=== PATIENT | male | born 1945 | race Caucasian/White ===

== ENCOUNTER 2021-07-29 07:40 | Outpatient (REF) | payer MEDICARE, SELFPAY ==
[2021-07-29 10:08] LABS: MANUAL DIFF FLAG NO
[2021-07-29 10:12] LABS: Basophils Absolute Auto 0.1 X10*3/uL (0.0-0.2); Basophils Percent Auto 1.1 % (0-2); Eosinophils Absolute Auto 0.4 X10*3/uL (0.0-0.4); Eosinophils Percent Auto 4.2 % (0-4); Hematocrit 44.8 % (42.0-52.0); Hemoglobin 14.7 g/dl (14.0-18.0); Imm Gran Abs Auto 0.03 X10*3/uL (0.00-0.03); Imm Gran Pct Auto 0.3 % (0.0-0.4); Lymphocytes Absolute Auto 2.1 X10*3/uL (1.2-4.9); Lymphocytes Percent Auto 22.1 % (20-40); Mean Corpuscular HGB Conc 32.8 g/dl (31.0-36.0); Mean Corpuscular Hemoglobin 32.2 pg (27.0-33.0); Mean Corpuscular Volume 98.2 fL (80.0-98.0); Mean Platelet Volume 10.3 fL (9.4-12.4); Monocytes Absolute Auto 0.8 X10*3/uL (0.1-1.2); Neutrophils Percent Auto 64.3 % (45-73); Platelet Count 234 X10*3/uL (160-400); Red Blood Count 4.56 X10*6/uL (4.60-5.80); White Blood Count 9.4 X10*3/uL (4.8-10.8)
[2021-07-29 10:49] LABS: Appearance Urine CLEAR; Color Urine YELLOW; Glucose Urine UA NEG (NEG); Leukocyte Esterase Urine NEG (NEG); Nitrite Urine NEG (NEG); Specific Gravity - Urine 1.025 (1.005-1.025); Urine Blood TRACE (NEG); Urine Ketones NEG (NEG); Urine Protein NEG (NEG-TRACE)
[2021-07-29 10:52] LABS: Alanine Aminotransferase 14 U/L (0-40); Albumin Level 3.9 g/dL (3.5-5.0); Alkaline Phosphatase 74 U/L (39-117); Anion Gap 13 (12-20); Aspartate Amino Transferase 22 U/L (5-37); Bilirubin Total 0.5 mg/dL (0.0-1.0); Blood Urea Nitrogen 16 mg/dL (9-16); Carbon Dioxide 27 mmol/L (22-29); Chloride 107 mmol/L (96-108); Cholesterol 164 mg/dL; Estimated Glomerular Filt Rate > 60; Glucose Fasting 87 mg/dL (60-99); HDL Cholesterol 75 mg/dL; LDL Cholesterol Calculated 78 mg/dl; Potassium 4.6 mmol/L (3.3-5.1); Sodium 142 mmol/L (135-145); Total Protein 6.7 g/dL (6.5-8.0); Triglycerides 58 mg/dL
[2021-07-29 11:14] LABS: Prostate Specific Antigen Scr 0.85 ng/mL (<0.05-4.0)
[2021-07-29 11:31] LABS: Squamous Epithelial Cell Urine TRACE /LPF
== END 2021-07-29 07:41 | disposition home or self-care (01) ==
LOC: HO.10HDL 07:40
PROVIDERS: Visit Provider Internal Medicine
DX: E78.00 Pure hypercholesterolemia, unspecified (principal); N40.0 Benign prostatic hyperplasia without lower urinary tract symptoms; J44.9 Chronic obstructive pulmonary disease, unspecified; Z12.5 Encounter for screening for malignant neoplasm of prostate; Z86.79 Personal history of other diseases of the circulatory system
CPT/HCPCS: 36415; 80053; 80061; 81001; 84153; 85025

== ENCOUNTER 2021-08-06 07:33 | Outpatient (REF) | payer MEDICARE, SELFPAY ==
[2021-08-06 10:27] LABS: Urine Cytology See Pathology rpt
[2021-08-06 10:34] LABS: Appearance Urine CLEAR; Color Urine YELLOW; Glucose Urine UA NEG (NEG); Leukocyte Esterase Urine NEG (NEG); Nitrite Urine NEG (NEG); UACC Culture Trigger NO; Urine Blood TRACE (NEG); Urine Ketones NEG (NEG); Urine Protein NEG (NEG-TRACE)
[2021-08-06 10:46] LABS: WBC Urine 0 /HPF (0-4)
[2021-08-06 10:47] LABS: Squamous Epithelial Cell Urine TRACE /LPF
== END 2021-08-06 07:34 | disposition home or self-care (01) ==
LOC: HO.10HDL 07:33
PROVIDERS: Visit Provider Internal Medicine
DX: R31.9 Hematuria, unspecified (principal)
CPT/HCPCS: 81001; 87086; 88112

== ENCOUNTER 2022-04-18 15:27 | Outpatient (REF) | payer MEDICARE, SELFPAY ==
--- NOTE | ~2022-04-18 | CT_ITS ---
EXAMINATION: CT CHEST SCREENING CLINICAL INFORMATION: Current smoker. 60 pack year history. COMPARISON: None. TECHNIQUE: Multidetector volumetric CT imaging of the chest is performed without contrast using low dose technique. Additional 2D coronal and sagittal reformatted images and axial 3D maximum intensity projection (MIP) images are generated on the CT workstation. This CT examination was performed using dose optimization techniques as appropriate, variously including the following: *Automated exposure control *Adjustment of mA and/or kV according to patient size (this includes techniques or standardized protocols for targeted exams where dose is matched to indication/reason for exam; i.e. extremities or head) *Use of iterative reconstruction technique DLP: 54 mGy-cm FINDINGS: LUNGS: There is evidence of paraseptal emphysema. There is a 3 mm calcified right upper lobe nodule axial image 103 series 5. There is a 3 mm noncalcified left upper lobe nodule axial image 107 series 5. There is mild scarring or atelectasis in the apical posterior segment of the left upper lobe near the fissure axial image 123 series 5. There is a 2 mm right upper lobe nodule axial image 168 series 5. There is a 5 mm calcified right upper lobe nodule axial image 173 series 5. There is a 3 mm calcified right lower lobe nodule axial image 379 series 5. There is a 2 mm calcified right lower lobe nodule axial image 283 series 5. There are clustered peribronchial nodules in the lingula and anterior left lower lobe suggestive of airways disease. No endobronchial or endotracheal lesion. MEDIASTINUM: Atherosclerotic disease and coronary artery calcification. The thoracic aorta is upper normal in size. The mediastinum is otherwise normal. PLEURA: There is no pleural effusion. No pleural mass or thickening. AXILLA: No lymphadenopathy. UPPER ABDOMEN: Unremarkable OSSEOUS STRUCTURES: Mild scoliosis and degenerative changes of the spine. CT/CT lung screening IMPRESSION: Emphysema and small calcified and noncalcified pulmonary nodules. Clustered peribronchial nodules in the left lung base suggestive of tree-in-bud appearance or airways disease. Coronary artery calcification and atherosclerotic disease ASSESSMENT: Lung-RADS category 2: Benign RECOMMENDATION: Annual low-dose chest CT follow-up recommended.
== END 2022-04-18 15:28 | disposition home or self-care (01) ==
LOC: HO.CT 15:27
PROVIDERS: PCP Internal Medicine; Visit Provider Physician Assistant Medical
DX: F17.210 Nicotine dependence, cigarettes, uncomplicated (principal)
CPT/HCPCS: 71271; G0296

== ENCOUNTER 2023-01-01 10:14 | Outpatient (REF) | payer MEDICARE, SELFPAY ==
[2023-01-01 11:37] LABS: Appearance Urine Clear; Color Urine Yellow; Glucose Urine UA Negative (Negative); Leukocyte Esterase Urine Negative (Negative); Nitrite Urine Negative (Negative); PH 6.5 (5.0-9.0); Urine Blood Negative (Negative); Urine Ketones Negative (Negative); Urine Protein Negative (Neg-Trace)
[2023-01-01 12:36] LABS: Alanine Aminotransferase 12 U/L (0-40); Albumin Level 3.8 g/dL (3.5-5.0); Alkaline Phosphatase 78 U/L (39-117); Anion Gap 14 (12-20); Aspartate Amino Transferase 23 U/L (5-37); Bilirubin Total 0.6 mg/dL (0.0-1.0); Blood Urea Nitrogen 17 mg/dL (9-16); Carbon Dioxide 25 mmol/L (22-29); Chloride 106 mmol/L (96-108); Estimated Glomerular Filt Rate > 60; Glucose Fasting 83 mg/dL (60-99); Potassium 4.9 mmol/L (3.3-5.1); Prostate Specific Antigen 0.92 ng/mL (<0.05-4.0); Sodium 140 mmol/L (135-145); Total Protein 6.6 g/dL (6.5-8.0)
== END 2023-01-01 10:15 | disposition home or self-care (01) ==
LOC: HO.10HDL 10:14
PROVIDERS: Visit Provider Internal Medicine
DX: Z00.00 Encounter for general adult medical examination without abnormal findings (principal); Z12.5 Encounter for screening for malignant neoplasm of prostate; R82.90 Unspecified abnormal findings in urine
CPT/HCPCS: 36415; 80053; 81003; 84153; 87086

== ENCOUNTER 2023-05-12 09:34 | Outpatient (AMB) | payer MEDICARE, SELFPAY ==
[2023-05-12 09:38] VITALS: BP 120/64; PULSE 101; O2SAT 97; BMI 25.6
--- NOTE | 2023-05-12 09:38 | MHC.PC.OV ---
Vital Signs 05/12/23 09:38 Height 5 ft 11 in Weight 183 lb 4 oz BMI 25.6 BP 120/64 Blood Pressure Location Rt brachial Position Sitting Pulse 101 H Pulse Source Pulse Oximeter Pulse Oximetry (%) 97 Oxygen Delivery Method Room Air Intake Visit Reasons: New Patient-general check up Intake Note: Patient is here as a new patient, would like his ears looked at. Has a history of skin cancer. Allergies No Known Allergies Allergy (Verified 05/12/23 09:45) Tobacco use date assessed: 05/12/23 Fall risk assessment: 1 Fall in past year Last assessed Fall Risk: 05/12/23 Dental Screening Dental Screen Date: 05/12/23 Did you have a dental visit in the last 12 months?: Yes Did you have a dental problem in the last 6 months where you did not have access to dental care?: No Was dental information given to patient?: No HPI New Patient-general check up HPI Details New patient Prior PCP:?Dr. Ryder Last office visit/CPE: 2 mo Acute issue(s): Actinic keratoses b/L ears Needs referral to Cardiology; Hx AFib PMHx: R breast cancer, HLD, Skin cancer, Hx AFib SurgHx: R heel bone spur, Spinal stensosis ,Cardioversion x2, R breast Ca SocHx: Smokes 1ppd x 60 years. EtOH 2 drinks daily. No drugs PFSH Medical History History of cancer of right breast Hyperlipidemia Personal history of nicotine dependence Surgical History History of back surgery History of cardioversion History of right mastectomy History of total right hip arthroplasty Social History Housing: House Patient Tobacco Use Status: Current everyday Tobacco user Cigarette Packs Per Day: 1 Years Smoked: onset 13, 1ppd x 63yrs, 60PYH e-Cigarette/Vaping Use: Never Used service: Yes Current occupational status: retired Cognitive needs: No Hearing needs: No Vision needs: Yes (wears glasses) Questionnaire PHQ-9 Over the last 2 weeks, how often have you been bothered by any of the following problems? 1. Little interest or pleasure in doing things: not at all 2. Feeling down, depressed, or hopeless: not at all 3. Trouble falling or staying asleep, or sleeping too much: not at all 4. Feeling tired or having little energy: not at all 5. Poor appetite or overeating: not at all 6. Feeling bad about yourself - or that you are a failure or have let yourself or your family down: not at all 7. Trouble concentrating on things, such as reading the newspaper or watching television: not at all 8. Moving or speaking so slowly that other people could have noticed. Or the opposite - being so fidgety or restless that you have been moving around a lot more than usual: not at all 9. Thoughts that you would be better off or of hurting yourself in some way: not at all Total score: 0 Source: Developed by Drs. Daniel St, Irasema Rios, Henry Soria and colleagues, with an educational mercedez from [employer]. Thrive Questionnaire I am a: Patient What is your living situation today?: I have a steady place to live Within the past 12 months, did the food you bought not last and you didn't have the money to get more?: Never true Within the past 12 months, did you worry whether your food would run out before you got money to buy more?: Never true Do you have trouble paying for medicines?: No Do you have trouble getting transportation to medical appointments?: No Do you have trouble paying your heating and electricity bill?: No Do you have trouble taking care of your child, family member or friend?: No Do you have trouble with day-to-day activities such as bathing, preparing meals, shopping, managing finances, etc.?: No Are you currently unemployed and looking for a job?: No Are you interested in more education?: No AUDIT C Alcohol Use Questionnaire (AUDIT-C) 1. How often do you have a drink containing alcohol?: 4 or more times a week 2. How many drinks containing alcohol do you have on a typical day when you are drinking?: 1 or 2 3. How often do you have six or more drinks on one occasion?: Never Total Score: 4 NANCY-7 AMB Questionnaire NANCY-7 Feeling nervous, anxious, or on edge: 0 = Not at all Not being able to stop or control worryin = Not at all Worrying too much about different things: 0 = Not at all Trouble relaxin = Not at all Being so restless that it is hard to sit still: 0 = Not at all Becoming easily annoyed or irritable: 0 = Not at all Feeling afraid as if something awful might happen: 0 = Not at all Total NANCY-7 score (0-4 normal; 5-9 mild; 10-14 moderate; 15-21 severe): 0 Source: Developed by Drs. Daniel St, Irasema Rios, Henry Soria and colleagues, with an educational mercedez from [employer]. Review of Systems Const Denies chills, Denies fatigue, Denies fever(s), Denies headache(s) and Denies weakness ENT Denies dizziness and Denies headache(s) Card Denies chest pain, Denies lightheadedness, Denies dyspnea and Denies other (Palpitations) Resp Denies cough, Denies dyspnea, Denies wheezing and Denies other ( shortness of breath) Musc Denies numbness and Denies tingling Neuro Denies dizziness, Denies headache(s), Denies numbness, Denies tingling, Denies paresthesias and Denies weakness Psych Denies anxiety and Denies depression Endo Denies fatigue Aller/Immun Denies wheezing Physical exam (Primary Care) Vital Signs: Last Vital Signs Pulse 101 H 05/12/23 09:38 BP 120/64 05/12/23 09:38 Pulse Ox 97 05/12/23 09:38 Oxygen Delivery Method Room Air 05/12/23 09:38 BMI result Body Mass Index 25.6 Tobacco/Smoking Status: Tobacco use Status Tobacco use date assessed 05/12/23 05/12/23 09:57 Patient Tobacco Use Status Current everyday Tobacco 05/12/23 09:57 e-Cigarette/Vaping Use Never Used 05/12/23 09:57 PHQ-9: PHQ-9 Score PHQ-9: Total score 0 05/12/23 09:59 Const General: no acute distress and well developed Nutritional Appearance: well nourished Orientation/consciousness: patient oriented x3 HENMT Head: Yes normocephalic and Yes atraumatic Eyes General: appearance normal, both eyes and all related structures Pupils: Equal, round and reactive pupils present EOM: EOMs intact bilaterally Resp Other: Slightly distant breath sounds Effort & Inspection: normal respiratory effort Auscultation: clear to auscultation bilaterally Cardio Rate: regular rate Rhythm: regular rhythm Heart sounds: S1 normal heart sound present, S2 normal heart sound present, no gallops, no murmurs and no rubs Neuro General: patient oriented x3 and No gait normal Cranial nerves: Yes Equal, round and reactive pupils present Psych Affect: normal affect Assessment and Plan Assessment & Plan (1) Actinic keratoses: Code(s): L57.0 - Actinic keratosis Plan: Bilateral ears Referred to Dermatology (2) History of cardioversion: Comment: (for Afib ~ 10 years ago - no issues since) Code(s): Z98.890 - Other specified postprocedural states Plan: History of AFib and cardioversion. Now on flecainide He is not anticoagulated but has regular rate and rhythm He does request a referral to a new claims auditor - referral made (3) History of atrial fibrillation: Code(s): Z86.79 - Personal history of other diseases of the circulatory system Plan: As above (4) Smoker: Code(s): F17.200 - Nicotine dependence, unspecified, uncomplicated Plan: Patient smokes 1 pack per day Encouraged cessation but patient is pre contemplative (5) Unsteady gait: Code(s): R26.81 - Unsteadiness on feet Plan: Mildly unsteady gait - he declines referral to physical therapy (6) Laboratory exam ordered as part of routine general medical examination: Code(s): Z00.00 - Encounter for general adult medical examination without abnormal findings Plan: Check labs Orders: Orders Comprehensive [place]. Panel Fast Today Z00.00 - Encounter for general adult medical examination without abnormal findings Lipid Panel Today Z00.00 - Encounter for general adult medical examination without abnormal findings Prostate Specific Antigen Scr Today Z12.5 - Encounter for screening for malignant neoplasm of prostate TSH reflex Free T4 Today Z00.00 - Encounter for general adult medical examination without abnormal findings Microalbumin, Random (w Creat) Today I10 - Essential (primary) hypertension Complete Blood Count Auto Diff Today Z00.00 - Encounter for general adult medical examination without abnormal findings UA and rflx microscopic Today Z00.00 - Encounter for general adult medical examination without abnormal findings Referrals Dermatology Referral L57.0 - Actinic keratosis Cardiology Referral Z86.79 - Personal history of other diseases of the circulatory system Coding Level of Care Code New Pt Level 3 (41787) Diagnoses Actinic keratoses L57.0 History of cardioversion Z98.890 History of atrial fibrillation Z86.79 Smoker F17.200 Unsteady gait R26.81 Laboratory exam ordered as part of routine general medical examination Z00.00
== END 2023-05-12 10:33 | disposition home or self-care (01) ==
PROVIDERS: PCP Family Medicine; Visit Provider Family Medicine
DX: L57.0 Actinic keratosis (principal); Z98.890 Other specified postprocedural states; Z86.79 Personal history of other diseases of the circulatory system; F17.200 Nicotine dependence, unspecified, uncomplicated; R26.81 Unsteadiness on feet; Z00.00 Encounter for general adult medical examination without abnormal findings
CPT/HCPCS: 99203

== ENCOUNTER 2023-05-22 10:52 | Outpatient (REF) | payer MEDICARE, SELFPAY ==
[2023-05-22 15:00] LABS: MANUAL DIFF FLAG NO
[2023-05-22 15:07] LABS: Basophils Absolute Auto 0.1 X10*3/uL (0.0-0.2); Basophils Percent Auto 0.8 % (0-2); Eosinophils Absolute Auto 0.2 X10*3/uL (0.0-0.4); Eosinophils Percent Auto 1.9 % (0-4); Hematocrit 45.9 % (42.0-52.0); Hemoglobin 15.1 g/dl (14.0-18.0); Imm Gran Abs Auto 0.04 X10*3/uL (0.00-0.03); Imm Gran Pct Auto 0.4 % (0.0-0.4); Lymphocytes Absolute Auto 2.1 X10*3/uL (1.2-4.9); Mean Corpuscular HGB Conc 32.9 g/dl (31.0-36.0); Mean Corpuscular Volume 97.2 fL (80.0-98.0); Mean Platelet Volume 10.6 fL (9.4-12.4); Monocytes Absolute Auto 0.8 X10*3/uL (0.1-1.2); Monocytes Percent Auto 7.1 % (2-11); Neutrophils Absolute Auto 7.9 x10*3/uL (2.0-8.3); Neutrophils Percent Auto 70.8 % (45-73); Platelet Count 282 X10*3/uL (160-400); Red Blood Count 4.72 X10*6/uL (4.60-5.80); White Blood Count 11.2 X10*3/uL (4.8-10.8)
[2023-05-22 15:17] LABS: Appearance Urine Clear; Color Urine Yellow; Glucose Urine UA Negative (Negative); Leukocyte Esterase Urine Trace (Negative); Nitrite Urine Negative (Negative); Specific Gravity - Urine 1.015 (1.005-1.025); UMIC TRIGGER UA YES; Urine Blood Negative (Negative); Urine Ketones Negative (Negative); Urine Protein Negative (Neg-Trace)
[2023-05-22 16:02] LABS: Alanine Aminotransferase 12 U/L (0-40); Alkaline Phosphatase 72 U/L (39-117); Anion Gap 12 (12-20); Aspartate Amino Transferase 21 U/L (5-37); Bilirubin Total 0.5 mg/dL (0.0-1.0); Blood Urea Nitrogen 15 mg/dL (9-16); Calcium 9.3 mg/dL (8.4-10.2); Carbon Dioxide 26 mmol/L (22-29); Chloride 104 mmol/L (96-108); Cholesterol 187 mg/dL (<200); Estimated Glomerular Filt Rate > 60; Glucose Fasting 83 mg/dL (60-99); HDL Cholesterol 69 mg/dL (>40); LDL Cholesterol Calculated 108 mg/dL (<100); Potassium 4.7 mmol/L (3.3-5.1); Sodium 137 mmol/L (135-145); TSH reflex Free T4 < 0.01 uIU/mL (0.32-4.0); Total Protein 7.2 g/dL (6.5-8.0); Triglycerides 50 mg/dL (<150)
[2023-05-22 16:10] LABS: Creatinine Urine 81.27 mg/dL; Microalbum/Creatinine Ratio Ur 9.8 ug/mg cr (<30)
[2023-05-22 17:01] LABS: Free T4 (Free Thyroxine) 0.86 ng/dL (0.71-1.85)
[2023-05-22 21:37] LABS: Bacteria Urine None Seen (None Seen); Hyaline Casts Urine 0-2 /LPF (0-2); Squamous Epithelial Cell Urine 0-2 /HPF (0-2); WBC Urine 0-5 /HPF (0-5)
== END 2023-05-22 10:53 | disposition home or self-care (01) ==
LOC: HO.WFDLDS 10:52
PROVIDERS: Visit Provider Family Medicine
DX: Z00.00 Encounter for general adult medical examination without abnormal findings (principal); I10 Essential (primary) hypertension; Z12.5 Encounter for screening for malignant neoplasm of prostate
CPT/HCPCS: 36415; 80053; 80061; 81001; 81003; 82043; 82570; 84153; 84439; 84443; 85025

== ENCOUNTER 2023-05-25 14:09 | Outpatient (AMB) | payer MEDICARE, SELFPAY ==
--- NOTE | 2023-05-25 14:11 | A.OFFPC_ITS ---
Intake Visit Reasons: follow up labs Intake Note: Patient is following up on blood work today. Allergies No Known Allergies Allergy (Verified 05/25/23 14:13) Tobacco use date assessed: 05/25/23 Fall risk assessment: 1 Fall in past year Last assessed Fall Risk: 05/25/23 Dental Screening Dental Screen Date: 05/25/23 Did you have a dental visit in the last 12 months?: Yes Did you have a dental problem in the last 6 months where you did not have access to dental care?: No Was dental information given to patient?: No HPI follow up labs HPI Details 77 y/o male presents to f/u labs via tel emedicine. TSH level suppressed at < 0.01 uIU/mL. PFSH Medical History (Updated 05/25/23 @ 14:18 by Chao Hicks) Hyperlipidemia History of cancer of right breast Personal history of nicotine dependence Surgical History (Updated 05/12/23 @ 10:08 by Chao Hicks) History of right mastectomy History of cardioversion History of total right hip arthroplasty History of back surgery Social History Housing: House Patient Tobacco Use Status: Current everyday Tobacco user Cigarette Packs Per Day: 1 Years Smoked: onset 13, 1ppd x 63yrs, 60PYH Packs Per Year: 0 e-Cigarette/Vaping Use: Never Used service: Yes Current occupational status: retired Cognitive needs: No Hearing needs: No Vision needs: Yes (wears glasses) Review of Systems Const Denies chills, Denies fatigue, Denies fever(s), Denies headache(s) and Denies weakness ENT Denies dizziness and Denies headache(s) Card Denies dyspnea Resp Denies cough, Denies dyspnea, Denies wheezing and Denies other (shortness of breath) Musc Denies numbness and Denies tingling Neuro Denies dizziness, Denies headache(s), Denies numbness, Denies tingling and Denies weakness Psych Denies anxiety and Denies depression Endo Denies fatigue Aller/Immun Denies wheezing Physical exam (Primary Care) Tobacco/Smoking Status: Tobacco use Status Tobacco use date assessed 05/25/23 05/25/23 14:15 Patient Tobacco Use Status Current everyday Tobacco 05/25/23 14:15 e-Cigarette/Vaping Use Never Used 05/25/23 14:15 Telehealth Telehealth Location of provider rendering services: practice address Location of patient: address on file Patient Identification confirmed using: Name, : Yes Telehealth method: voice only Patient verbally consented to treatment: Yes Patient verbally consented to billing insurance company: Yes Patient informed of any privacy concerns related to visit: Yes Minutes spent on Phone/Video with Pt.: 5 Assessment and Plan Assessment & Plan (1) Low TSH level: Code(s): R79.89 - Other specified abnormal findings of blood chemistry Plan: TSH is suppressed. Patient is not taking thyroid hormone Will repeat thyroid hormone levels May need referral To endocrinology Will call patient if repeat testing requires action. Otherwise health care / medical job titles can update patient. He has an appointment in July Orders: Orders Thyroid Stimulating Hormone Today R7. - Other specified abnormal findings of blood chemistry Basic Metabolic Panel Today R7.89 - Other specified abnormal findings of blood chemistry, Z00.00 - Encounter for general adult medical examination without abnormal findings Complete Blood Count Auto Diff Today R7. - Other specified abnormal findings of blood chemistry, Z00.00 - Encounter for general adult medical examination without abnormal findings Triiodothyronine T3 Total Today R7. - Other specified abnormal findings of blood chemistry Free T4 (Free Thyroxine) Today R7. - Other specified abnormal findings of blood chemistry Coding Level of Care Code Tele Est Pt Level 2 (43925) Diagnoses Low TSH level R79.89
== END 2023-05-25 14:30 | disposition home or self-care (01) ==
LOC: HO.HMGFM 14:09
PROVIDERS: PCP Family Medicine; Visit Provider Family Medicine
DX: R79.89 Other specified abnormal findings of blood chemistry (principal)
CPT/HCPCS: 99441

== ENCOUNTER 2023-06-01 10:14 | Outpatient (REF) | payer MEDICARE, SELFPAY ==
[2023-06-01 11:32] LABS: MANUAL DIFF FLAG NO
[2023-06-01 11:39] LABS: Basophils Absolute Auto 0.1 X10*3/uL (0.0-0.2); Basophils Percent Auto 0.7 % (0-2); Eosinophils Absolute Auto 0.2 X10*3/uL (0.0-0.4); Hematocrit 47.5 % (42.0-52.0); Hemoglobin 15.5 g/dl (14.0-18.0); Imm Gran Abs Auto 0.04 X10*3/uL (0.00-0.03); Imm Gran Pct Auto 0.3 % (0.0-0.4); Lymphocytes Absolute Auto 2.6 X10*3/uL (1.2-4.9); Lymphocytes Percent Auto 21.7 % (20-40); Mean Corpuscular HGB Conc 32.6 g/dl (31.0-36.0); Mean Corpuscular Hemoglobin 31.7 pg (27.0-33.0); Mean Corpuscular Volume 97.1 fL (80.0-98.0); Mean Platelet Volume 10.5 fL (9.4-12.4); Monocytes Percent Auto 8.2 % (2-11); Neutrophils Absolute Auto 7.9 x10*3/uL (2.0-8.3); Neutrophils Percent Auto 67.1 % (45-73); Platelet Count 262 X10*3/uL (160-400); Red Blood Count 4.89 X10*6/uL (4.60-5.80); Red Cell Distribution Width 13.9 % (11.0-16.0); White Blood Count 11.8 X10*3/uL (4.8-10.8)
[2023-06-01 13:17] LABS: Anion Gap 16 (12-20); Blood Urea Nitrogen 14 mg/dL (9-16); Carbon Dioxide 25 mmol/L (22-29); Chloride 105 mmol/L (96-108); Estimated Glomerular Filt Rate > 60; Glucose Random 89 mg/dL (60-115); Potassium 4.6 mmol/L (3.3-5.1); Sodium 141 mmol/L (135-145)
[2023-06-01 13:41] LABS: Free T4 (Free Thyroxine) 0.86 ng/dL (0.71-1.85); Thyroid Stimulating Hormone 1.25 uIU/mL (0.32-4.0)
[2023-06-03 02:23] LABS: Triiodothyronine T3 Total 81 ng/dL (76-181)
== END 2023-06-01 10:15 | disposition home or self-care (01) ==
LOC: HO.WFDLDS 10:14
PROVIDERS: Visit Provider Family Medicine
DX: Z00.00 Encounter for general adult medical examination without abnormal findings (principal); R94.6 Abnormal results of thyroid function studies
CPT/HCPCS: 36415; 80048; 84439; 84443; 84480; 85025

== ENCOUNTER 2023-07-27 13:42 | Outpatient (AMB) | payer MEDICARE, SELFPAY ==
--- NOTE | 2023-07-27 13:46 | MHC.PC.OV ---
Vital Signs 07/27/23 13:49 Height 5 ft 11 in Weight 187 lb BMI 26.1 BP 122/68 Blood Pressure Location Lt brachial Position Sitting Pulse 78 Pulse Source Pulse Oximeter Pulse Oximetry (%) 99 Oxygen Delivery Method Room Air Intake Visit Reasons: Extended exam with f/u labs and health maint. Intake Note: Patient is here for extended exam and follow up on labs. Allergies No Known Allergies Allergy (Verified 07/27/23 13:49) Tobacco use date assessed: 05/25/23 Fall risk assessment: 1 Fall in past year Last assessed Fall Risk: 07/27/23 HPI Extended exam with f/u labs and health maint. HPI Details 68 y/o male presents for an extended exam with f/u labs and health maintenance. No recent CPE-labs to review. Hx of AFib. TSH levels within normal range now from some labs drawn 06/01/23. Pt continues to smoke a pack per day. PFSH Medical History Hyperlipidemia History of cancer of right breast Personal history of nicotine dependence Surgical History History of right mastectomy History of cardioversion History of total right hip arthroplasty History of back surgery Social History Housing: House Patient Tobacco Use Status: Current everyday Tobacco user Cigarette Packs Per Day: 1 Years Smoked: onset 13, 1ppd x 63yrs, 60PYH e-Cigarette/Vaping Use: Never Used service: Yes Current occupational status: retired Cognitive needs: No Hearing needs: No Vision needs: Yes (wears glasses) Review of Systems Const Denies chills, Denies fatigue, Denies fever(s), Denies headache(s) and Denies weakness Eyes Denies change in vision ENT Denies dizziness, Denies headache(s), Denies hearing loss, Denies nasal congestion, Denies sinus pain, Denies sinus pressure and Denies sore throat Card Denies chest pain, Denies lightheadedness, Denies dyspnea and Denies other (palpitations) Resp Denies cough, Denies dyspnea and Denies wheezing GI Denies abdominal pain, Denies melena, Denies hematochezia, Denies change in bowel habits, Denies dyspepsia and Denies nausea Denies hematuria and Denies dysuria Musc Denies abnormal gait, Denies myalgias, Denies arthralgias, Denies numbness and Denies tingling Skin/Breast Denies rash, Denies unusual bruising and Denies wounds Neuro Denies abnormal gait, Denies dizziness, Denies headache(s), Denies memory loss, Denies numbness, Denies Sensory deficit (Neuro), Denies tingling and Denies weakness Psych Denies anxiety, Denies depression and Denies memory loss Endo Denies cold intolerance, Denies fatigue, Denies heat intolerance, Denies polydipsia and Denies polyuria Edmundo/Lymph Denies easy bleeding and Denies easy bruising Aller/Immun Denies wheezing Physical exam (Primary Care) Vital Signs: Last Vital Signs Pulse 78 07/27/23 13:49 BP 122/68 07/27/23 13:49 Pulse Ox 99 07/27/23 13:49 Oxygen Delivery Method Room Air 07/27/23 13:49 BMI result Body Mass Index 26.1 Tobacco/Smoking Status: Tobacco use Status Tobacco use date assessed 05/25/23 07/27/23 13:50 Patient Tobacco Use Status Current everyday Tobacco 07/27/23 13:50 e-Cigarette/Vaping Use Never Used 07/27/23 13:50 Const General: no acute distress, well developed, alert and awake Nutritional Appearance: well nourished Orientation/consciousness: patient oriented x3 HENMT Head: Yes normocephalic and Yes atraumatic Ears: hearing grossly normal bilaterally and TM's normal bilaterally General nose exam: Normal external nose present and Normal nares present Mouth: Normal oral and palatal mucosa present and moist mucous membranes Teeth and gingiva: dentition normal Throat: Yes posterior oropharynx normal Eyes General: appearance normal, both eyes and all related structures Pupils: Equal, round and reactive pupils present and Pupil accommodation reflex normal EOM: EOMs intact bilaterally Neck Neck: Yes normal visual inspection, Yes no lymphadenopathy and Yes trachea midline Thyroid: Thyroid normal Carotids: no bruits Lymphatic: no lymphadenopathy noted Chest Chest palpation & inspection: normal inspection of the chest Resp Other: Dry crackles down at the bottom Effort & Inspection: normal respiratory effort Cardio Rate: regular rate Rhythm: regular rhythm Heart sounds: S1 normal heart sound present, S2 normal heart sound present, no gallops, no murmurs and no rubs Bruits: no abdominal aortic bruits and no carotid bruits GI Palpation (GI): No Abdominal aortic bruit present, Soft to palpation, nontender, No hepatosplenomegaly present and No Rebound tenderness present Auscultation: normal bowel sounds General: Yes no CVA tenderness Back/Spine/Pelvis Back: no CVA tenderness Cervical Spine: cervical ROM normal and No Cervical spine tenderness Thoracic/Lumbar Spine: thoraco-lumbar ROM normal, No pain with thoraco-lumbar ROM, No thoracic spinal tenderness and No lumbar spinal tenderness Skin Lesions: no lesions Rashes: no rashes Trauma: no lacerations or abrasions Wounds: no wounds Nails: normal Neuro General: patient oriented x3 Cranial nerves: Yes Equal, round and reactive pupils present Cognition (Neuro): normal cognition Gait exam (Neuro): Normal gait present Motor exam (neuro): 5/5 motor strength present throughout Sensory Exam: No Sensory deficit (Neuro) Deep tendon reflexes (DTR's): Right patellar reflex intensity grade: 2+ and Left patellar reflex intensity grade: 2+ Extrem General: Yes normal to inspection and No edema Psych Appearance: grossly normal Affect: normal affect Attitude: cooperative Thought process: Normal thought process present Assessment and Plan Assessment & Plan (1) History of atrial fibrillation: Code(s): Z86.79 - Personal history of other diseases of the circulatory system Plan: Controlled?on?flecainide Has?appointment?with?cardiology?at?[facility] [place] (2) Low TSH level: Code(s): R79.89 - Other specified abnormal findings of blood chemistry Plan: Resolved (3) Screening for prostate cancer: Code(s): Z12.5 - Encounter for screening for malignant neoplasm of prostate Plan: PSA?was?within?normal?limits (4) Smoker: Code(s): F17.200 - Nicotine dependence, unspecified, uncomplicated Plan: Advised?weaning?and?cessation (5) Screening for colon cancer: Code(s): Z12.11 - Encounter for screening for malignant neoplasm of colon Plan: Patient?says?he?had?a?Cologuard?test?about?3?months?ago?with?his?prior?PCP. This?does?not?seem?to?be?included?in?his?records?that?were?sent?over.??Appears?to?be?to?recent. I?am?requesting?report (6) Adult general medical exam: Code(s): Z00.00 - Encounter for general adult medical examination without abnormal findings Plan: 77-year-old?male?presents?for?an?extended?exam Orders: Orders Comprehensive Organ. Panel Fast 11 Months Z00.00 - Encounter for general adult medical examination without abnormal findings Complete Blood Count Auto Diff 11 Months Z00.00 - Encounter for general adult medical examination without abnormal findings Microalbumin, Random (w Creat) 11 Months I10 - Essential (primary) hypertension Prostate Specific Antigen Scr 11 Months Z12.5 - Encounter for screening for malignant neoplasm of prostate UA and rflx microscopic 11 Months Z00.00 - Encounter for general adult medical examination without abnormal findings TSH reflex Free T4 11 Months Z00.00 - Encounter for general adult medical examination without abnormal findings Lipid Panel 11 Months Z00.00 - Encounter for general adult medical examination without abnormal findings Coding Level of Care Code Est Pt Level 4 (46566) Diagnoses History of atrial fibrillation Z86.79 Low TSH level R79.89 Screening for prostate cancer Z12.5 Smoker F17.200 Screening for colon cancer Z12.11 Adult general medical exam Z00.00
[2023-07-27 13:49] VITALS: BP 122/68; PULSE 78; O2SAT 99; BMI 26.1
== END 2023-07-27 14:29 | disposition home or self-care (01) ==
PROVIDERS: PCP Family Medicine; Visit Provider Family Medicine
DX: Z86.79 Personal history of other diseases of the circulatory system (principal); R79.89 Other specified abnormal findings of blood chemistry; Z12.5 Encounter for screening for malignant neoplasm of prostate; F17.200 Nicotine dependence, unspecified, uncomplicated; Z12.11 Encounter for screening for malignant neoplasm of colon; Z00.00 Encounter for general adult medical examination without abnormal findings
CPT/HCPCS: 99214

== ENCOUNTER 2023-08-19 12:40 | Outpatient (AMB) | payer MEDICARE, SELFPAY ==
[2023-08-19 12:55] VITALS: BP 130/76; PULSE 78; BMI 26.3
--- NOTE | 2023-08-19 12:55 | A.OFFVIS_ITS ---
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 Old records from [facility] reviewed. It seems that he was followed up at [facility] for many years but would like to switch as he has moved to the local area. He has a history of atrial fibrillation and underwent GERRI/cardioversion many years ago. He has been maintained on flecainide only. By patient's own choice, he refused anticoagulation and has been this way for. According to him, he is doing fine. He has not had any atrial fibrillation episodes in a long time. In fact none in the last several years. No other cardiac symptoms. [facility] Medical History (Updated 08/19/23 @ 13:34 by John Velazquez MD) PAF (paroxysmal atrial fibrillation) Hyperlipidemia History of cancer of right breast Personal history of nicotine dependence Surgical History History of right mastectomy History of cardioversion History of total right hip arthroplasty History of back surgery Family History (Updated 08/19/23 @ 12:58 by Magy Del Rosario) Paternal Grandfather Heart attack Social History Housing: House Patient Tobacco Use Status: Current everyday Tobacco user Cigarette Packs Per Day: 1 Years Smoked: onset 13, 1ppd x 63yrs, 60PYH e-Cigarette/Vaping Use: Never Used service: Yes Current occupational status: retired Cognitive needs: No Hearing needs: No Vision needs: Yes (wears glasses) Review of Systems Const All systems reviewed & are unremarkable except as noted in HPI and below Reports as per HPI and Reports no additional complaints Eyes Reports as per HPI and Denies no additional complaints ENT Denies no additional complaints and Reports as per HPI Card Reports as per HPI, Reports no additional complaints, Denies acrocyanosis, Denies chest pain, Denies leg edema, Denies lightheadedness, Denies palpitations and Denies dyspnea Resp Reports as per HPI, Denies no additional complaints and Denies dyspnea GI Reports as per HPI and Denies no additional complaints Reports no additional complaints and Reports as per HPI Musc Reports no additional complaints and Reports as per HPI Skin/Breast Reports system reviewed and no additional complaints, except as documented Neuro Reports no additional complaints and Reports as per HPI Psych Reports no additional complaints and Reports as per HPI Endo Reports no additional complaints, Reports as per HPI and Denies palpitations Edmundo/Lymph Reports no additional complaints and Reports as per HPI Aller/Immun Reports no additional complaints and Reports as per HPI Physical Exam Vital Signs: Last Vital Signs Pulse 78 08/19/23 12:55 BP 130/76 08/19/23 12:55 BMI result Body Mass Index 26.3 Const General: comfortable and no acute distress Orientation/consciousness: patient oriented x3 HEENT Other: Unremarkable Head: Yes normal to inspection Neck Neck: Yes normal visual inspection Chest Chest palpation & inspection: normal inspection of the chest Resp Auscultation: clear to auscultation bilaterally Cardio Palpation: normal PMI Heart sounds: S1 normal heart sound present, S2 normal heart sound present, no gallops, no murmurs and no rubs GI Palpation (GI): Soft to palpation Back/Spine/Pelvis Other: unremarkable Skin General skin exam: no rashes or lesions noted Neuro General: patient oriented x3 Extrem General: Yes normal to inspection Psych Mental Status: mental status grossly normal Office Procedures EKG Details: EKG with sinus rhythm at 78/Min; OR prolongation 210 millisecond; nonspecific interventricular [place]. [place]. [id number]-[id number], Complete Assessment & Plan Assessment & Plan (1) PAF (paroxysmal atrial fibrillation): Code(s): I48.0 - Paroxysmal atrial fibrillation (2) Encounter for monitoring flecainide therapy: Code(s): Z51.81 - Encounter for therapeutic drug level monitoring; Z79.899 - Other terminal worker (current) drug therapy Plan Per [facility] records, cardioversion in 2014 and has been fine since. Maintained on flecainide. As it has been so many years, we can possibly consider stopping the flecainide and just maintain some beta-blockers. Not on anticoagulation by his own choice. However, would like to get some information including cardiac function and coronary disease status. Hence recommend doing an echocardiogram and stress test. Of note, a non gated CT scan from 2021 shows coronary artery calcification. Will follow-up once these are completed. Orders: Orders CA echo transthoracic complete Today I25.10 - Atherosclerotic heart disease of [place] coronary artery without angina pectoris, I48.0 - Paroxysmal atrial fibrillation CA stress test Today I48.0 - Paroxysmal atrial fibrillation, R07.2 - Precordial pain ECG 3 day holter monitor Today I48.0 - Paroxysmal atrial fibrillation, R00.2 - Palpitations NM cardiolite stress test Today I48.0 - Paroxysmal atrial fibrillation, R07.2 - Precordial pain Coding Level of Care Code New Pt Level 4 (81732) Diagnoses PAF (paroxysmal atrial fibrillation) I48.0 Encounter for monitoring flecainide therapy Z51.81; Z79.899 CPT Codes EKG - CPT: 91746-[id number], Complete ([id number])
== END 2023-08-19 13:19 | disposition home or self-care (01) ==
PROVIDERS: PCP Family Medicine; Visit Provider Internal Medicine
DX: I48.0 Paroxysmal atrial fibrillation (principal); Z51.81 Encounter for therapeutic drug level monitoring; Z79.899 Other long term (current) drug therapy
CPT/HCPCS: 93010; 99204

== ENCOUNTER → 2023-08-19 12:40 | Outpatient (BNVA) | payer MEDICARE, SELFPAY | PROVIDERS: PCP Family Medicine; Visit Provider Internal Medicine | DX: I48.0 Paroxysmal atrial fibrillation (principal); Z51.81 Encounter for therapeutic drug level monitoring; Z79.899 Other long term (current) drug therapy | CPT/HCPCS: 93005; 99202 ==

== ENCOUNTER 2023-09-17 10:56 | Outpatient (REF) | payer MEDICARE, SELFPAY ==
--- NOTE | ~2023-09-17 | CT_ITS ---
EXAMINATION: CT CHEST SCREENING CLINICAL INFORMATION: Current smoker. Current smoker, 1 pack per day. 60 pack-year history. COMPARISON: CT lung screening 04/18/2022. TECHNIQUE: Multidetector volumetric CT imaging of the chest is performed without contrast using low-dose technique. Additional 2D coronal and sagittal reformatted images and axial 3D maximum intensity projection (MIP) images are generated on the CT workstation. This CT examination was performed using dose optimization techniques as appropriate, variously including the following: *Automated exposure control *Adjustment of mA and/or kV according to patient size (this includes techniques or standardized protocols for targeted exams where dose is matched to indication/reason for exam; i.e. extremities or head) *Use of iterative reconstruction technique DLP: 102 mGy-cm FINDINGS: LUNGS: Moderate emphysematous changes are again seen. Peribronchial thickening is present. Some scattered calcified pulmonary granulomas are again noted. 3 mm left upper lobe nodule is unchanged (5:74 compare prior 5:106). Unchanged 5 mm opacity in the left upper lobe most likely representing some scarring (5:94 compare prior 5:123). 2 mm right upper lobe nodule, unchanged (5:147 compare prior 5:168). Stable small triangular perifissural lymph node seen right lower lobe adjacent to major fissure (5:196 compare prior 5:217). A 2 mm right middle lobe nodule has increased in size to 5 mm (5:313 compare prior 5:342). MEDIASTINUM: Visualized thyroid appears normal. Calcific atherosclerotic disease and coronary artery calcification. The thoracic aorta is upper normal in size. The mediastinum is otherwise normal. PLEURA: There is no pleural effusion. No pleural mass or thickening. AXILLA: No lymphadenopathy. UPPER ABDOMEN: Unremarkable. OSSEOUS STRUCTURES: Again seen are mild degenerative changes in the spine. CT/CT lung screening IMPRESSION: Moderate emphysema is present with some unchanged micronodules. There is one 2 mm nodule in the right upper lobe that has increased in size to 5 mm. Given this growth, short-term interval follow up recommended. ASSESSMENT: Lung-RADS category 4A: Suspicious. RECOMMENDATION: Short interval 3-month followup low-dose CT chest.
== END 2023-09-17 10:57 | disposition home or self-care (01) ==
LOC: HO.CT 10:56
PROVIDERS: PCP Family Medicine; Visit Provider Physician Assistant Medical
DX: Z12.2 Encounter for screening for malignant neoplasm of respiratory organs (principal); F17.210 Nicotine dependence, cigarettes, uncomplicated
CPT/HCPCS: 71271

== ENCOUNTER → 2023-09-18 08:30 | Outpatient (REF) | payer MEDICARE, SELFPAY ==
--- NOTE | 2023-09-18 08:36 | CA_ITS ---
Transthoracic Echocardiogram Patient (Last, First, Middle): Rambo Franklin A Gender: Male Date of : 1945 Age: 77 Procedure Date: 09/18/2023 Procedure Type: Transthoracic Echocardiogram Location: OP Height: 180.34 cm Weight: 85.28 kg BSA: 2.05 m2 Heart Rate: bpm BP: 132 / 72 mmHg Developmental Behavioral Physician: CHELSY Referring MD: John Velazquez MD Scrubber Operator: Amanuel Abernathy MD Symptoms: I25.10 - Atherosclerotic heart disease of [place] coronary artery without... Study Quality: Adequate ECG Rhythm: Sinus Conclusions: - 1. Mildly reduced LV ejection fraction of 45-50% with underlying regional wall motion abnormality in the RCA territory with impaired relaxation filling pattern 2. Normal cardiac valvular Doppler 3. Mildly dilated ascending aorta at 3.7 cm 4. No gross pericardial effusion Findings Left Ventricle Normal left ventricular cavity size. There is normal left ventricular wall thickness. The left ventricular systolic function is mildly decreased. The visually estimated ejection fraction is between 45-50%. There is evidence of regional wall motion abnormalities. Spectral Doppler is indicative of an impaired relaxation filling pattern. E/E prime ratio is between 8 and 15 consistent with indeterminate filling pressures. Peak GLS is -11.9%, which is severely reduced. Wall Motion Rest Echo Findings The inferoseptal wall, the apical inferior, mid inferior, and apical septum segments are hypokinetic. The basal inferior segment is akinetic. All other scored wall segments showed normal motion. Right Ventricle Normal right ventricular cavity size and systolic function. Atria The left atrium is normal in size. There is lipomatous hypertrophy of the interatrial septum. There is no evidence of interatrial shunt. The right atrium is normal in size. Aortic Valve Normal aortic valve structure and function. There is no aortic valve stenosis. There is no aortic valve regurgitation. Mitral Valve There is mild anterior mitral leaflet thickening. There is mild mitral annular calcification. There is trace mitral valve regurgitation. There is no mitral valve stenosis. Pulmonic Valve The pulmonic valve is likely normal. Tricuspid Valve Normal tricuspid valve structure. Tricuspid regurgitation envelope is inadequate for calculation of right ventricular systolic pressure. Normal right atrial pressure. Great Vessels The pulmonary artery was not well visualized. There is mild dilatation of the ascending aorta measuring 3.70 cm. Venous The inferior vena cava is normal in size and collapses greater than 50% with inspiration. Pericardium/Pleural There is no evidence of pericardial effusion. Prior Study Comparison No prior study available for comparison. Measurements 2D Linear Measurements IVSd: 0.98 0.6-0.9/0.6-1.0 cm LVIDd: 4.62 3.9-5.3/4.2-5.9 cm LVIDd Index: 2.25 2.4-3.2/2.2-3.1 cm/m2 LVIDs: 3.67 2.0-3.6 cm LVPWd: 0.79 0.7-1.1 cm LA Diam: 3.20 2.7-3.8/3.0-4.0 cm LAIDs Index: 1.56 1.5-2.3 cm/m2 LV Mass: 168.67 67-162/88-224 g LV Mass Index: 82.28 43-95/49-115 g/m2 LVOT Diam: 2.20 3.0+(-)1.3 cm 2D Systolic Function EF 4C: 41.40 >55% EF 2C: 49.70 >55% EF BiP: 46.10 >55% Mitral Valve MV Pk E: 0.63 MV PK A: 0.85 MV Decel Time: 221.00 E/A: 0.70 E'Lateral: 5.55 E'Medial: 5.11 E/E' Med: 12.30 E/E' Lat: 11.40 PHT: 65.00 MVA PHT: 3.38 Decel [place]: 2.85 Aortic Valve AoV Pk Braden: 1.15 AoV Pk Grad: 5.00 SUDHA: 2.67 LVOT LVOT Pk Braden: 0.82 LVOT Mn Braden: 0.58 LVOT VTI: 0.16 LVOT Pk Grad: 3.00 LVOT Mn Grad: 1.00 LVOT Diam: 2.20 LVOT Area: 3.80 Diastolic Function MV Pk E: 0.63 MV Pk A: 0.85 E/A: 0.70 E'Medial: 5.11 E/E' Med: 12.30 E' Laterial: 5.55 E/E' Lat: 11.40 Right Ventricle TAPSE (mm): 14.30 TVS' Braden: 9.79 Tricuspid Valve RA Press: 3.00 Great Vessels Aorta Sinus of Valsalva: 3.50 2.0-3.5 cm Ao Asc: 3.70 2.1-3.4 cm Ao Arch: 2.80 Pulmonary Valve PV Pk Braden: 0.68 Peak PV Grad: 2.00 Updated in Other Vendor System with Status of Final Amanuel Abernathy MD electronically signed on 09/19/2023 10:08:17 AM with status of Final
--- NOTE | 2023-09-18 08:36 | HM_ITS ---
Conclusion: 1. Patient was monitored for total period of 2 days and 23 hours 2. Baseline was normal sinus rhythm with average heart of 77 beats per minute 3. No significant pauses noted 4. Frequent PACs noted with total burden of 1.2% with 7 short supraventricular runs, longest lasting 15 beats and the fastest 151 beats per minute 5. No patient reported events MTDD
== END ==
LOC: HO.CARD 08:30
PROVIDERS: PCP Family Medicine; Visit Provider Internal Medicine
DX: R00.2 Palpitations (principal); I25.10 Atherosclerotic heart disease of native coronary artery without angina pectoris; I48.0 Paroxysmal atrial fibrillation
CPT/HCPCS: 93242; 93306; 93356

== ENCOUNTER → 2023-09-18 08:36 | Outpatient (BNV) | payer MEDICARE, SELFPAY | PROVIDERS: PCP Family Medicine; Visit Provider Internal Medicine Cardiovascular Disease | DX: I49.1 Atrial premature depolarization (principal) | CPT/HCPCS: 93244; 93306 ==

== ENCOUNTER 2023-11-09 09:16 | Outpatient (AMB) | payer MEDICARE, SELFPAY ==
--- NOTE | 2023-11-08 18:52 | MHC.OFFVIS ---
Intake Vital Signs 11/09/23 09:21 Height 5 ft 11 in Weight 197 lb 5.019 oz BMI 27.5 BP 122/64 Blood Pressure Location Lt brachial Position Sitting Pulse 62 Pulse Source Pulse Oximeter Pulse Oximetry (%) 98 Oxygen Delivery Method Room Air Intake Visit Reasons: Solitary pulmonary nodule Cinder Block Mason Required: No Stem Cleaning Machine Feeder: Stem Cleaning Machine Feeder offered & declined Accompanied by: Self / Same As Patient Allergies No Known Allergies Allergy (Verified 11/09/23 09:24) Medication List - Last Reconciled 11/09/23 by Lanette Maynard LPN metoprolol tartrate 25 mg PO BID HPI Solitary pulmonary nodule HPI Details Rambo is a pleasant 78-year-old male, current 1 ppd smoker, with 60 pack year history, underlying COPD, atrial fibrillation s/p cardioversion, hypertension and history of breast cancer status post mastectomy on the right. He was referred from the lung cancer screening program for pulmonary evaluation. His most recent chest CT was read as a RADS 4A for an increasing nodule of the RML. Full report below. Overall he reports good control of respiratory symptoms without a respiratory medication regimen. He reports dyspnea with moderate exertion at baseline and denies wheezing, chest tightness or productive cough. Of note, over the last few days he reports productive cough with white to yellow sputum and wheezing. He denies any pertinent family history. 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 [facility] Medical History (Updated 11/08/23 @ 18:57 by Smita Griffiths NP) PAF (paroxysmal atrial fibrillation) Hyperlipidemia History of cancer of right breast Personal history of nicotine dependence Surgical History History of right mastectomy History of cardioversion History of total right hip arthroplasty History of back surgery Family History (Updated 08/19/23 @ 12:58 by Magy Del Rosario) Paternal Grandfather Heart attack Social History (Updated 11/09/23 @ 09:25 by Lanette Maynard LPN) Housing: House Patient Tobacco Use Status: Current everyday Tobacco user Tobacco use type: Cigarette Cigarette Packs Per Day: 1 Years Smoked: onset 13, 1ppd x 63yrs, 60PYH e-Cigarette/Vaping Use: Never Used service: Yes Current occupational status: retired Cognitive needs: No Hearing needs: No Vision needs: Yes (wears glasses) Review of Systems Const Denies chills, Denies excessive sweating, Denies fever(s), Denies headache(s) and Denies night sweats Eyes Denies dry eyes, Denies irritation and Denies itchy eyes ENT Reports Normal hearing present, Denies headache(s), Denies nasal congestion, Denies nasal discharge, Denies post nasal drip and Denies sore throat Card Denies chest pain, Denies chest pain at rest, Denies chest pain with activity, Denies claudication, Denies leg edema, Denies orthopnea and Denies paroxysmal nocturnal dyspnea Resp Denies chest congestion, Denies excessive phlegm production, Denies pain on inspiration, Denies pain with cough and Denies stridor Musc Denies myalgias Neuro Reports Normal hearing present and Denies headache(s) Endo Denies excessive sweating Edmundo/Lymph Denies lymphadenopathy Aller/Immun Denies itchy eyes and Denies seasonal rhinorrhea Physical Exam Vital Signs: Last Vital Signs Pulse 62 11/09/23 09:21 BP 122/64 11/09/23 09:21 Pulse Ox 98 11/09/23 09:21 Oxygen Delivery Method Room Air 11/09/23 09:21 BMI result Body Mass Index 27.5 Const General: cooperative, healthy appearing, comfortable, no acute distress, well developed and alert Orientation/consciousness: patient oriented x3 Limitations: no limitations HEENT Head: Yes normal to inspection, Yes normocephalic and Yes atraumatic Ears: hearing grossly normal bilaterally and external ears normal Eyes General: appearance normal, both eyes and all related structures Eyelids: Yes eyelids normal Sclerae: sclerae normal EOM: EOMs intact bilaterally Neck Neck: Yes normal visual inspection and Yes no lymphadenopathy Lymphatic: no lymphadenopathy noted Chest Chest palpation & inspection: normal inspection of the chest Resp Effort & Inspection: normal respiratory effort, able to speak in complete sentences, no audible wheezes, no cough, no stridor, not tachypneic, no tripod positioning and no use of accessory muscles Auscultation: no crackles, no wheezes and diminished lung sounds Cardio Jugular venous distension: no JVD Rate: regular rate Rhythm: regular rhythm Skin Other: warm, dry General skin exam: no rashes or lesions noted Neuro General: patient oriented x3 Cranial nerves: Yes Normal hearing present Cognition (Neuro): normal cognition Gait exam (Neuro): Normal gait present Extrem General: Yes normal to inspection, Yes capillary refill normal, Yes no clubbing, cyanosis or edema and Yes no pedal edema Psych Appearance: grossly normal and well kempt Speech and movement: Normal speech and movement present and Clear speech present Affect: normal affect Attitude: cooperative Thought process: Normal thought process present Thought content: Normal thought content present Insight: Good insight present (Psych) Judgement: Good judgement present (Psych) Results Reviewed Results Reviewed: [address] [address] [address] Scan Report Signed Patient: Rambo Franklin MR#: [id number] : 1945 Acct:[id number] Age/Sex: 77 / M ADM Date: 09/17/23 Loc: .CT Attending Dr: Avis Francis PA-C Ordering Physician: Avis Francis PA-C Date of Service: 09/17/23 Procedure(s): CT lung screening Accession Number(s): [id number] cc: Wilfred Haile MD; Avis Francis PA-C~ EXAMINATION: CT CHEST SCREENING CLINICAL INFORMATION: Current smoker. Current smoker, 1 pack per day. 60 pack-year history. COMPARISON: CT lung screening 04/18/2022. TECHNIQUE: Multidetector volumetric CT imaging of the chest is performed without contrast using low-dose technique. Additional 2D coronal and sagittal reformatted images and axial 3D maximum intensity projection (MIP) images are generated on the CT workstation. This CT examination was performed using dose optimization techniques as appropriate, variously including the following: *Automated exposure control *Adjustment of mA and/or kV according to patient size (this includes techniques or standardized protocols for targeted exams where dose is matched to indication/reason for exam; i.e. extremities or head) *Use of iterative reconstruction technique DLP: 102 mGy-cm FINDINGS: LUNGS: Moderate emphysematous changes are again seen. Peribronchial thickening is present. Some scattered calcified pulmonary granulomas are again noted. 3 mm left upper lobe nodule is unchanged (5:74 compare prior 5:106). Unchanged 5 mm opacity in the left upper lobe most likely representing some scarring (5:94 compare prior 5:123). 2 mm right upper lobe nodule, unchanged (5:147 compare prior 5:168). Stable small triangular perifissural lymph node seen right lower lobe adjacent to major fissure (5:196 compare prior 5:217). A 2 mm right middle lobe nodule has increased in size to 5 mm (5:313 compare prior 5:342). MEDIASTINUM: Visualized thyroid appears normal. Calcific atherosclerotic disease and coronary artery calcification. The thoracic aorta is upper normal in size. The mediastinum is otherwise normal. PLEURA: There is no pleural effusion. No pleural mass or thickening. AXILLA: No lymphadenopathy. UPPER ABDOMEN: Unremarkable. OSSEOUS STRUCTURES: Again seen are mild degenerative changes in the spine. CT/CT lung screening IMPRESSION: Moderate emphysema is present with some unchanged micronodules. There is one 2 mm nodule in the right upper lobe that has increased in size to 5 mm. Given this growth, short-term interval follow up recommended. ASSESSMENT: Lung-RADS category 4A: Suspicious. RECOMMENDATION: Short interval 3-month followup low-dose CT chest. Dictated By: Taras Bailey MD Signed By: <Electronically signed by Taras Bailey MD in OV> 09/20/23 1606 DD/ 1145 TD/TT: Airport Manager: SS Assessment & Plan Assessment & Plan (1) COPD (chronic obstructive pulmonary disease): Code(s): J44.9 - Chronic obstructive pulmonary disease, unspecified (2) Emphysema of lung: Code(s): J43.9 - Emphysema, unspecified (3) Pulmonary nodule: Code(s): R91.1 - Solitary pulmonary nodule Steffi Ricks presents for follow up on chest CT from the lung cancer screening program. CT revealed moderate emphysema with multiple pulmonary nodules <5 mm that have been stable. However, there was an increase in a RML nodule from 2mm to 5 mm and read as a RADS 4A. A chest CT was already placed through the lung cancer screening program for a 3 month follow up. Will also send for PFT to evaluate severity of COPD. At this time, patient reports mild symptoms of URI and declines any antibiotics. He is aware if symptoms persist or worsen to call office. We also discussed empirically treating with daily inhaler for dyspnea however patient declined at this time. All questions were answered and patient is in agreement of plan will follow-up to review results PFT and chest CT, or sooner if needed. Orders: Orders PFT pulmonary function test Today J44.9 - Chronic obstructive pulmonary disease, unspecified Coding Level of Care Code New Pt Level 4 (97485) Diagnoses COPD (chronic obstructive pulmonary disease) J44.9 Emphysema of lung J43.9 Pulmonary nodule R91.1
[2023-11-09 09:21] VITALS: BP 122/64; PULSE 62; O2SAT 98; BMI 27.5
== END 2023-11-09 09:41 | disposition home or self-care (01) ==
PROVIDERS: PCP Family Medicine; Referring Provider Family Medicine; Visit Provider Nurse Practitioner Family
DX: J44.9 Chronic obstructive pulmonary disease, unspecified (principal); J43.9 Emphysema, unspecified; R91.1 Solitary pulmonary nodule
CPT/HCPCS: 99204

== ENCOUNTER → 2023-11-09 09:16 | Outpatient (BNVA) | payer MEDICARE, SELFPAY | PROVIDERS: PCP Family Medicine; Referring Provider Family Medicine; Visit Provider Nurse Practitioner Family | DX: J44.9 Chronic obstructive pulmonary disease, unspecified (principal); J43.9 Emphysema, unspecified; R91.1 Solitary pulmonary nodule | CPT/HCPCS: 99202 ==

== ENCOUNTER 2023-11-17 10:37 | Outpatient (AMB) | payer MEDICARE, SELFPAY ==
[2023-11-17 10:41] VITALS: BP 163/80; PULSE 51; BMI 27.1
--- NOTE | 2023-11-17 10:41 | A.OFFVIS_ITS ---
Intake Vital Signs 11/17/23 10:41 Height 5 ft 11 in Weight 194 lb 7.163 oz BMI 27.1 BP 163/80 H Blood Pressure Location Rt brachial Position Sitting Pulse 51 Intake Visit Reasons: Other Fecal Abnormalities Intake Note: New patient in office today d/t abnormal cologuard test. CC: Patient states he can't remember when he last had a colonoscopy done. Denies having any GI symptoms today. Corporate Strategy Intern Required: No Accompanied by: Self / Same As Patient Allergies No Known Allergies Allergy (Verified 11/17/23 10:43) HPI Other Fecal Abnormalities HPI Details 78-year-old male here for preprocedural meeting to discuss a screening colonoscopy in the context of having a positive Cologuard test. He is referred by Wilfred Haile of [facility] primary care. PMX COPD Smoker Paroxysmal atrial fibrillation - no more after cardioversion High cholesterol History of breast cancer Unsteady gait History of actinic keratoses History of cardioversion * SURGICAL HISTORY Right mastectomy Cardioversion Right hip replacement Lumbar spinal stenosis surgery * ALLERGIES: NKDA * Omnidrone LABS: Laboratory Tests 05/22/23 05/22/23 06/01/23 10:55 10:55 10:15 WBC 11.8 H Hgb 15.5 Hct 47.5 Plt Count Estimated GFR > 60 Total Bilirubin 0.5 AST 21 ALT 12 Alkaline Phosphata se 72 TSH Free T4 06/01/23 06/01/23 10:15 10:15 WBC Hgb Hct Plt Count 262 Estimated GFR Total Bilirubin AST ALT Alkaline Phosphata se TSH 1.25 Free T4 0.86 TODAY'S VISIT He has had a prior scope many years ago that was negative and well tolerated. He has a complicated schedule and will not be available for the scope until May. No bowel or upper GI problems. There are no prior problems with anesthesia or sedation. His afib has been gone since cardioversion and his COPD is well controlled. No ID problems. No known FHX of crc or polyps. [facility] Medical History (Updated 11/17/23 @ 10:52 by SINGH Roberts) Emphysema of lung Encounter for monitoring flecainide therapy Screening for prostate cancer Screening for colon cancer Adult general medical exam Smoker History of atrial fibrillation Laboratory exam ordered as part of routine general medical examination PAF (paroxysmal atrial fibrillation) Hyperlipidemia History of cancer of right breast Personal history of nicotine dependence Surgical History (Updated 11/17/23 @ 10:52 by SINGH Roberts) History of cardioversion H/O colonoscopy History of right mastectomy History of total right hip arthroplasty History of back surgery Family History Paternal Grandfather Heart attack Social History Housing: House Patient Tobacco Use Status: Current everyday Tobacco user Tobacco use type: Cigarette Cigarette Packs Per Day: 1 Years Smoked: onset 13, 1ppd x 63yrs, 60PYH e-Cigarette/Vaping Use: Never Used service: Yes Current occupational status: retired Cognitive needs: No Hearing needs: No Vision needs: Yes (wears glasses) Review of Systems Const Denies fatigue, Denies fever(s), Denies night sweats, Denies poor appetite and Denies weight loss Eyes Details: glasses Reports requires corrective lenses ENT Reports Normal hearing present, Denies dental pain, Denies dysphagia, Denies hearing loss, Denies mouth pain, Denies odynophagia, Denies throat swelling, Denies tongue swelling and Reports other (Dentition adequate) GI Details: Denies abdominal pain, Denies melena, Denies bloating, Denies hematochezia, Denies constipation, Denies GI cramping, Denies dysphagia, Denies excessive flatus, Denies early satiety, Denies heartburn, Denies diarrhea, Denies nausea, Denies odynophagia, Denies vomiting and Denies hematemesis Skin/Breast Denies pruritus, Denies lesions, Denies rash and Denies jaundice Neuro Reports Normal hearing present and Denies Abnormal speech present Endo Denies fatigue Aller/Immun Denies throat swelling and Denies tongue swelling Physical Exam Vital Signs: Last Vital Signs Pulse 51 11/17/23 10:41 BP 163/80 H 11/17/23 10:41 BMI result Body Mass Index 27.1 Const General: cooperative, no acute distress, well developed and well groomed Nutritional Appearance: average body habitus and well nourished Orientation/consciousness: oriented to person, oriented to place and oriented to time Limitations: No language barrier HEENT Head: Yes normocephalic and Yes atraumatic Eyes General: appearance normal, both eyes and all related structures Pupils: Equal, round and reactive pupils present Neck Neck: Yes normal visual inspection and Yes no lymphadenopathy Thyroid: Thyroid normal Resp Effort & Inspection: normal respiratory effort and able to speak in complete sentences Auscultation: clear to auscultation bilaterally Cardio Rate: regular rate Rhythm: regular rhythm Heart sounds: Normal, physiologic split S2 sound present Peripheral pulses: radial pulses present and posterior tibial pulses present GI Inspection: No distended and No Abdominal panniculus present Palpation (GI): Soft to palpation, nontender, no guarding, not rigid and No hepatosplenomegaly present Percussion: Yes normal to percussion Auscultation: normal bowel sounds Rectal Exam - Male: Yes deferred Skin General skin exam: no rashes or lesions noted, turgor normal, skin not dry, no jaundice, No spider nevi and no striae Rashes: no rashes Nails: normal Neuro General: oriented to person, oriented to place and oriented to time Cranial nerves: Yes Equal, round and reactive pupils present and Yes Normal hearing present Speech: No Abnormal speech present Extrem General: Yes normal to inspection, No clubbing, No cyanosis and No edema Psych Appearance: grossly normal and well kempt Mental Status: mental status grossly normal Speech and movement: Normal speech and movement present Affect: normal affect Attitude: cooperative Thought process: Normal thought process present and not confabulating Thought content: Normal thought content present Insight: Good insight present (Psych) Judgement: Good judgement present (Psych) Assessment & Plan Assessment & Plan (1) Pre-op chest exam: Code(s): Z01.811 - Encounter for preprocedural respiratory examination (2) Positive colorectal cancer screening using Cologuard test: Code(s): R19.5 - Other fecal abnormalities (3) COPD (chronic obstructive pulmonary disease): Code(s): J44.9 - Chronic obstructive pulmonary disease, unspecified (4) PAF (paroxysmal atrial fibrillation): Code(s): I48.0 - Paroxysmal atrial fibrillation (5) Personal history of nicotine dependence: Comment: (current smoker, onset 13, 1ppd x 63yrs, 60PYH) Code(s): Z87.891 - Personal history of nicotine dependence Plan He has had a prior scope many years ago that was negative and well tolerated. He has a complicated schedule and will not be available for the scope until May. No bowel or upper GI problems. There are no prior problems with anesthesia or sedation. His afib has been gone since cardioversion and his COPD is well controlled. No ID problems. No known FHX of crc or polyps. Orders: Orders Colonoscopy - GI Use Only Today Z01.811 - Encounter for preprocedural respiratory examination Medications: New peg 3350-electrolytes 236-22.74-6.74 -5.86 gram (Golytely) until fecal effluent is clear; do not exceed a total volume of 2,000 mL 240 mL PO Q10M 1 day 4,000 mL 0RF Z12.11 - Encounter for screening for malignant neoplasm of colon bisacodyl (Dulcolax (bisacodyl)) 10 mg (2 x 5 mg) PO BEDTIME 2 days 4 tabs 0RF Coding Level of Care Code New Pt Level 3 (14103) Diagnoses Pre-op chest exam Z01.811 Positive colorectal cancer screening using Cologuard test R19.5 COPD (chronic obstructive pulmonary disease) J44.9 PAF (paroxysmal atrial fibrillation) I48.0 Personal history of nicotine dependence Z87.891
== END 2023-11-17 11:05 | disposition home or self-care (01) ==
PROVIDERS: PCP Family Medicine; Visit Provider Nurse Practitioner
DX: Z01.811 Encounter for preprocedural respiratory examination (principal); R19.5 Other fecal abnormalities; J44.9 Chronic obstructive pulmonary disease, unspecified; I48.0 Paroxysmal atrial fibrillation; Z87.891 Personal history of nicotine dependence
CPT/HCPCS: 99203

== ENCOUNTER → 2023-11-17 10:37 | Outpatient (BNVA) | payer MEDICARE, SELFPAY | PROVIDERS: PCP Family Medicine; Visit Provider Nurse Practitioner | DX: Z01.811 Encounter for preprocedural respiratory examination (principal); R19.5 Other fecal abnormalities; J44.9 Chronic obstructive pulmonary disease, unspecified; I48.0 Paroxysmal atrial fibrillation; Z87.891 Personal history of nicotine dependence | CPT/HCPCS: 99202 ==

== ENCOUNTER → 2023-11-23 09:57 | Outpatient (REF) | payer MEDICARE, SELFPAY ==
--- NOTE | 2023-11-23 09:59 | CA_ITS ---
Acquisition Time: 2023-11-23 09:59:20 Total Exercise Time: 00:02:33 Test Indications: AFIB Medications: SEE H Protocol: WENDY Max HR: 176 BPM 125% of Pred: 140 BPM Max BP: 168/080 mmHG Max Work Load: 4.6 METS Exercuse stress test exercise 2 min 33 sec of Wendy protocol , went into atrial firbillation and could not tolerate treadmill. Max rate 130 bpm in atrial fibrillation - asymptomic Referred By: John Velazquez Overread By: Diana Ramon
== END ==
LOC: HO.CARD 09:57
PROVIDERS: PCP Family Medicine; Visit Provider Internal Medicine
DX: R07.2 Precordial pain (principal); I48.0 Paroxysmal atrial fibrillation
CPT/HCPCS: 93017; J0280; J2785

== ENCOUNTER → 2023-11-23 09:59 | Outpatient (BNV) | payer MEDICARE, SELFPAY | PROVIDERS: PCP Family Medicine; Visit Provider Nurse Practitioner | DX: I48.91 Unspecified atrial fibrillation (principal) | CPT/HCPCS: 93010; 93016; 93018 ==

== ENCOUNTER 2023-11-23 11:49 | Emergency (ER) | payer MEDICARE, SELFPAY ==
--- NOTE | ~2023-11-23 | XR_ITS ---
EXAMINATION: XR CHEST CLINICAL INFORMATION: Atrial fibrillation COMPARISON: None available. TECHNIQUE: Frontal view of the chest was obtained. FINDINGS: Aside from mild peribronchial thickening, no other significant abnormality is noted involving the heart, lungs, mediastinum, bony thorax or soft tissues. XR/XR chest 1V IMPRESSION: Mild peribronchial thickening. No acute intrathoracic disease.
[2023-11-23 11:55] VITALS: BP 134/82; PULSE 119; RESP 18; TEMP 37.1; O2SAT 99; BMI 25.8
--- NOTE | 2023-11-23 12:02 | ED.GENADULT ---
HPI - General Adult General Chief complaint: Arrhythmia/Palpitations Stated complaint: high heart rate Time Seen by Provider: 11/23/23 11:59 History of Present Illness HPI narrative: 78 y/o M patient; PMH atrial fibrillation not on anti-coagulation (hx GERRI/cardioversion 2014, on Flecainide until approx 1 month ago), HLD, active nicotine use, active alcohol uce, COPD; presents from stress lab with report of sudden onset rapid atrial fibrillation while on stress treadmill. The patient received Metoprolol 5mg IV x2 in the stress lab without improvement in HRs. Patient states he has not had any palpitations recently, the increase in his HR occurred while on the treadmill. He denies any associated symptoms: diaphoresis, nausea/vomiting, abdominal pain, diarrhea, SOB. Dust Sampler: Dr. Velazquez Related Data Previous Rx's Medication Instructions Recorded metoprolol tartrate 25 mg tablet 25 mg PO BID #60 tabs 09/21/23 bisacodyl 5 mg tablet,delayed 10 mg (2 x 5 mg) PO BEDTIME 2 days 11/17/23 release (Dulcolax (bisacodyl)) #4 tabs peg 3350-electrolytes 236 240 ml PO Q10M 1 day #4,000 mL 11/17/23 gram-22.74 gram-6.74 gram-5.86 gram solution (Golytely) Allergies Allergy/AdvReac Type Severity Reaction Status Date / Time No Known Allergies Allergy Verified 11/17/23 10:43 Review of Systems Review of Systems: Yes all other systems are reviewed and are negative PMFSH Past Medical History Attestation statement: The following information was validated with the patient. Source: old records reviewed Medical History Emphysema of lung Encounter for monitoring flecainide therapy Screening for prostate cancer Screening for colon cancer Adult general medical exam Smoker History of atrial fibrillation Laboratory exam ordered as part of routine general medical examination PAF (paroxysmal atrial fibrillation) Hyperlipidemia History of cancer of right breast Personal history of nicotine dependence Surgical History History of cardioversion H/O colonoscopy History of right mastectomy History of total right hip arthroplasty History of back surgery Family History Family History Paternal Grandfather Heart attack Social History Social History Housing: House Patient Tobacco Use Status: Current everyday Tobacco user Tobacco use type: Cigarette Cigarette Packs Per Day: 1 Years Smoked: onset 13, 1ppd x 63yrs, 60PYH Smoked in Last 30 Days: Yes e-Cigarette/Vaping Use: Never Used Use of substances other than those prescribed or required for medical reasons: No Advance Directives: No service: Yes Current occupational status: retired Cognitive needs: No Hearing needs: No Vision needs: Yes (wears glasses) Physical Exam ED Vital Signs: Vital Signs - 24 hr 11/23/23 11:55 11/23/23 13:37 Temperature 98.7 F Pulse Rate 119 H 124 H Respiratory Rate 18 Blood Pressure 134/82 Pulse Oximetry 99 Oxygen Delivery Method Room Air BMI result Body Mass Index 25.8 Patient has irregularly irregular tachycardia, normotensive, afebrile. Const General: cooperative and no acute distress Orientation/consciousness: patient oriented x3 HENMT Head: Yes atraumatic Eyes General: appearance normal, both eyes and all related structures Neck Neck: Yes normal visual inspection, Yes full ROM, Yes supple and No tender Chest Chest palpation & inspection: normal inspection of the chest and normal palpation of entire chest wall Resp Effort & Inspection: normal respiratory effort, able to speak in complete sentences, no cough and no respiratory distress Auscultation: clear to auscultation bilaterally Cardio Rate: tachycardic Rhythm: abnormal rhythm Peripheral pulses: Peripheral pulses 2+ throughout GI Inspection: Yes normal to inspection, No Abdominal wall edema and No distended Palpation (GI): Soft to palpation, not firm, nontender, no guarding and not rigid Auscultation: normal bowel sounds Neuro General: patient oriented x3 Course Course Course Narrative: Patient is afebrile, normotensive, in an irregularly irregular tachycardia HR. EKG reviewed and consistent with atrial fibrillation with RVR - suspect 2/2 to recent increased exercise. Has received Metoprolol 5mg IV x2, will provide additional dose of Metoprolol 5mg IV x1. Will discuss with patient's automotive sales manager. Ordered basic labs including electrolytes. Reevaluation(s) Reevaluation #1: Discussed with patient's automotive sales manager - agrees with plan for one time dose of Flecainide 300mg IV and then continuing home dose. Labs with appropriate levels of magnesium and potassium. Patient converted to NSR. Plan: Discharge to home with PCP and Cardiology follow up Return precautions given Medications Administered Discontinued Medications Generic Name Dose Route Start Last Admin Trade Name Freq PRN Reason Stop Dose Admin Flecainide Acetate 300 mg 11/23/23 12:37 11/23/23 13:36 Flecainide Acetate 50 Mg Tablet PO 11/23/23 12:38 300 mg ONCE ONE Administration Metoprolol Tartrate 5 mg 11/23/23 12:22 11/23/23 13:01 Metoprolol Tartrate 5 Mg/5 Ml Vial IVPUSH 11/23/23 12:23 5 mg ONCE ONE Administration Medical Decision Making Lab Data 11/23/23 13:00 11/23/23 13:00 Labs: Lab Results 11/23/23 Range/Units 13:00 WBC 14.0 H (4.8-10.8) X10*3/uL RBC 4.80 (4.60-5.80) X10*6/uL Hgb 15.2 (14.0-18.0) g/dl Hct 46.5 (42.0-52.0) % MCV 96.9 (80.0-98.0) fL MCH 31.7 (27.0-33.0) pg MCHC 32.7 (31.0-36.0) g/dl RDW 13.7 (11.0-16.0) % Plt Count 281 (160-400) X10*3/uL MPV 9.7 (9.4-12.4) fL Immature Gran % (Auto) 0.4 (0.0-0.4) % Neut % (Auto) 74.0 H (45-73) % Lymph % (Auto) 17.3 L (20-40) % Crawford % (Auto) 7.0 (2-11) % Eos % (Auto) 0.9 (0-4) % Baso % (Auto) 0.4 (0-2) % Lymph # (Auto) 2.4 (1.2-4.9) X10*3/uL Crawford # (Auto) 1.0 (0.1-1.2) X10*3/uL Eos # (Auto) 0.1 (0.0-0.4) X10*3/uL Baso # (Auto) 0.1 (0.0-0.2) X10*3/uL Abs Immat Gran (auto) 0.05 H (0.00-0.03) X10*3/uL Absolute Neuts (auto) 10.3 H (2.0-8.3) x10*3/uL Absolute Nucleated RBC 0.000 (0.0-0.012) X10*3/uL Nucleated RBC % (auto) 0.0 (0.0-0.2) /100WBC Sodium 142 (135-145) mmol/L Potassium 4.5 (3.3-5.1) mmol/L Chloride 109 H (96-108) mmol/L Carbon Dioxide 27 (22-29) mmol/L Anion Gap 11 L (12-20) BUN 17 H (9-16) mg/dL Creatinine 1.04 (0.5-1.4) mg/dL Estim Creat Clear Calc 60.3 Estimated GFR > 60 Random Glucose 94 (60-115) mg/dL Calcium 9.3 (8.4-10.2) mg/dL Phosphorus 2.3 L (2.7-4.5) mg/dL Magnesium 1.9 (1.6-2.6) mg/dL Total Bilirubin 0.5 (0.0-1.0) mg/dL Direct Bilirubin 0.2 (0.0-0.5) mg/dL AST 17 (5-37) U/L ALT 12 (0-40) U/L Alkaline Phosphatase 92 (39-117) U/L Total Protein 7.4 (6.5-8.0) g/dL Albumin 3.6 (3.5-5.0) g/dL Lipase 25 (8-78) U/L Independent Interpretation I performed an independent interpretation of an: EKG Interpretation: Atrial fibrillation 128BPM with QTc 481. Discharge Plan Discharge Clinical Impression: PAF (paroxysmal atrial fibrillation) Patient Disposition: Home, Self-Care Instructions: A-fib (Atrial Fibrillation) (DC) Additional Instructions: As we discussed, you were seen today for a fast heart rhythm called atrial fibrillation. You were treated with flecainide and a betablocker - your heart rate returned to a normal rhythm. Recommend you continue to take your home betablocker and re-start the flecainide at your home dose. Please call to follow up with your Dust Sampler within the next 2 days. Return to the ED for palpitations, chest pain, or difficulty breathing. Prescriptions: No Action metoprolol tartrate 25 mg tablet 25 mg PO BID Qty: 60 5RF peg 3350-electrolytes [Golytely] 236-22.74-6.74 -5.86 gram recon soln 240 ml PO Q10M 1 Days Qty: 4000 0RF Rx Instructions: until fecal effluent is clear; do not exceed a total volume of 2,000 mL bisacodyl [Dulcolax (bisacodyl)] 5 mg tablet,delayed release (DR/EC) 10 mg PO BEDTIME 2 Days Qty: 4 0RF Referrals: John Velazquez MD [Physician] - 2 days
--- NOTE | 2023-11-23 12:06 | ECG_ITS ---
Test Reason : AFIB Blood Pressure : / mmHG Vent. Rate : 128 BPM Atrial Rate : 000 BPM P-R Int : 000 ms QRS Dur : 086 ms QT Int : 330 ms P-R-T Axes : 000 -62 003 degrees QTc Int : 481 ms Atrial fibrillation with rapid ventricular response Left axis deviation Nonspecific ST abnormality Abnormal ECG No previous ECGs available Referred By: Zayda Galeana Electronically Signed By:MARTÍNEZ MORALES
[2023-11-23] MEDS: Metoprolol Tartrate 5 MG/5 ML VIAL IVPUSH (13:01)
[2023-11-23 13:05] LABS: MANUAL DIFF FLAG NO
[2023-11-23 13:06] LABS: Basophils Absolute Auto 0.1 X10*3/uL (0.0-0.2); Basophils Percent Auto 0.4 % (0-2); Eosinophils Absolute Auto 0.1 X10*3/uL (0.0-0.4); Eosinophils Percent Auto 0.9 % (0-4); Hematocrit 46.5 % (42.0-52.0); Hemoglobin 15.2 g/dl (14.0-18.0); Imm Gran Abs Auto 0.05 X10*3/uL (0.00-0.03); Imm Gran Pct Auto 0.4 % (0.0-0.4); Lymphocytes Absolute Auto 2.4 X10*3/uL (1.2-4.9); Lymphocytes Percent Auto 17.3 % (20-40); Mean Corpuscular HGB Conc 32.7 g/dl (31.0-36.0); Mean Corpuscular Hemoglobin 31.7 pg (27.0-33.0); Mean Corpuscular Volume 96.9 fL (80.0-98.0); Mean Platelet Volume 9.7 fL (9.4-12.4); Neutrophils Absolute Auto 10.3 x10*3/uL (2.0-8.3); Platelet Count 281 X10*3/uL (160-400); Red Cell Distribution Width 13.7 % (11.0-16.0)
[2023-11-23 13:25] LABS: Alanine Aminotransferase 12 U/L (0-40); Albumin Level 3.6 g/dL (3.5-5.0); Alkaline Phosphatase 92 U/L (39-117); Anion Gap 11 (12-20); Aspartate Amino Transferase 17 U/L (5-37); Bilirubin Direct 0.2 mg/dL (0.0-0.5); Bilirubin Total 0.5 mg/dL (0.0-1.0); Blood Urea Nitrogen 17 mg/dL (9-16); Calcium 9.3 mg/dL (8.4-10.2); Carbon Dioxide 27 mmol/L (22-29); Chloride 109 mmol/L (96-108); Creatinine Clr Calc Pharmacy 60.3; Estimated Glomerular Filt Rate > 60; Glucose Random 94 mg/dL (60-115); Lipase 25 U/L (8-78); Magnesium 1.9 mg/dL (1.6-2.6); Phosphorus 2.3 mg/dL (2.7-4.5); Potassium 4.5 mmol/L (3.3-5.1); Sodium 142 mmol/L (135-145); Total Protein 7.4 g/dL (6.5-8.0)
[2023-11-23] MEDS: Flecainide Acetate 50 MG TABLET 300 MG PO (13:36)
[2023-11-23 13:37] VITALS: PULSE 124
--- NOTE | 2023-11-23 14:39 | ECG_ITS ---
Test Reason : AFIB Blood Pressure : / mmHG Vent. Rate : 068 BPM Atrial Rate : 068 BPM P-R Int : 176 ms QRS Dur : 100 ms QT Int : 400 ms P-R-T Axes : 000 -70 050 degrees QTc Int : 425 ms Artifact in tracing Sinus rhythm with Premature atrial complexes with Aberrant conduction Borderline ECG When compared with ECG of 23-NOV-2023 12:02, Sinus rhythm has replaced Atrial fibrillation Vent. rate has decreased BY 60 BPM Referred By: Zayda Galeana Electronically Signed By:MARTÍNEZ MORALES
[2023-11-23 14:58] VITALS: BP 121/78; PULSE 92; RESP 14; TEMP 36.6; O2SAT 98
[2023-11-23 15:00] VITALS: BP 121/78; PULSE 92; RESP 14; TEMP 36.6; O2SAT 98
== END 2023-11-23 15:06 | disposition home or self-care (01) ==
PROVIDERS: Emergency Provider Emergency Medicine; PCP Family Medicine
DX: I48.0 Paroxysmal atrial fibrillation (principal); J43.9 Emphysema, unspecified
CPT/HCPCS: 36415; 71045; 80048; 80076; 83690; 83735; 84100; 85025; 93005; 96374; 99284; 99285

== ENCOUNTER 2023-11-25 09:45 | Outpatient (REF) | payer MEDICARE, SELFPAY ==
[2023-11-25 11:14] VITALS: PULSE 61; RESP 14; O2SAT 98
--- NOTE | 2023-11-25 13:24 | PFT_ITS ---
Flows: FEV1: 94 % of predicted at 2.79 L FVC: 116 % of predicted at 4.67 L FEV1/FVC: 60 % Bronchodilator response: Absent Volumes: Total lung capacity: 111 % of predicted at 8.07 L Residual volume: 132 % of predicted at 3.82 L Slow vital capacity: 103 % of predicted at 4.25 L Expiratory reserve volume: 85 % of predicted at 1.10 L Diffusion capacity: Normal Impression: Mild obstructive ventilatory defect with no bronchodilator response. Increased residual volume suggests air trapping. MTDD
== END 2023-11-25 09:46 | disposition home or self-care (01) ==
LOC: HO.RESP 09:45
PROVIDERS: PCP Family Medicine; Visit Provider Nurse Practitioner Family
DX: J44.9 Chronic obstructive pulmonary disease, unspecified (principal)
CPT/HCPCS: 94010; 94640; 94727; 94729

== ENCOUNTER → 2023-11-25 13:24 | Outpatient (BNV) | payer MEDICARE, SELFPAY | PROVIDERS: PCP Family Medicine; Visit Provider Internal Medicine Pulmonary Disease | DX: J44.9 Chronic obstructive pulmonary disease, unspecified (principal) | CPT/HCPCS: 94060; 94727; 94729 ==

== ENCOUNTER 2023-12-02 08:41 | Outpatient (AMB) | payer MEDICARE, SELFPAY ==
[2023-12-02 08:51] VITALS: BP 110/60; PULSE 82; BMI 26.1
--- NOTE | 2023-12-02 08:51 | MHC.OFFVIS ---
Intake Vital Signs 12/02/23 08:51 Height 5 ft 11 in Weight 187 lb 6.287 oz BMI 26.1 BP 110/60 Blood Pressure Location Lt brachial Position Sitting Pulse 82 Pulse Source Pulse Oximeter Intake Visit Reasons: ED follow up Casting Molder Required: No Accompanied by: Self / Same As Patient Allergies No Known Allergies Allergy (Verified 11/17/23 10:43) Medication List - Last Reconciled 12/02/23 by John Velazquez MD flecainide 100 mg PO BID metoprolol tartrate 25 mg PO BID HPI HPI Comments History of Present Illness Details Rambo returns for follow-up. Recently seen in consultation regarding atrial fibrillation. He was previously followed at [facility]. Has a history of atrial fibrillation underwent GERRI/cardioversion many years ago. He has been only on flecainide. Also was not on anticoagulation by his own choice. He recently underwent echocardiogram and that showed inferior wall motion abnormality and we stopped the flecainide and switch him to beta-blockers. Then he came for a stress test and at that time he went into atrial fibrillation during the ETT. Then we sent him to ER and he received flecainide and converted to sinus rhythm. He is back on flecainide. We discussed the echocardiographic findings that there is wall motion abnormality and he could have underlying coronary disease. Discussed the fact that flecainide is probably not the best choice but he absolutely wants to stay on it for now while we pursue further testing. Otherwise, he does not have any angina or in fact any cardiac symptoms at all. [facility], [facility] Medical History Emphysema of lung Encounter for monitoring flecainide therapy Screening for prostate cancer Screening for colon cancer Adult general medical exam Smoker History of atrial fibrillation Laboratory exam ordered as part of routine general medical examination PAF (paroxysmal atrial fibrillation) Hyperlipidemia History of cancer of right breast Personal history of nicotine dependence Surgical History History of cardioversion H/O colonoscopy History of right mastectomy History of total right hip arthroplasty History of back surgery Family History Paternal Grandfather Heart attack Social History Housing: House Patient Tobacco Use Status: Current everyday Tobacco user Tobacco use type: Cigarette Cigarette Packs Per Day: 1 Years Smoked: onset 13, 1ppd x 63yrs, 60PYH e-Cigarette/Vaping Use: Never Used service: Yes Current occupational status: retired Cognitive needs: No Hearing needs: No Vision needs: Yes (wears glasses) Review of Systems Const All systems reviewed & are unremarkable except as noted in HPI and below Reports as per HPI and Reports no additional complaints Eyes Reports as per HPI and Denies no additional complaints ENT Denies no additional complaints and Reports as per HPI Card Reports as per HPI, Reports no additional complaints, Denies acrocyanosis, Denies chest pain, Denies leg edema, Denies lightheadedness, Denies palpitations and Denies dyspnea Resp Reports as per HPI, Denies no additional complaints and Denies dyspnea GI Reports as per HPI and Denies no additional complaints Reports no additional complaints and Reports as per HPI Musc Reports no additional complaints and Reports as per HPI Skin/Breast Reports system reviewed and no additional complaints, except as documented Neuro Reports no additional complaints and Reports as per HPI Psych Reports no additional complaints and Reports as per HPI Endo Reports no additional complaints, Reports as per HPI and Denies palpitations Edmundo/Lymph Reports no additional complaints and Reports as per HPI Aller/Immun Reports no additional complaints and Reports as per HPI Physical Exam Vital Signs: Last Vital Signs Pulse 82 12/02/23 08:51 BP 110/60 12/02/23 08:51 BMI result Body Mass Index 26.1 Const General: comfortable and no acute distress Orientation/consciousness: patient oriented x3 HEENT Other: Unremarkable Head: Yes normal to inspection Neck Neck: Yes normal visual inspection Chest Chest palpation & inspection: normal inspection of the chest Resp Auscultation: clear to auscultation bilaterally Cardio Palpation: normal PMI Heart sounds: S1 normal heart sound present, S2 normal heart sound present, no gallops, no murmurs and no rubs GI Palpation (GI): Soft to palpation Back/Spine/Pelvis Other: unremarkable Skin General skin exam: no rashes or lesions noted Neuro General: patient oriented x3 Extrem General: Yes normal to inspection Psych Mental Status: mental status grossly normal Assessment & Plan Assessment & Plan (1) PAF (paroxysmal atrial fibrillation): Code(s): I48.0 - Paroxysmal atrial fibrillation (2) Encounter for monitoring flecainide therapy: Code(s): Z51.81 - Encounter for therapeutic drug level monitoring; Z79.899 - Other terminal manager (current) drug therapy Plan Per [facility] records, cardioversion in 2015 and has been fine since. Maintained on flecainide. Echocardiogram with LVEF of 45-50% and RCA territory wall motion abnormality. During the ETT portion, he went into atrial fibrillation off flecainide. Now he is back on the flecainide. We discussed about using flecainide in suspected coronary disease and proarrhythmic effects extra.. At this time, he strongly feels he would like to just stay on it till we get further testing. He states he has been on it for so many years and never had issues and hence he does not want to change it. Beyond that, other options are probably sotalol or Multaq. We will do a stress test with Lexiscan perfusion imaging study. Follow-up after the above. With regard to anticoagulation, he has been refusing all along. Again discussed and now he states he is willing to try. Start Eliquis. Medications: New apixaban (Eliquis) 5 mg PO BID 90 days 180 tabs 3RF Coding Level of Care Code Est Pt Level 4 (67341) Diagnoses PAF (paroxysmal atrial fibrillation) I48.0 Encounter for monitoring flecainide therapy Z51.81; Z79.899
== END 2023-12-02 09:26 | disposition home or self-care (01) ==
PROVIDERS: PCP Family Medicine; Visit Provider Internal Medicine
DX: I48.0 Paroxysmal atrial fibrillation (principal); Z51.81 Encounter for therapeutic drug level monitoring; Z79.899 Other long term (current) drug therapy
CPT/HCPCS: 99214

== ENCOUNTER → 2023-12-02 08:41 | Outpatient (BNVA) | payer MEDICARE, SELFPAY | PROVIDERS: PCP Family Medicine; Visit Provider Internal Medicine | DX: Z51.81 Encounter for therapeutic drug level monitoring (principal); I48.0 Paroxysmal atrial fibrillation; Z79.899 Other long term (current) drug therapy | CPT/HCPCS: 99212 ==

== ENCOUNTER 2023-12-07 10:36 | Outpatient (AMB) | payer MEDICARE, SELFPAY ==
--- NOTE | 2023-12-07 10:39 | MHC.OFFVIS ---
Intake Vital Signs 12/07/23 10:40 Height 5 ft 11 in Weight 176 lb 5.917 oz BMI 24.6 BP 134/62 Blood Pressure Location Lt brachial Position Sitting Pulse 57 Pulse Source Pulse Oximeter Pulse Oximetry (%) 98 Oxygen Delivery Method Room Air Intake Visit Reasons: Solitary pulmonary nodule Employee Relations Assistant Required: No Manager Multicultural: Manager Multicultural offered & declined Accompanied by: Self / Same As Patient Allergies No Known Allergies Allergy (Verified 12/07/23 10:45) Medication List - Last Reconciled 12/07/23 by Lanette Maynard LPN apixaban (Eliquis) 5 mg PO BID 90 days flecainide 100 mg PO BID metoprolol tartrate 25 mg PO BID HPI Solitary pulmonary nodule HPI Details Rambo is a pleasant 78-year-old male, current 1 ppd smoker, with 60 pack year history, underlying COPD, atrial fibrillation s/p cardioversion, hypertension and history of breast cancer status post mastectomy on the right. His chest CT from September was read as a RADS 4A for an increasing nodule of the RML and he has a CT scheduled at the end of December for close follow up. Since the last visit, he reports respiratory symptoms are controlled without need for medication. He was sent for PFT and presents today to review results. He denies any exacerbations or hospitalizations related to COPD since the last visit. Of note, he is supposed to be maintained on eliquis for afib however it is not financially feasible. His prescribing provider is aware. [facility] Medical History Emphysema of lung Encounter for monitoring flecainide therapy Screening for prostate cancer Screening for colon cancer Adult general medical exam Smoker History of atrial fibrillation Laboratory exam ordered as part of routine general medical examination PAF (paroxysmal atrial fibrillation) Hyperlipidemia History of cancer of right breast Personal history of nicotine dependence Surgical History History of cardioversion H/O colonoscopy History of right mastectomy History of total right hip arthroplasty History of back surgery Family History Paternal Grandfather Heart attack Social History (Updated 12/07/23 @ 10:47 by Lanette Maynard LPN) Housing: House Patient Tobacco Use Status: Current everyday Tobacco user Tobacco use type: Cigarette Cigarette Packs Per Day: 1 Years Smoked: onset 13, 1ppd x 63yrs, 60PYH Smoked in Last 30 Days: Yes e-Cigarette/Vaping Use: Never Used service: Yes Current occupational status: retired Cognitive needs: No Hearing needs: No Vision needs: Yes (wears glasses) Review of Systems Const Denies chills, Denies excessive sweating, Denies fever(s), Denies headache(s) and Denies night sweats Eyes Denies dry eyes, Denies irritation and Denies itchy eyes ENT Reports Normal hearing present, Denies headache(s), Denies nasal congestion, Denies nasal discharge, Denies post nasal drip and Denies sore throat Card Denies chest pain, Denies chest pain at rest, Denies chest pain with activity, Denies claudication, Denies leg edema, Denies orthopnea and Denies paroxysmal nocturnal dyspnea Resp Denies chest congestion, Denies excessive phlegm production, Denies pain on inspiration, Denies pain with cough and Denies stridor Musc Denies myalgias Neuro Reports Normal hearing present and Denies headache(s) Endo Denies excessive sweating Edmundo/Lymph Denies lymphadenopathy Aller/Immun Denies itchy eyes and Denies seasonal rhinorrhea Physical Exam Vital Signs: Last Vital Signs Pulse 57 12/07/23 10:40 BP 134/62 12/07/23 10:40 Pulse Ox 98 12/07/23 10:40 Oxygen Delivery Method Room Air 12/07/23 10:40 BMI result Body Mass Index 24.6 Const General: cooperative, healthy appearing, comfortable, no acute distress, well developed and alert Orientation/consciousness: patient oriented x3 Limitations: no limitations HEENT Head: Yes normal to inspection, Yes normocephalic and Yes atraumatic Ears: hearing grossly normal bilaterally and external ears normal Eyes General: appearance normal, both eyes and all related structures Eyelids: Yes eyelids normal Sclerae: sclerae normal EOM: EOMs intact bilaterally Neck Neck: Yes normal visual inspection and Yes no lymphadenopathy Lymphatic: no lymphadenopathy noted Chest Chest palpation & inspection: normal inspection of the chest Resp Effort & Inspection: normal respiratory effort, able to speak in complete sentences, no audible wheezes, no cough, no stridor, not tachypneic, no tripod positioning and no use of accessory muscles Auscultation: no crackles, no wheezes and diminished lung sounds Cardio Jugular venous distension: no JVD Rate: regular rate Rhythm: regular rhythm Skin Other: warm, dry General skin exam: no rashes or lesions noted Neuro General: patient oriented x3 Cranial nerves: Yes Normal hearing present Cognition (Neuro): normal cognition Gait exam (Neuro): Normal gait present Extrem General: Yes normal to inspection, Yes capillary refill normal, Yes no clubbing, cyanosis or edema and Yes no pedal edema Psych Appearance: grossly normal and well kempt Speech and movement: Normal speech and movement present and Clear speech present Affect: normal affect Attitude: cooperative Thought process: Normal thought process present Thought content: Normal thought content present Insight: Good insight present (Psych) Judgement: Good judgement present (Psych) Assessment & Plan Assessment & Plan (1) COPD (chronic obstructive pulmonary disease): Code(s): J44.9 - Chronic obstructive pulmonary disease, unspecified (2) Emphysema of lung: Code(s): J43.9 - Emphysema, unspecified (3) Pulmonary nodule: Code(s): R91.1 - Solitary pulmonary nodule Plan Reviewed PFT which revealed mild obstructive defect with no response to bronchodilators. Increased TLC, RV suggestive of air trapping. DLCO normal. We discussed trialing a daily inhaler however patient feels his symptoms are well controlled at this time. He is aware to contact the office if respiratory symptoms worsen. He has a follow up [address] scheduled at the end of the month to evaluate an increasing RML nodule from 2 mm to 5 mm which was read as a RADS 4A 09/2023. All questions were answered and patient is in agreement of plan. Will notify patient of chest CT results when complete and follow up PRN. Coding Level of Care Code Est Pt Level 3 (63587) Diagnoses COPD (chronic obstructive pulmonary disease) J44.9 Emphysema of lung J43.9 Pulmonary nodule R91.1
[2023-12-07 10:40] VITALS: BP 134/62; PULSE 57; O2SAT 98; BMI 24.6
== END 2023-12-07 13:08 | disposition home or self-care (01) ==
PROVIDERS: PCP Family Medicine; Visit Provider Nurse Practitioner Family
DX: J44.9 Chronic obstructive pulmonary disease, unspecified (principal); J43.9 Emphysema, unspecified; R91.1 Solitary pulmonary nodule
CPT/HCPCS: 99213

== ENCOUNTER → 2023-12-07 10:36 | Outpatient (BNVA) | payer MEDICARE, SELFPAY | PROVIDERS: PCP Family Medicine; Visit Provider Nurse Practitioner Family | DX: R91.1 Solitary pulmonary nodule (principal); J43.9 Emphysema, unspecified; J44.9 Chronic obstructive pulmonary disease, unspecified; F17.210 Nicotine dependence, cigarettes, uncomplicated; Z85.3 Personal history of malignant neoplasm of breast; Z90.11 Acquired absence of right breast and nipple | CPT/HCPCS: 99212 ==

== ENCOUNTER 2023-12-10 13:12 | Outpatient (AMB) | payer MEDICARE, SELFPAY ==
[2023-12-10 13:16] VITALS: BP 122/64; PULSE 57; O2SAT 100; BMI 26.5
--- NOTE | 2023-12-10 13:16 | MHC.PC.OV ---
Vital Signs 12/10/23 13:16 Height 5 ft 11 in Weight 190 lb BMI 26.5 BP 122/64 Blood Pressure Location Lt brachial Position Sitting Pulse 57 Pulse Source Pulse Oximeter Pulse Oximetry (%) 100 Oxygen Delivery Method Room Air Intake Visit Reasons: Discuss electric shipyard operator Referral Intake Note: Patient is here to discuss referral for ophthamologist. Allergies No Known Allergies Allergy (Verified 12/10/23 13:17) Medication List - Last Reconciled 12/10/23 by Wilfred Haile MD apixaban (Eliquis) 5 mg PO BID 90 days flecainide 100 mg PO BID metoprolol tartrate 25 mg PO BID Tobacco use date assessed: 12/10/23 Fall risk assessment: No Falls in past year Last assessed Fall Risk: 12/10/23 Dental Screening Dental Screen Date: 12/10/23 Did you have a dental visit in the last 12 months?: No Did you have a dental problem in the last 6 months where you did not have access to dental care?: No Was dental information given to patient?: Patient declined HPI Discuss electric shipyard operator Referral HPI Details 78 y/o male presents today to f/u chronic conditions. He is requesting referral to an electric shipyard operator. Pt notes would like a referral for cataracts. He f/u with Cardiology for PAF and flecainide therapy. Ordered a stress test with Lexiscan perfusion imaging study. Currently on flecainide 100mg b.i.d. [facility] Medical History Emphysema of lung Encounter for monitoring flecainide therapy Screening for prostate cancer Screening for colon cancer Adult general medical exam Smoker History of atrial fibrillation Laboratory exam ordered as part of routine general medical examination PAF (paroxysmal atrial fibrillation) Hyperlipidemia History of cancer of right breast Personal history of nicotine dependence Surgical History History of cardioversion H/O colonoscopy History of right mastectomy History of total right hip arthroplasty History of back surgery Family History Paternal Grandfather Heart attack Social History Housing: House Patient Tobacco Use Status: Current everyday Tobacco user Tobacco use type: Cigarette Cigarette Packs Per Day: 1 Years Smoked: onset 13, 1ppd x 63yrs, 60PYH e-Cigarette/Vaping Use: Never Used service: Yes Current occupational status: retired Cognitive needs: No Hearing needs: No Vision needs: Yes (wears glasses) Questionnaire PHQ-9 Over the last 2 weeks, how often have you been bothered by any of the following problems? 1. Little interest or pleasure in doing things: not at all 2. Feeling down, depressed, or hopeless: not at all 3. Trouble falling or staying asleep, or sleeping too much: not at all 4. Feeling tired or having little energy: not at all 5. Poor appetite or overeating: not at all 6. Feeling bad about yourself - or that you are a failure or have let yourself or your family down: not at all 7. Trouble concentrating on things, such as reading the newspaper or watching television: not at all 8. Moving or speaking so slowly that other people could have noticed. Or the opposite - being so fidgety or restless that you have been moving around a lot more than usual: not at all 9. Thoughts that you would be better off or of hurting yourself in some way: not at all Total score: 0 Depression Screening Interpretation: Negative Depression Screening Done: Yes Source: Developed by Drs. Daniel St, Irasema Rios, Henry Soria and colleagues, with an educational mercedez from Figure 1. Thrive Questionnaire Date Thrive assessed: 12/10/23 I am a: Patient What is your living situation today?: I have a steady place to live Within the past 12 months, did the food you bought not last and you didn't have the money to get more?: Never true Within the past 12 months, did you worry whether your food would run out before you got money to buy more?: Never true Do you have trouble paying for medicines?: Yes (eliquis) Do you have trouble getting transportation to medical appointments?: No Do you have trouble paying your heating and electricity bill?: No Do you have trouble taking care of your child, family member or friend?: No Do you have trouble with day-to-day activities such as bathing, preparing meals, shopping, managing finances, etc.?: No Are you currently unemployed and looking for a job?: No Are you interested in more education?: No THRIVE Score: 0 AUDIT C Alcohol Use Questionnaire (AUDIT-C) 1. How often do you have a drink containing alcohol?: 4 or more times a week 2. How many drinks containing alcohol do you have on a typical day when you are drinking?: 1 or 2 3. How often do you have six or more drinks on one occasion?: Never Total Score: 4 NANCY-7 AMB Questionnaire NANCY-7 Date NANCY - 7 assessed: 12/10/23 Feeling nervous, anxious, or on edge: 0 = Not at all Not being able to stop or control worryin = Not at all Worrying too much about different things: 0 = Not at all Trouble relaxin = Not at all Being so restless that it is hard to sit still: 0 = Not at all Becoming easily annoyed or irritable: 0 = Not at all Feeling afraid as if something awful might happen: 0 = Not at all Total NANCY-7 score (0-4 normal; 5-9 mild; 10-14 moderate; 15-21 severe): 0 Source: Developed by Drs. Daniel St, Irasema Rios, Henry Soria and colleagues, with an educational mercedez from Figure 1. Physical exam (Primary Care) Vital Signs: Last Vital Signs Pulse 57 12/10/23 13:16 BP 122/64 12/10/23 13:16 Pulse Ox 100 12/10/23 13:16 Oxygen Delivery Method Room Air 12/10/23 13:16 BMI result Body Mass Index 26.5 Tobacco/Smoking Status: Tobacco use Status Tobacco use date assessed 12/10/23 12/10/23 13:23 Patient Tobacco Use Status Current everyday Tobacco 12/10/23 13:23 Tobacco use type Cigarette 12/10/23 13:23 e-Cigarette/Vaping Use Never Used 12/10/23 13:23 PHQ-9: PHQ-9 Score PHQ-9: Total score 0 12/10/23 13:23 Depression Screening Interpretation: Negative Thrive Assessment: Date of Thrive Assessment Date Thrive assessed 12/10/23 12/10/23 13:23 Assessment and Plan Assessment & Plan (1) PAF (paroxysmal atrial fibrillation): Code(s): I48.0 - Paroxysmal atrial fibrillation Plan: Patient?is?on?flecainide?and?followed?by?cardiology Regular?rate?and?rhythm?today?by?auscultation He?has?an?upcoming?Lexiscan?myocardial?perfusion?imaging?study?and?will?follow-up?with?Cardiology He?is?not?anticoagulated.??Could?not?afford?Eliquis.??Will?try?Xarelto?while?awaiting?discussion?with?Cardiology If?he?has?no?other?choice?we?can?discuss?warfarin?or?aspirin (2) Cataract: Code(s): H26.9 - Unspecified cataract Plan: Referred?to?Ophthalmology?at?patient?request Orders: Referrals Ophthalmology Referral H26.9 - Unspecified cataract Medications: New rivaroxaban (Xarelto) for 35 days 10 mg PO DAILY 90 days 90 tabs 2RF Coding Level of Care Code Est Pt Level 3 (75888) Diagnoses PAF (paroxysmal atrial fibrillation) I48.0 Cataract H26.9
== END 2023-12-10 14:24 | disposition home or self-care (01) ==
PROVIDERS: PCP Family Medicine; Visit Provider Family Medicine
DX: I48.0 Paroxysmal atrial fibrillation (principal); H26.9 Unspecified cataract
CPT/HCPCS: 99213

== ENCOUNTER → 2023-12-29 07:41 | Outpatient (REF) | payer MEDICARE, SELFPAY ==
--- NOTE | ~2023-12-29 | NM_ITS ---
Lexiscan Myocardial perfusion study Indication: Atrial fibrillation, assess for coronary disease and ischemia Technique: The patient was brought in for a Lexiscan perfusion study on 12/29/2023 and was injected 0.4 mg of Lexiscan intravenously. Within a minute of this injection 30 mCi of sestamibi was given intravenously. Images were obtained using the SPECT gamma camera interlaced with the gating device. Images were obtained in supine position. Resting perfusion study was performed on 12/30/2023. Patient was administered 30 mCi of sestamibi intravenously at rest. Images were then obtained in supine position. Images were processed with the software and compared side to side in short axis, horizontal long axis and vertical long axis views. Total DLP 79mGy-cm. Findings: Raw acquisition reviewed. There is dense subdiaphragmatic tracer uptake. The stress perfusion study showed diminished tracer uptake along the inferior wall. With CT attenuation correction, there is globally reduced tracer uptake which is most likely related to the subdiaphragmatic uptake. The gated study shows low normal LV systolic function with calculated LVEF of 54%. LV cavity is normal in size. The gated study shows normal wall thickening and contraction of segments. Resting study shows diminished tracer uptake along the inferior wall. There is improvement with CT attenuation correction suggestive of diaphragmatic attenuation artifact. Gating at rest reveals normal wall motion with ejection fraction at 47%. The findings are consistent with fixed inferior perfusion defect. Could be related to diaphragmatic attenuation artifact. No clear reversible defects.. NM/NM cardiolite stress test Impression: 1. Myocardial perfusion imaging study shows fixed inferior perfusion defect, probably from diaphragmatic attenuation artifact. 2. Gated LVEF is 54% during stress and 47% during rest. Correlate with echocardiogram. 3. Transient ischemic dilatation not present. EKG component of the test reported separately.
--- NOTE | 2023-12-29 07:44 | CA_ITS ---
Acquisition Time: 2023-12-29 08:02:03 Total Exercise Time: 00:02:00 Test Indications: AFIB Medications: SEE H Protocol: LEXISCAN Max HR: 074 BPM 52% of Pred: 140 BPM Max BP: 132/074 mmHG Max Work Load: 1.6 METS Pharmacological stress test with Lexiscan injection while walking slowly on treadmill, without anginal symptoms, without arrhythmias, with normotensive response to injection, with nondiagnostic EKGs. Nuclear images pending. Test reviewed with Dr. Abernathy Referred By: Diana Ramon Overread By: Diana Ramon
== END ==
LOC: HO.CARD 07:41
PROVIDERS: PCP Family Medicine; Visit Provider Internal Medicine
DX: R07.2 Precordial pain (principal); I48.0 Paroxysmal atrial fibrillation
CPT/HCPCS: 78452; 93017; A9500; J0280; J2785

== ENCOUNTER → 2023-12-29 07:44 | Outpatient (BNV) | payer MEDICARE, SELFPAY | PROVIDERS: PCP Family Medicine; Visit Provider Nurse Practitioner | DX: I48.91 Unspecified atrial fibrillation (principal) | CPT/HCPCS: 78452; 93016; 93018 ==

== ENCOUNTER 2023-12-30 08:24 | Outpatient (REF) | payer MEDICARE, SELFPAY ==
--- NOTE | ~2023-12-30 | CT_ITS ---
EXAMINATION: CT CHEST SCREENING CLINICAL INFORMATION: Nicotine dependence, unspecified, uncomplicated. The patient is a current smoker with a 60 pack-year history of smoking. COMPARISON: X-ray chest 11/23/2023. CT chest 09/17/2023: There is one 2 mm nodule in the right upper lobe that has increased in size to 5 mm. Given this growth, short-term interval follow up recommended. TECHNIQUE: Multidetector volumetric CT imaging of the chest is performed on a Siemens SOMATOM Definition scanner without contrast using low dose technique. Additional 2D coronal and sagittal reformatted images and axial 3D maximum intensity projection (MIP) images are generated on the CT workstation. This CT examination was performed using dose optimization techniques as appropriate, variously including the following: *Automated exposure control *Adjustment of mA and/or kV according to patient size (this includes techniques or standardized protocols for targeted exams where dose is matched to indication/reason for exam; i.e. extremities or head) *Use of iterative reconstruction technique DLP: 56 mGy-cm FINDINGS: LUNGS: Emphysematous changes are again seen along with bronchial thickening. PULMONARY NODULES: Scattered pulmonary nodules and calcified granulomas are again seen. Ortega images of all have been saved. Previously seen 2 mm nodule in the left upper lobe abutting the fissure which had increased in size to 5 mm at the time of the prior study is completely unchanged (5:313 compare prior 5:313). Previously seen 3 mm left upper lobe nodule now measures 2 mm (5:84 compare prior 5:74). Perifissural right upper lobe lymph node appears smaller and less dense when compared to the prior study (5:104 compare prior 5:94). There is no new, increasing sized or concerning pulmonary nodule seen. MEDIASTINUM: The mediastinum is normal. CORONARY ARTERY CALCIFICATION: Marked. PLEURA: There is no pleural effusion. No pleural mass or thickening. AXILLA: No lymphadenopathy. UPPER ABDOMEN: Unremarkable OSSEOUS STRUCTURES: Unremarkable. CT/CT lung screen follow up IMPRESSION: No evidence of malignancy. The previously seen micronodule which had increased from 2 to 5 mm is stable. ASSESSMENT: Lung-RADS category 2: Benign RECOMMENDATION: Routine annual low-dose CT screening in 12 months.
== END 2023-12-30 08:25 | disposition home or self-care (01) ==
LOC: HO.CT 08:24
PROVIDERS: PCP Family Medicine; Visit Provider Nurse Practitioner Family
DX: R91.1 Solitary pulmonary nodule (principal); F17.200 Nicotine dependence, unspecified, uncomplicated
CPT/HCPCS: 71250

== ENCOUNTER 2024-01-20 09:39 | Outpatient (AMB) | payer MEDICARE, SELFPAY ==
[2024-01-20 09:42] VITALS: BP 118/60; PULSE 54; O2SAT 96; BMI 26.1
--- NOTE | 2024-01-20 09:42 | MHC.OFFVIS ---
Vital Signs 01/20/24 09:42 Height 5 ft 11 in Weight 187 lb 6.287 oz BMI 26.1 BP 118/60 Blood Pressure Location Lt brachial Position Sitting Pulse 54 Pulse Source Pulse Oximeter Pulse Oximetry (%) 96 Oxygen Delivery Method Room Air Intake Visit Reasons: 4 mth fu sp testing Allergies No Known Allergies Allergy (Verified 12/10/23 13:17) Medication List - Last Reconciled 01/20/24 by John Velazquez MD flecainide 100 mg PO BID metoprolol tartrate 25 mg PO BID rivaroxaban 20 mg PO DAILY 90 days HPI Comments Details: Rambo returns for follow-up. To recall, he was previously followed at [facility]. Has a history of atrial fibrillation underwent GERRI/cardioversion many years ago. He has been on flecainide. Also was not on anticoagulation by his own choice. He recently underwent echocardiogram and that showed inferior wall motion abnormality and we stopped the Flecainide and switched him to beta-blockers. Then he came for a stress test and at that time he went into atrial fibrillation during the ETT. Then we sent him to ER and he received flecainide and converted to sinus rhythm. He is back on flecainide. Following this, he underwent a Lexiscan MIBI that also shows inferior findings. Clinically, he states he feels fine. No angina or in fact any cardiac symptoms at all. Feeling good. [facility] Medical History Emphysema of lung Encounter for monitoring flecainide therapy Screening for prostate cancer Screening for colon cancer Adult general medical exam Smoker History of atrial fibrillation Laboratory exam ordered as part of routine general medical examination PAF (paroxysmal atrial fibrillation) Hyperlipidemia History of cancer of right breast Personal history of nicotine dependence Surgical History History of cardioversion H/O colonoscopy History of right mastectomy History of total right hip arthroplasty History of back surgery Family History Paternal Grandfather Heart attack Social History Housing: House Patient Tobacco Use Status: Current everyday Tobacco user Tobacco use type: Cigarette Cigarette Packs Per Day: 1 Years Smoked: onset 13, 1ppd x 63yrs, 60PYH e-Cigarette/Vaping Use: Never Used service: Yes Current occupational status: retired Cognitive needs: No Hearing needs: No Vision needs: Yes (wears glasses) Review of Systems Const Denies weakness ENT Denies dizziness Card Denies chest pain, Denies chest pain with activity, Denies syncope, Denies rapid heart rate, Denies pedal edema, Denies edema, Denies leg edema, Denies lightheadedness, Denies palpitations, Denies dyspnea, Denies dyspnea on exertion and Denies orthopnea Resp Denies cough, Denies dyspnea and Denies dyspnea on exertion GI Denies hematochezia and Denies change in stool character Musc Denies abnormal gait, Denies muscle cramps, Denies muscle weakness, Denies numbness, Denies radiating pain into limb and Denies tingling Neuro Denies abnormal gait, Denies dizziness, Denies syncope, Denies numbness, Denies tingling and Denies weakness Endo Denies palpitations Physical Exam Vital Signs: Last Vital Signs Pulse 54 01/20/24 09:42 BP 118/60 01/20/24 09:42 Pulse Ox 96 01/20/24 09:42 Oxygen Delivery Method Room Air 01/20/24 09:42 BMI result Body Mass Index 26.1 Const General: comfortable and no acute distress Orientation/consciousness: patient oriented x3 HEENT Other: Unremarkable Head: Yes normal to inspection Neck Neck: Yes normal visual inspection Chest Chest palpation & inspection: normal inspection of the chest Resp Auscultation: clear to auscultation bilaterally Cardio Palpation: normal PMI Heart sounds: S1 normal heart sound present, S2 normal heart sound present, no gallops, no murmurs and no rubs GI Palpation (GI): Soft to palpation Back/Spine/Pelvis Other: unremarkable Skin General skin exam: no rashes or lesions noted Neuro General: patient oriented x3 Extrem General: Yes normal to inspection Psych Mental Status: mental status grossly normal Office Procedures EKG Details: EKG with sinus bradycardia, 54/Min; MA prolongation to 210 milliseconds; rightward axis; no ischemic changes. [id number], Complete Assessment & Plan Assessment & Plan (1) PAF (paroxysmal atrial fibrillation): Code(s): I48.0 - Paroxysmal atrial fibrillation Category: Medical (2) Encounter for monitoring flecainide therapy: Code(s): Z51.81 - Encounter for therapeutic drug level monitoring; Z79.899 - Other buttermaker helper (current) drug therapy Category: Medical (3) Atherosclerotic cardiovascular disease: Code(s): I25.10 - Atherosclerotic heart disease of [place] coronary artery without angina pectoris Category: Medical Plan Cardiac data reviewed. Per [facility] records, cardioversion in 2015. Has been on flecainide since then. Echocardiogram with LVEF of 45-50% and RCA territory wall motion abnormality. Myocardial perfusion imaging study shows fixed inferior defect that could be from a prior infarct. Findings discussed with patient. Advised that with evidence of prior CAD/infarct flecainide should not be used and hence we can stop it. He can give a few days off and then start Multaq instead. To come for an EKG after that. Continue with anticoagulation. With regard to coronary disease findings, recommended diagnostic catheterization but he states he would like to hold off for the time being. He would like to visit that during the next appointment. He is already on some beta-blockers and we can add statins. Medications: New dronedarone (Multaq) must administer with a meal/food 400 mg PO BID 90 tabs 3RF I48.0 - Paroxysmal atrial fibrillation atorvastatin 40 mg PO QPM 90 tabs 3RF I48.0 - Paroxysmal atrial fibrillation Coding Level of Care Code Est Pt Level 4 (38153) Diagnoses PAF (paroxysmal atrial fibrillation) I48.0 Encounter for monitoring flecainide therapy Z51.81; Z79.899 Atherosclerotic cardiovascular disease I25.10 CPT Codes EKG - CPT: 40476-[id number], Complete ([id number])
== END 2024-01-20 10:08 | disposition home or self-care (01) ==
PROVIDERS: PCP Family Medicine; Visit Provider Internal Medicine
DX: I48.0 Paroxysmal atrial fibrillation (principal); Z51.81 Encounter for therapeutic drug level monitoring; Z79.899 Other long term (current) drug therapy; I25.10 Atherosclerotic heart disease of native coronary artery without angina pectoris
CPT/HCPCS: 93010; 99214

== ENCOUNTER → 2024-01-20 09:39 | Outpatient (BNVA) | payer MEDICARE, SELFPAY | PROVIDERS: PCP Family Medicine; Visit Provider Internal Medicine | DX: I48.0 Paroxysmal atrial fibrillation (principal); I25.10 Atherosclerotic heart disease of native coronary artery without angina pectoris; R00.1 Bradycardia, unspecified; R94.31 Abnormal electrocardiogram [ECG] [EKG]; I44.0 Atrioventricular block, first degree; Z51.81 Encounter for therapeutic drug level monitoring; Z79.899 Other long term (current) drug therapy | CPT/HCPCS: 93005; 99212 ==

== ENCOUNTER → 2024-02-08 09:43 | Outpatient (BNVA) | payer MEDICARE, SELFPAY | PROVIDERS: PCP Family Medicine; Visit Provider Internal Medicine ==

== ENCOUNTER 2024-02-26 08:45 | Outpatient (AMB) | payer MEDICARE, SELFPAY ==
--- NOTE | 2024-02-26 09:02 | AM.OFFVISNUR ---
Intake Intake Visit Reasons: EKG AMIODARONE Allergies No Known Allergies Allergy (Verified 12/10/23 13:17) Nursing Note PT IS ON AMIODARONE 400 MG NO CHEST PAIN EKG WAS PERFORMED AND LEFT ON PROVIDERS DESK FOR REVIEWING Office Procedures EKG [id number], Complete Coding CPT Codes EKG - CPT: 90859-[id number], Complete ([id number])
== END 2024-02-26 09:05 | disposition home or self-care (01) ==
PROVIDERS: PCP Family Medicine; Visit Provider Nurse Practitioner
DX: R94.31 Abnormal electrocardiogram [ECG] [EKG] (principal)
CPT/HCPCS: 93010

== ENCOUNTER → 2024-02-26 08:45 | Outpatient (BNVA) | payer MEDICARE, SELFPAY | PROVIDERS: PCP Family Medicine; Visit Provider Nurse Practitioner | DX: R94.31 Abnormal electrocardiogram [ECG] [EKG] (principal); R00.1 Bradycardia, unspecified | CPT/HCPCS: 93005 ==

== ENCOUNTER 2024-05-16 08:18 | Day surgery (SDC) | payer MEDICARE, SELFPAY ==
--- NOTE | 2024-05-13 11:56 | P.CONAN_ITS ---
Documented by User: Maryann Campuzano NP 05/13/24 12:00 HPI - Anesthesia Eval Consult details Narrative: 78yo M for Colonoscopy Xarelto for afib [place] [facility] [place] [facility] Active Problems Active Problems: All Active Problems Atherosclerotic cardiovascular disease (Acute) Cataract (Acute) Pre-op chest exam (Acute) COPD (chronic obstructive pulmonary disease) (Acute) Pulmonary nodule (Acute) Positive colorectal cancer screening using Cologuard test (Acute) PAF (paroxysmal atrial fibrillation) (Acute) Low TSH level (Acute) Unsteady gait (Acute) Actinic keratoses (Acute) Personal history of nicotine dependence (Acute) Past Medical History Medical History Emphysema of lung Encounter for monitoring flecainide therapy Screening for prostate cancer Screening for colon cancer Adult general medical exam Smoker History of atrial fibrillation Laboratory exam ordered as part of routine general medical examination PAF (paroxysmal atrial fibrillation) Hyperlipidemia History of cancer of right breast Personal history of nicotine dependence Family History Family History Paternal Grandfather Heart attack Surgical History Surgical History History of cardioversion H/O colonoscopy History of right mastectomy History of total right hip arthroplasty History of back surgery Social History Social History Housing: House Are you a primary customer care representative to a significant other at home: No Do you presently have visiting nurse or other home services: No Patient Tobacco Use Status: Current everyday Tobacco user Tobacco use type: Cigarette Cigarette Packs Per Day: 1 Cigarettes Per Day: 20.0 Years Smoked: onset 13, 1ppd x 63yrs, 60PYH e-Cigarette/Vaping Use: Never Used Use of substances other than those prescribed or required for medical reasons: No Have you been hit, kicked, punched, or otherwise hurt by someone within the past year? If so, by whom?: No Are you DNR?: No Advance Directives: No Advance Directives Information Provided: Yes Recently lost weight without trying: No service: Yes Current occupational status: retired Cognitive needs: No Hearing needs: No Vision needs: Yes (wears glasses) Meds Allergies Allergy/AdvReac Type Severity Reaction Status Date / Time No Known Allergies Allergy Verified 12/10/23 13:17 Exam Pertinent Lab Results Pertinent Lab Results: Laboratory Tests 11/23/23 13:00 WBC 14.0 H Hgb 15.2 Hct 46.5 Plt Count 281 Sodium 142 Potassium 4.5 Chloride 109 H Carbon Dioxide 27 BUN 17 H Creatinine 1.04 Narrative Narrative: EKG 01/2024 sinus bradycardia, 54/Min; IA prolongation to 210 milliseconds; rightward axis; no ischemic changes. ECHO 09/2023 Conclusions: - 1. Mildly reduced LV ejection fraction of 45-50% with underlying regional wall motion abnormality in the RCA territory with impaired relaxation filling pattern 2. Normal cardiac valvular Doppler 3. Mildly dilated ascending aorta at 3.7 cm 4. No gross pericardial effusion NM cardiolite stress test 2023 Impression: 1. Myocardial perfusion imaging study shows fixed inferior perfusion defect, probably from diaphragmatic attenuation artifact. 2. Gated LVEF is 54% during stress and 47% during rest. Correlate with echocardiogram. 3. Transient ischemic dilatation not present. EKG component of the test reported separately. Assessment and Plan Assessment Anesthesia Assessment: Chart Reviewed Documented by User: Kathi Blanc MD 05/16/24 09:44 PMFSH Past Medical History Medical History Emphysema of lung Encounter for monitoring flecainide therapy Screening for prostate cancer Screening for colon cancer Adult general medical exam Smoker History of atrial fibrillation Laboratory exam ordered as part of routine general medical examination PAF (paroxysmal atrial fibrillation) Hyperlipidemia History of cancer of right breast Personal history of nicotine dependence Family History Family History Paternal Grandfather Heart attack Family history of problems with anesthesia: No Surgical History Surgical History History of cardioversion H/O colonoscopy History of right mastectomy History of total right hip arthroplasty History of back surgery History of Problems with Anesthesia: No Social History Social History Housing: House Are you a primary customer care representative to a significant other at home: No Do you presently have visiting nurse or other home services: No Patient Tobacco Use Status: Current everyday Tobacco user Tobacco use type: Cigarette Cigarette Packs Per Day: 1 Cigarettes Per Day: 20.0 Years Smoked: onset 13, 1ppd x 63yrs, 60PYH e-Cigarette/Vaping Use: Never Used Use of substances other than those prescribed or required for medical reasons: No Have you been hit, kicked, punched, or otherwise hurt by someone within the past year? If so, by whom?: No Are you DNR?: No Advance Directives: No Advance Directives Information Provided: Yes Recently lost weight without trying: No service: Yes Current occupational status: retired Cognitive needs: No Hearing needs: No Vision needs: Yes (wears glasses) Meds Allergies Allergy/AdvReac Type Severity Reaction Status Date / Time No Known Allergies Allergy Verified 12/10/23 13:17 Exam Airway Mallampati Class: II TM Dist: >3cm Neck ROM: Full Heart: rrr Lungs: cta Assessment and Plan Assessment Anesthesia Assessment: Anesthesia Plan Discussed Final Anesthetic Review Family History of Problems with Anesthesia: No History of Problems with Anesthesia: No NPO: Yes ASA Class: III Final Preanesthetic Review: No Changes in Pt Med Stat, Meds/Allgs Chart Reviewed and Consent Obtained/Reviewed Patient Risk: Intermediate Procedure Risk: Low Anesthetic Plan Anesthetic Plan: MAC: Disposition: Standard PACU
[2024-05-16 08:55] VITALS: BP 147/78; PULSE 77; RESP 16; TEMP 36.7; O2SAT 98; BMI 25.2
[2024-05-16] MEDS: Lactated Ringers 1,000 ML 100 ML IVCONT (09:09)
--- NOTE | 2024-05-16 09:58 | MHC.SHP ---
Pre-Procedural Eval Section A - 24 Hr Update-Section A only Date of Service: 05/16/24 The patient is an INPATIENT: No The patient has been examined within 24 hours of the surgical procedure. The History & Physical has been completed within 30 days and I have reviewed it.: No Section B - Complete if H&P > 30 days Chief Complaint: Positive Cologuard test Relevant Family History (Specify if Yes): No Relevant Social History: Tobacco Use Present Medications: see Short Stay Collaborative assessment Medical History: Significant History (Emphysema of lung Encounter for monitoring flecainide therapy Screening for prostate cancer Screening for colon cancer Adult general medical exam Smoker History of atrial fibrillation Laboratory exam ordered as part of routine general medical examination PAF (paroxysmal atrial fibrillation) Hyperlip) History of Previous Operations: Relevant previous surgery/procedure and date(s) (History of cardioversion H/O colonoscopy History of right mastectomy History of total right hip arthroplasty History of back surgery) Allergies: Allergies Allergy/AdvReac Type Severity Reaction Status Date / Time No Known Allergies Allergy Verified 12/10/23 13:17 Review of Systems Sugical H&P ROS: Negative: Constitution, Cardiovascular, Respiratory and Gastrointestinal Exam Surgical H&P Exam: Normal: Heart, Normal: Lungs, Normal: Extremities and Normal: Abdomen Plan Diagnosis/Plan: Unchanged I have reviewed the history and physical and performed a pertinent physical examination on my patient. No changes have occurred unless specified. Time Spent With Patient Time: Total time managing care of this patient today ____ minutes.
[2024-05-16 11:33] VITALS: BP 117/59; PULSE 52; RESP 16; TEMP 36.2; O2SAT 98
--- NOTE | 2024-05-16 11:34 | HO.OPN-COLON ---
Colonoscopy Operative Note Operative Note Date of Service: 05/16/24 Narrative: COLONOSCOPY TILL CECUM WITH SNARE POLYPECTOMY AND SUBMUCOSAL INJECTION Pre-op diagnosis: Colon cancer screening, positive Cologuard test. Post-op diagnosis:? Multiple colon polyps, Diverticulosis, hemorrhoids Endoscopist:? Ganesh Allred MD Anesthesia:?MAC Consent: Indications for the procedure and potential complications of bleeding, perforation, reaction to medications and missed diagnosis were discussed with the patient and informed consent was obtained. Instrument: Olympus CF H 190 L variable stiffness adult colonoscope Monitoring: Vital signs and clinical assessment, intermittent blood pressure monitoring, continuous EKG monitoring, Pulse oximetry and Carbon Dioxide monitoring were done throughout the procedure. Please see anesthesia flowsheet. Colon withdrawl time was 33 minutes. Procedure: The patient was placed in the left lateral decubitis position and pre-procedure medications were administered. After a digital rectal examination of the ano-rectum, the video colonoscope was inserted into the rectum and advanced through the colon to the cecum. The colonoscope was slowly withdrawn in a retrograde panoramic fashion and the colon mucosa was carefully examined including a retroflexed view of the rectum. Findings and interventions are described below. Procedure Difficulty: without difficulty Findings: Terminal Ileum: Not evaluated Cecum: A 12-15 mm flat polyp - raised with 5 cc of Ele[place] and removed with a hot snare Ascending Colon: A 10-12 mm sessile polyp in the distal AC - removed with a hot snare Transverse Colon: Three 8 to 10 mm sessile polyps - removed with a cold snare. A 10-12 mm sessile polyp on a fold and unable to snare depite multiple attempts. Polyp was ablated with a hot biopsy forcep Descending Colon: Moderate diverticulosis Sigmoid Colon: Four 10-15 mm sessile polyps - removed with a hot snare. Severe diverticulosis Rectum: Two 10-12 mm sessile polyps - removed with a hot snare Ano-rectum: Moderate internal hemorrhoids Colon preparation: , Good after copious irrigation. [place] Bowel Preparation Scale Right colon; 2 Transverse colon: 2 Left colon; 2 (0 = Unprepared colon segment with mucosa not seen due to solid stool that cannot be cleared. 1 = Portion of mucosa of the colon segment seen, but other areas of the colon segment not well seen due to staining, residual stool and/or opaque liquid. 2 = Minor amount of residual staining, small fragments of stool and/or opaque liquid, but mucosa of colon segment seen well. 3 = Entire mucosa of colon segment seen well with no residual staining, small fragments of stool or opaque liquid) Impression and Post Procedure Diagnosis: Colonoscopy Findings: Twelve polyps were removed Moderate diverticulosis seen in the left colon Moderate hemorrhoids on retroflexed exam. Plan: Pt has a FU appointment on 05/31/24 with Tatyana De Dios NP Repeat Colonoscopy in 1-2 years if polyps are adenomatous and 10 year if polyps are hyperplastic. Above findings were reviewed with the patient and relevant handouts were given and the discharge area. BIOPSIES SHOWED: A. Colon, cecum, polypectomy: Inflammatory polyp. B. Colon, ascending, polypectomy: Tubular adenoma; negative for high-grade dysplasia. C. Colon, transverse, polypectomy x3: Tubular adenoma (2); negative for high-grade dysplasia. D. Colon, sigmoid, polypectomy x4: Tubular adenoma (1); hyperplastic polyp (3); negative for high-grade dysplasia. E. Rectum, polypectomy x2: Tubular adenoma (1); hyperplastic polyp (1); negative for high-grade dysplasia Letter sent to the patient advising repeat colon in 1 year and patient was placed on the colonoscopy recall list.
[2024-05-16 11:48] VITALS: BP 122/62; PULSE 56; RESP 16; O2SAT 98
[2024-05-16 12:03] VITALS: BP 145/53; PULSE 56; RESP 16; TEMP 36.7; O2SAT 100
== END 2024-05-16 12:30 | disposition home or self-care (01) ==
PROVIDERS: PCP Family Medicine; Visit Provider Internal Medicine Gastroenterology
PROC: 0DJD8ZZ Inspection of Lower Intestinal Tract, Via Natural or Artificial Opening Endoscopic (ICD-10-PCS; CPT 45378; principal; 2024-05-16 10:10)
DX: R19.5 Other fecal abnormalities (principal); D12.2 Benign neoplasm of ascending colon; D12.3 Benign neoplasm of transverse colon; D12.5 Benign neoplasm of sigmoid colon; D12.8 Benign neoplasm of rectum; K51.40 Inflammatory polyps of colon without complications; K57.30 Diverticulosis of large intestine without perforation or abscess without bleeding; K64.8 Other hemorrhoids; J44.9 Chronic obstructive pulmonary disease, unspecified; J43.9 Emphysema, unspecified; E78.00 Pure hypercholesterolemia, unspecified; Z85.3 Personal history of malignant neoplasm of breast; Z79.899 Other long term (current) drug therapy; Z98.890 Other specified postprocedural states; Z87.891 Personal history of nicotine dependence
CPT/HCPCS: 45388; 45385; 45381; 88305; J2704

== ENCOUNTER → 2024-05-16 08:18 | Outpatient (BNV) | payer MEDICARE, SELFPAY | PROVIDERS: PCP Family Medicine; Visit Provider Internal Medicine Gastroenterology | DX: Z12.11 Encounter for screening for malignant neoplasm of colon (principal); R19.5 Other fecal abnormalities; K63.5 Polyp of colon; D12.3 Benign neoplasm of transverse colon; D12.2 Benign neoplasm of ascending colon; D12.5 Benign neoplasm of sigmoid colon; D12.8 Benign neoplasm of rectum | CPT/HCPCS: 45381; 45385 ==

== ENCOUNTER 2024-05-18 13:39 | Outpatient (AMB) | payer MEDICARE, SELFPAY ==
--- NOTE | 2024-05-18 13:41 | A.OFFVIS_ITS ---
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 To recall, he was previously followed at [facility]. Has a history of atrial fibrillation and underwent EGRRI/cardioversion many years ago. He was maintained on flecainide. Also was not on anticoagulation by his own choice. He recently underwent echocardiogram and that showed inferior wall motion abnormality and we stopped the Flecainide and switched him to beta-blockers. Then he came for a stress test and at that time he went into atrial fibrillation during the ETT. Then we sent him to ER and he received flecainide and converted to sinus rhythm. After that, with the system to Multaq but he still had atrial fibrillation and hence he is on amiodarone. He also underwent perfusion imaging showing inferior findings. Overall, he states he feels fine. No cardiac symptoms. [facility] Medical History Emphysema of lung Encounter for monitoring flecainide therapy Screening for prostate cancer Screening for colon cancer Adult general medical exam Smoker History of atrial fibrillation Laboratory exam ordered as part of routine general medical examination PAF (paroxysmal atrial fibrillation) Hyperlipidemia History of cancer of right breast Personal history of nicotine dependence Surgical History History of cardioversion H/O colonoscopy History of right mastectomy History of total right hip arthroplasty History of back surgery Family History (Updated 05/18/24 @ 13:46 by Liset Ocampo CMA) Paternal Grandfather Heart attack Mother Alzheimer disease Father Cancer Social History (Updated 05/18/24 @ 13:46 by Liset Ocampo CMA) Housing: House Are you a primary post acute care nurse practitioner to a significant other at home: No Do you presently have visiting nurse or other home services: No Alcohol intake: current Alcohol intake frequency: 0-2 drinks per day Comment: social Patient Tobacco Use Status: Current everyday Tobacco user Tobacco use type: Cigarette Cigarette Packs Per Day: 1 Cigarettes Per Day: 20.0 Years Smoked: onset 13, 1ppd x 63yrs, 60PYH e-Cigarette/Vaping Use: Never Used service: Yes Current occupational status: retired Cognitive needs: No Hearing needs: No Vision needs: Yes (wears glasses) Review of Systems Const Denies chills, Denies fatigue, Denies fever(s), Denies weight gain and Denies we ight loss ENT Denies dizziness Card Denies chest pain, Denies leg edema, Denies lightheadedness, Denies palpitations, Denies dyspnea on exertion, Denies orthopnea and Denies other Resp Denies cough and Denies dyspnea on exertion GI Denies hematochezia and Denies change in stool character Musc Denies abnormal gait, Denies muscle weakness, Denies numbness, Denies radiating pain into limb and Denies tingling Neuro Denies abnormal gait, Denies dizziness, Denies numbness and Denies tingling Endo Denies fatigue and Denies palpitations Physical Exam Vital Signs: Last Vital Signs Pulse 59 05/18/24 13:42 BP 110/70 05/18/24 13:42 BMI result Body Mass Index 25.5 Const General: comfortable and no acute distress Orientation/consciousness: patient oriented x3 HEENT Other: Unremarkable Head: Yes normal to inspection Neck Neck: Yes normal visual inspection Chest Chest palpation & inspection: normal inspection of the chest Resp Auscultation: clear to auscultation bilaterally Cardio Palpation: normal PMI Heart sounds: S1 normal heart sound present, S2 normal heart sound present, no gallops, no murmurs and no rubs GI Palpation (GI): Soft to palpation Back/Spine/Pelvis Other: unremarkable Skin General skin exam: no rashes or lesions noted Neuro General: patient oriented x3 Extrem General: Yes normal to inspection Psych Mental Status: mental status grossly normal Office Procedures EKG Details: EKG with underlying sinus bradycardia 59/Min; nonspecific ST-T changes; [place]. [id number], Complete Assessment & Plan Assessment & Plan (1) PAF (paroxysmal atrial fibrillation): Code(s): I48.0 - Paroxysmal atrial fibrillation Category: Medical (2) Atherosclerotic cardiovascular disease: Code(s): I25.10 - Atherosclerotic heart disease of [place] coronary artery without angina pectoris Category: Medical Plan Cardiac data reviewed. Per [facility] records, cardioversion in 2014. Has been on Flecainide since then. Echocardiogram with LVEF of 45-50% and RCA territory wall motion abnormality. Myocardial perfusion imaging study shows fixed inferior defect that could be from a prior infarct. Due to suspected coronary disease and unknown anatomy, he is off the flecainide. Currently on amiodarone. We can continue that. Check thyroid function. Again discussed about diagnostic catheterization, but patient would rather like to avoid it and be on conservative medical regimen only. He remains on statins. He will be getting labs before he sees the PCP and we can make adjustments after that. Orders: Orders TSH reflex Free T4 11 Months Z00.00 - Encounter for general adult medical examination without abnormal findings Coding Level of Care Code Est Pt Level 4 (91258) Diagnoses PAF (paroxysmal atrial fibrillation) I48.0 Atherosclerotic cardiovascular disease I25.10 CPT Codes EKG - CPT: 28292-[id number], Complete ([id number])
[2024-05-18 13:42] VITALS: BP 110/70; PULSE 59; BMI 25.5
== END 2024-05-18 14:04 | disposition home or self-care (01) ==
PROVIDERS: PCP Family Medicine; Visit Provider Internal Medicine
DX: I48.0 Paroxysmal atrial fibrillation (principal); I25.10 Atherosclerotic heart disease of native coronary artery without angina pectoris
CPT/HCPCS: 93010; 99214

== ENCOUNTER → 2024-05-18 13:39 | Outpatient (BNVA) | payer MEDICARE, SELFPAY | PROVIDERS: PCP Family Medicine; Visit Provider Internal Medicine | DX: I48.0 Paroxysmal atrial fibrillation (principal); I25.10 Atherosclerotic heart disease of native coronary artery without angina pectoris | CPT/HCPCS: 93005; 99212 ==

== ENCOUNTER 2024-05-31 09:43 | Outpatient (AMB) | payer MEDICARE, SELFPAY ==
--- NOTE | 2024-05-31 09:46 | MHC.OFFVIS ---
Vital Signs 05/31/24 10:02 Height 5 ft 11 in Weight 178 lb 9.191 oz BMI 24.9 BP 128/63 Blood Pressure Location Lt brachial Position Sitting Pulse 47 L Intake Visit Reasons: s/p colon Intake Note: Patient presents to in office follow up s/p colonoscopy. CC: Patient reports doing well and denies having any GI concerns or symptoms today. [employer] Required: No Allergies No Known Allergies Allergy (Verified 05/31/24 10:09) HPI HPI s/p colon: Details: Assessment & Plan (1) Pre-op chest exam: Code(s): Z01.811 - Encounter for preprocedural respiratory examination (2) Positive colorectal cancer screening using Cologuard test: Code(s): R19.5 - Other fecal abnormalities (3) COPD (chronic obstructive pulmonary disease): Code(s): J44.9 - Chronic obstructive pulmonary disease, unspecified (4) PAF (paroxysmal atrial fibrillation): Code(s): I48.0 - Paroxysmal atrial fibrillation (5) Personal history of nicotine dependence: Comment: (current smoker, onset 13, 1ppd x 63yrs, 60PYH) Code(s): Z87.891 - Personal history of nicotine dependence Plan He has had a prior scope many years ago that was negative and well tolerated. He has a complicated schedule and will not be available for the scope until May. No bowel or upper GI problems. There are no prior problems with anesthesia or sedation. His afib has been gone since cardioversion and his COPD is well controlled. No ID problems. No known FHX of crc or polyps. Orders: Orders Colonoscopy - GI Use Only Today Z01.811 - Encounter for preprocedural respiratory examination Medications: New peg 3350-electrolytes 236-22.74-6.74 -5.86 gram (Golytely) until fecal effluent is clear; do not exceed a total volume of 2,000 mL 240 mL PO Q10M 1 day 4,000 mL 0RF Z12.11 - Encounter for screening for malignant neoplasm of colon bisacodyl (Dulcolax (bisacodyl)) 10 mg (2 x 5 mg) PO BEDTIME 2 days 4 tabs 0RF COLONOSCOPY 05/16/24 Findings: Terminal Ileum: Not evaluated Cecum: A 12-15 mm flat polyp - raised with 5 cc of [place] and removed with a hot snare Ascending Colon: A 10-12 mm sessile polyp in the distal AC - removed with a hot snare Transverse Colon: Three 8 to 10 mm sessile polyps - removed with a cold snare. A 10-12 mm sessile polyp on a fold and unable to snare depite multiple attempts. Polyp was ablated with a hot biopsy forcep Descending Colon: Moderate diverticulosis Sigmoid Colon: Four 10-15 mm sessile polyps - removed with a hot snare. Severe diverticulosis Rectum: Two 10-12 mm sessile polyps - removed with a hot snare Ano-rectum: Moderate internal hemorrhoids Impression and Post Procedure Diagnosis: Colonoscopy Findings: Twelve polyps were removed Moderate diverticulosis seen in the left colon Moderate hemorrhoids on retroflexed exam. Plan: Pt has a FU appointment on 05/31/24 with Tatyana De Dios NP Repeat Colonoscopy in 1-2 years if polyps are adenomatous and 10 year if polyps are hyperplastic. Above findings were reviewed with the patient and relevant handouts were given and the discharge area. BIOPSIES SHOWED: A. Colon, cecum, polypectomy: Inflammatory polyp. B. Colon, ascending, polypectomy: Tubular adenoma; negative for high-grade dysplasia. C. Colon, transverse, polypectomy x3: Tubular adenoma (2); negative for high-grade dysplasia. D. Colon, sigmoid, polypectomy x4: Tubular adenoma (1); hyperplastic polyp (3); negative for high-grade dysplasia. E. Rectum, polypectomy x2: Tubular adenoma (1); hyperplastic polyp (1); negative for high-grade dysplasia TODAYS VISIT He says I want a 2 year recall, and even then I'll be 81 and I'll probably say No and take my chances. The procedure was well tolerated. The results were explained and the patient is agreeable to the follow-up interval as stated. The bowel pattern has returned to normal. Education was provided to tell any 1st degree relatives about their findings to be sure that they are screened by age 45. Educated that they will be put on a recall list when it is time for their repeat scope but should they move out of state or away from the hospital they will need to remember along with their primary to repeat the procedure in a timely fashion to avoid any adverse complications. [facility] Medical History Emphysema of lung Encounter for monitoring flecainide therapy Screening for prostate cancer Screening for colon cancer Adult general medical exam Smoker History of atrial fibrillation Laboratory exam ordered as part of routine general medical examination PAF (paroxysmal atrial fibrillation) Hyperlipidemia History of cancer of right breast Personal history of nicotine dependence Surgical History History of cardioversion H/O colonoscopy History of right mastectomy History of total right hip arthroplasty History of back surgery Family History Paternal Grandfather Heart attack Mother Alzheimer disease Father Cancer Social History Housing: House Are you a primary respiratory care specialist to a significant other at home: No Do you presently have visiting nurse or other home services: No Alcohol intake: current Alcohol intake frequency: 0-2 drinks per day Comment: social Patient Tobacco Use Status: Current everyday Tobacco user Tobacco use type: Cigarette Cigarette Packs Per Day: 1 Cigarettes Per Day: 20.0 Years Smoked: onset 13, 1ppd x 63yrs, 60PYH e-Cigarette/Vaping Use: Never Used service: Yes Current occupational status: retired Cognitive needs: No Hearing needs: No Vision needs: Yes (wears glasses) Review of Systems Const Denies fatigue, Denies fever(s), Denies night sweats, Denies poor appetite and Denies weight loss Eyes Details: glasses Reports requires corrective lenses ENT Reports Normal hearing present, Denies dental pain, Denies dysphagia, Denies hearing loss, Denies mouth pain, Denies odynophagia, Denies throat swelling, Denies tongue swelling and Reports other (Dentition adequate) Card Reports no additional complaints Resp Reports no additional complaints GI Details: Denies abdominal pain, Denies melena, Denies bloating, Denies hematochezia, Denies constipation, Denies GI cramping, Denies dysphagia, Denies excessive flatus, Denies early satiety, Denies heartburn, Denies diarrhea, Denies nausea, Denies odynophagia, Denies vomiting and Denies hematemesis Skin/Breast Denies pruritus, Denies lesions, Denies rash and Denies jaundice Neuro Reports Normal hearing present and Denies Abnormal speech present Endo Denies fatigue Aller/Immun Denies throat swelling and Denies tongue swelling Physical Exam Vital Signs: Last Vital Signs Pulse 47 L 05/31/24 10:02 BP 128/63 05/31/24 10:02 BMI result Body Mass Index 24.9 Const General: cooperative, no acute distress, well developed and well groomed Nutritional Appearance: average body habitus and well nourished Orientation/consciousness: oriented to person, oriented to place and oriented to time Limitations: No language barrier HEENT Head: Yes normocephalic and Yes atraumatic Eyes General: appearance normal, both eyes and all related structures Pupils: Equal, round and reactive pupils present Neck Neck: Yes normal visual inspection and Yes no lymphadenopathy Thyroid: Thyroid normal Resp Effort & Inspection: normal respiratory effort and able to speak in complete sentences Auscultation: clear to auscultation bilaterally Cardio Rate: regular rate Rhythm: regular rhythm Heart sounds: Normal, physiologic split S2 sound present Peripheral pulses: radial pulses present and posterior tibial pulses present GI Inspection: No distended and No Abdominal panniculus present Palpation (GI): Soft to palpation, nontender, no guarding, not rigid and No hepatosplenomegaly present Percussion: Yes normal to percussion Auscultation: normal bowel sounds Rectal Exam - Male: Yes deferred Skin General skin exam: no rashes or lesions noted, turgor normal, skin not dry, no jaundice, No spider nevi and no striae Rashes: no rashes Nails: normal Neuro General: oriented to person, oriented to place and oriented to time Cranial nerves: Yes Equal, round and reactive pupils present and Yes Normal hearing present Speech: No Abnormal speech present Extrem General: Yes normal to inspection, No clubbing, No cyanosis and No edema Psych Appearance: grossly normal and well kempt Mental Status: mental status grossly normal Speech and movement: Normal speech and movement present Affect: normal affect Attitude: cooperative Thought process: Normal thought process present and not confabulating Thought content: Normal thought content present Insight: Good insight present (Psych) Judgement: Good judgement present (Psych) Assessment & Plan Assessment & Plan (1) Tubular adenoma of colon: Comment: 04/2024 scope =multiple TA is repeat in 1 year - He says I want a 2 year recall, and even then I'll be 81 and I'll probably say No and take my chances. Code(s): D12.6 - Benign neoplasm of colon, unspecified Category: Medical Plan He says I want a 2 year recall, and even then I'll be 81 and I'll probably say No and take my chances. The procedure was well tolerated. The results were explained and the patient is agreeable to the follow-up interval as stated. The bowel pattern has returned to normal. Education was provided to tell any 1st degree relatives about their findings to be sure that they are screened by age 45. Educated that they will be put on a recall list when it is time for their repeat scope but should they move out of state or away from the hospital they will need to remember along with their primary to repeat the procedure in a timely fashion to avoid any adverse complications. Coding Level of Care Code Est Pt Level 3 (71253) Diagnoses Tubular adenoma of colon D12.6
[2024-05-31 10:02] VITALS: BP 128/63; PULSE 47; BMI 24.9
== END 2024-05-31 10:38 | disposition home or self-care (01) ==
PROVIDERS: PCP Family Medicine; Visit Provider Nurse Practitioner
DX: D12.6 Benign neoplasm of colon, unspecified (principal)
CPT/HCPCS: 99213

== ENCOUNTER → 2024-05-31 09:43 | Outpatient (BNVA) | payer MEDICARE, SELFPAY | PROVIDERS: PCP Family Medicine; Visit Provider Nurse Practitioner | DX: D12.6 Benign neoplasm of colon, unspecified (principal) | CPT/HCPCS: 99212 ==

== ENCOUNTER 2024-07-26 08:56 | Outpatient (REF) | payer MEDICARE, SELFPAY ==
[2024-07-26 11:09] LABS: MANUAL DIFF FLAG NO
[2024-07-26 11:17] LABS: Basophils Absolute Auto 0.1 X10*3/uL (0.0-0.2); Basophils Percent Auto 0.8 % (0-2); Eosinophils Absolute Auto 0.2 X10*3/uL (0.0-0.4); Eosinophils Percent Auto 1.6 % (0-4); Hematocrit 41.9 % (42.0-52.0); Hemoglobin 13.5 g/dl (14.0-18.0); Imm Gran Abs Auto 0.04 X10*3/uL (0.00-0.03); Imm Gran Pct Auto 0.3 % (0.0-0.4); Lymphocytes Absolute Auto 1.8 X10*3/uL (1.2-4.9); Lymphocytes Percent Auto 14.8 % (20-40); Mean Corpuscular HGB Conc 32.2 g/dl (31.0-36.0); Mean Corpuscular Hemoglobin 31.6 pg (27.0-33.0); Mean Corpuscular Volume 98.1 fL (80.0-98.0); Mean Platelet Volume 10.9 fL (9.4-12.4); Monocytes Absolute Auto 0.9 X10*3/uL (0.1-1.2); Monocytes Percent Auto 7.6 % (2-11); Neutrophils Percent Auto 74.9 % (45-73); Platelet Count 235 X10*3/uL (160-400); Red Blood Count 4.27 X10*6/uL (4.60-5.80); Red Cell Distribution Width 14.9 % (11.0-16.0)
[2024-07-26 11:47] LABS: Alanine Aminotransferase 19 U/L (0-40); Albumin Level 3.7 g/dL (3.5-5.0); Alkaline Phosphatase 89 U/L (39-117); Anion Gap 7 (12-20); Aspartate Amino Transferase 32 U/L (5-37); Bilirubin Total 0.6 mg/dL (0.0-1.0); Blood Urea Nitrogen 14 mg/dL (9-16); Calcium 8.8 mg/dL (8.4-10.2); Carbon Dioxide 31 mmol/L (22-29); Chloride 110 mmol/L (96-108); Cholesterol 150 mg/dL (<200); Estimated Glomerular Filt Rate > 60; Glucose Fasting 93 mg/dL (60-99); HDL Cholesterol 68 mg/dL (>40); LDL Cholesterol Calculated 74 mg/dL (<100); Potassium 4.7 mmol/L (3.3-5.1); Sodium 143 mmol/L (135-145); Total Protein 6.8 g/dL (6.5-8.0); Triglycerides 44 mg/dL (<150)
[2024-07-26 11:52] LABS: Prostate Specific Antigen Scr 0.74 ng/mL (<0.05-4.0)
[2024-07-26 14:27] LABS: Appearance Urine Clear; Color Urine Dark Yellow; Glucose Urine UA Negative (Negative); Leukocyte Esterase Urine Trace (Negative); Nitrite Urine Negative (Negative); PH 7.5 (5.0-9.0); UMIC TRIGGER UA YES; Urine Blood Negative (Negative); Urine Ketones Trace mg/dL (Negative); Urine Protein 30 (1+) mg/dL (Neg-Trace)
[2024-07-26 14:44] LABS: Bacteria Urine None Seen (None Seen); Hyaline Casts Urine 0-2 /LPF (0-2); RBC Urine 0-2 /HPF (0-2); Squamous Epithelial Cell Urine 0-2 /HPF (0-2); WBC Urine 0-5 /HPF (0-5)
[2024-07-26 15:13] LABS: Creatinine Urine 151.36 mg/dL; Microalbum/Creatinine Ratio Ur 35.6 ug/mg cr (<30)
== END 2024-07-26 08:57 | disposition home or self-care (01) ==
LOC: HO.WFDLDS 08:56
PROVIDERS: Visit Provider Family Medicine
DX: Z00.00 Encounter for general adult medical examination without abnormal findings (principal); I10 Essential (primary) hypertension; Z12.5 Encounter for screening for malignant neoplasm of prostate
CPT/HCPCS: 36415; 80053; 80061; 81001; 82043; 82570; 84153; 85025

== ENCOUNTER 2024-07-28 08:45 | Outpatient (AMB) | payer MEDICARE, SELFPAY ==
--- NOTE | 2024-07-28 09:19 | MHC.PC.OV ---
Vital Signs 07/28/24 09:20 Height 5 ft 11 in Weight 190 lb BMI 26.5 BP 145/65 H Blood Pressure Location Lt brachial Position Sitting Respiration 16 Pulse 48 L Pulse Source Pulse Oximeter Temp 97.3 F Temp Source Temporal Artery Scan Pulse Oximetry (%) 98 Oxygen Delivery Method Room Air Intake Visit Reasons: extended exam Intake Note: extended exam Allergies No Known Allergies Allergy (Verified 07/28/24 09:19) Tobacco use date assessed: 12/10/23 Dental Screening Dental Screen Date: 12/10/23 HPI extended exam HPI Details 78 y/o male presents for an extended exam with f/u labs and health maintenance. Labs drawn 07/26/24. Reviewed labs with pt. Mild anemia. Triglycerides 44. TC 150. LDL 74. HDL 68. He is on artovastatin 40mg. Blood pressure today 145/65, 48p. He is on metoprolol 25mg b.i.d. REPLACED BY [facility] Medical History (Updated 07/28/24 @ 09:33 by Chao Hicks) Screening for prostate cancer Screening for colon cancer Adult general medical exam Emphysema of lung Encounter for monitoring flecainide therapy Smoker History of atrial fibrillation Laboratory exam ordered as part of routine general medical examination PAF (paroxysmal atrial fibrillation) Hyperlipidemia History of cancer of right breast Personal history of nicotine dependence Surgical History History of cardioversion H/O colonoscopy History of right mastectomy History of total right hip arthroplasty History of back surgery Family History Paternal Grandfather Heart attack Mother Alzheimer disease Father Cancer Social History Housing: House Are you a primary resident caregiver to a significant other at home: No Do you presently have visiting nurse or other home services: No Alcohol intake: current Alcohol intake frequency: 0-2 drinks per day Comment: social Patient Tobacco Use Status: Current everyday Tobacco user Tobacco use type: Cigarette Cigarette Packs Per Day: 1 Cigarettes Per Day: 20.0 Years Smoked: onset 13, 1ppd x 63yrs, 60PYH e-Cigarette/Vaping Use: Never Used service: Yes Current occupational status: retired Cognitive needs: No Hearing needs: No Vision needs: Yes (wears glasses) Questionnaire PHQ-9 Over the last 2 weeks, how often have you been bothered by any of the following problems? 1. Little interest or pleasure in doing things: not at all 2. Feeling down, depressed, or hopeless: not at all 3. Trouble falling or staying asleep, or sleeping too much: not at all 4. Feeling tired or having little energy: not at all 5. Poor appetite or overeating: not at all 6. Feeling bad about yourself - or that you are a failure or have let yourself or your family down: not at all 7. Trouble concentrating on things, such as reading the newspaper or watching television: not at all 8. Moving or speaking so slowly that other people could have noticed. Or the opposite - being so fidgety or restless that you have been moving around a lot more than usual: not at all 9. Thoughts that you would be better off or of hurting yourself in some way: not at all Total score: 0 Source: Developed by Drs. Daniel St, Irasema Rios, Henry Soria and colleagues, with an educational mercedez from [employer]. Thrive Questionnaire Date Thrive assessed: 07/28/24 I am a: Patient What is your living situation today?: I have a steady place to live Within the past 12 months, did the food you bought not last and you didn't have the money to get more?: Never true Within the past 12 months, did you worry whether your food would run out before you got money to buy more?: Never true Do you have trouble paying for medicines?: Yes Do you have trouble getting transportation to medical appointments?: No Do you have trouble paying your heating and electricity bill?: No Do you have trouble taking care of your child, family member or friend?: No Do you have trouble with day-to-day activities such as bathing, preparing meals, shopping, managing finances, etc.?: No Are you currently unemployed and looking for a job?: No Are you interested in more education?: No Please select the resources that you would like help with: Paying for medicine Currently or been in a relationship where the following occur: No concerns reported THRIVE Score: 0 AUDIT C Alcohol Use Questionnaire (AUDIT-C) 1. How often do you have a drink containing alcohol?: 4 or more times a week 2. How many drinks containing alcohol do you have on a typical day when you are drinking?: 1 or 2 3. How often do you have six or more drinks on one occasion?: Never Total Score: 4 NANCY-7 AMB Questionnaire NANCY-7 Date NANCY - 7 assessed: 07/28/24 Feeling nervous, anxious, or on edge: 0 = Not at all Not being able to stop or control worryin = Not at all Worrying too much about different things: 0 = Not at all Trouble relaxin = Not at all Being so restless that it is hard to sit still: 0 = Not at all Becoming easily annoyed or irritable: 0 = Not at all Feeling afraid as if something awful might happen: 0 = Not at all Total NANCY-7 score (0-4 normal; 5-9 mild; 10-14 moderate; 15-21 severe): 0 Source: Developed by Drs. Daniel St, Irasema Rios, Henry Soria and colleagues, with an educational mercedez from [employer]. NANCY-7 Assessment Billing NANCY-7 Assessment Tool: NANCY-7 Assessment 64470 Review of Systems Const Denies chills, Denies fatigue, Denies fever(s), Denies headache(s) and Denies weakness Eyes Denies change in vision ENT Denies dizziness, Denies headache(s), Denies hearing loss, Denies nasal congestion, Denies sinus pain, Denies sinus pressure and Denies sore throat Card Denies chest pain, Denies lightheadedness, Denies dyspnea and Denies other (palpitations) Resp Denies cough, Denies dyspnea and Denies wheezing GI Denies abdominal pain, Denies melena, Denies hematochezia, Denies change in bowel habits, Denies dyspepsia and Denies nausea Denies hematuria and Denies dysuria Musc Denies abnormal gait, Denies myalgias, Denies arthralgias, Denies numbness and Denies tingling Skin/Breast Denies rash, Denies unusual bruising and Denies wounds Neuro Denies abnormal gait, Denies dizziness, Denies headache(s), Denies memory loss, Denies numbness, Denies Sensory deficit (Neuro), Denies tingling and Denies weakness Psych Denies anxiety, Denies depression and Denies memory loss Endo Denies cold intolerance, Denies fatigue, Denies heat intolerance, Denies polydipsia and Denies polyuria Edmundo/Lymph Denies easy bleeding and Denies easy bruising Aller/Immun Denies wheezing Physical exam (Primary Care) Vital Signs: Last Vital Signs Temp 97.3 F 07/28/24 09:20 Pulse 48 L 07/28/24 09:20 Resp 16 07/28/24 09:20 BP 145/65 H 07/28/24 09:20 Pulse Ox 98 07/28/24 09:20 Oxygen Delivery Method Room Air 07/28/24 09:20 BMI result Body Mass Index 26.5 Tobacco/Smoking Status: Tobacco use Status Tobacco use date assessed 12/10/23 07/28/24 09:24 Patient Tobacco Use Status Current everyday Tobacco 07/28/24 09:24 Tobacco use type Cigarette 07/28/24 09:24 e-Cigarette/Vaping Use Never Used 07/28/24 09:24 PHQ-9: PHQ-9 Score PHQ-9: Total score 0 07/28/24 09:33 Thrive Assessment: Date of Thrive Assessment Date Thrive assessed 07/28/24 07/28/24 09:24 Currently or been in a relationship where the following occur: No concerns reported Const General: no acute distress, well developed, alert and awake Nutritional Appearance: well nourished Orientation/consciousness: patient oriented x3 HENMT Head: Yes normocephalic and Yes atraumatic Ears: hearing grossly normal bilaterally and TM's normal bilaterally General nose exam: Normal external nose present and Normal nares present Mouth: Normal oral and palatal mucosa present and moist mucous membranes Teeth and gingiva: dentition normal Throat: Yes posterior oropharynx normal Eyes General: appearance normal, both eyes and all related structures Pupils: Equal, round and reactive pupils present and Pupil accommodation reflex normal EOM: EOMs intact bilaterally Neck Neck: Yes normal visual inspection, Yes no lymphadenopathy and Yes trachea midline Thyroid: Thyroid normal Carotids: no bruits Lymphatic: no lymphadenopathy noted Chest Chest palpation & inspection: normal inspection of the chest Resp Effort & Inspection: normal respiratory effort Auscultation: clear to auscultation bilaterally Cardio Rate: regular rate Rhythm: regular rhythm Heart sounds: S1 normal heart sound present, S2 normal heart sound present, no gallops, no murmurs and no rubs Bruits: no abdominal aortic bruits and no carotid bruits GI Palpation (GI): No Abdominal aortic bruit present, Soft to palpation, nontender, No hepatosplenomegaly present and No Rebound tenderness present Auscultation: normal bowel sounds General: Yes no CVA tenderness Back/Spine/Pelvis Back: no CVA tenderness Cervical Spine: cervical ROM normal and No Cervical spine tenderness Thoracic/Lumbar Spine: thoraco-lumbar ROM normal, No pain with thoraco-lumbar ROM, No thoracic spinal tenderness and No lumbar spinal tenderness Skin Lesions: no lesions Rashes: no rashes Trauma: no lacerations or abrasions Wounds: no wounds Nails: normal Neuro General: patient oriented x3 Cranial nerves: Yes Equal, round and reactive pupils present Cognition (Neuro): normal cognition Gait exam (Neuro): Normal gait present Motor exam (neuro): 5/5 motor strength present throughout Sensory Exam: No Sensory deficit (Neuro) Deep tendon reflexes (DTR's): Right patellar reflex intensity grade: 2+ and Left patellar reflex intensity grade: 2+ Extrem General: Yes normal to inspection and No edema Psych Appearance: grossly normal Affect: normal affect Attitude: cooperative Thought process: Normal thought process present Coding Level of Care Code Est Pt Level 4 (10526) Diagnoses Hypertension I10 Atherosclerotic cardiovascular disease I25.10 PAF (paroxysmal atrial fibrillation) I48.0 Hyperlipidemia E78.5 Screening for prostate cancer Z12.5 Tubular adenoma of colon D12.6 Screening for colon cancer Z12.11 Adult general medical exam Z00.00 Additional Codes NANCY-7 Assessment Billing - NANCY-7 Assessment Tool: NANCY-7 Assessment 35519 ([id number]) Assessment & Plan Assessment & Plan (1) Hypertension: Code(s): I10 - Essential (primary) hypertension Category: Medical Plan: Blood?pressure?is?elevated?today?for?patient?with?coronary?artery?disease Typically?well-controlled Continue?current?medication?regimen.??No?med?changes?today He?will?return?in?3?months?for?follow-up He?has?follow-up?with?Cardiology in?November (2) Atherosclerotic cardiovascular disease: Code(s): I25.10 - Atherosclerotic heart disease of [place] coronary artery without angina pectoris Category: Medical Plan: Currently?on?atorvastatin?40?mg?daily LDL?cholesterol?only?slightly?above?goal?at?74 Encouraged?diet?lower?in?saturated?fats?and?cholesterol Continue?atorvastatin?as?prescribed Follow-up?with?Cardiology (3) PAF (paroxysmal atrial fibrillation): Code(s): I48.0 - Paroxysmal atrial fibrillation Category: Medical Plan: Currently?on?amiodarone?as?well?as?metoprolol?and?rivaroxaban Stable. 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?as?gets?bruising?on?his?arms We?discussed?its?importance?and?patient?understands Continue?her?regimen Follow-up?with?Cardiology?as?recommended (4) Hyperlipidemia: Code(s): E78.5 - Hyperlipidemia, unspecified Category: Medical Plan: As?above,?continue?atorvastatin?40?mg?daily?and?we?are?going?to?diet?lower?in?saturated?fats?cholesterol (5) Screening for prostate cancer: Code(s): Z12.5 - Encounter for screening for malignant neoplasm of prostate Category: Medical Plan: PSA?is?within normal?limits Continue?screening?annually (6) Tubular adenoma of colon: Comment: 04/2024 scope =multiple TA is repeat in 1 year - He says I want a 2 year recall, and even then I'll be 81 and I'll probably say No and take my chances. Code(s): D12.6 - Benign neoplasm of colon, unspecified Category: Medical Plan: Gastroenterology?is?recommending?a?1-2?year?follow-up Patient?did?not?want?to?have?further?follow-up?as?he?did?think?polyps?could?be?harmful We?discussed?polyps?can?become?more?dysplastic?in?eventually?become?colon?cancers.??Says?may?reconsider Follow-up?to?discuss?with?Gastroenterology?as?recommended (7) Screening for colon cancer: Code(s): Z12.11 - Encounter for screening for malignant neoplasm of colon Category: Medical Plan: As?above (8) Adult general medical exam: Code(s): Z00.00 - Encounter for general adult medical examination without abnormal findings Category: Medical Plan: 78-year-old?male?presents?for?an?extended?exam Encouraged?healthy?diet?with?active?lifestyle?and?plenty?of?exercise
[2024-07-28 09:20] VITALS: BP 145/65; PULSE 48; RESP 16; TEMP 36.3; O2SAT 98; BMI 26.5
== END 2024-07-28 10:02 | disposition home or self-care (01) ==
PROVIDERS: PCP Family Medicine; Visit Provider Family Medicine
DX: I10 Essential (primary) hypertension (principal); I25.10 Atherosclerotic heart disease of native coronary artery without angina pectoris; I48.0 Paroxysmal atrial fibrillation; E78.5 Hyperlipidemia, unspecified; Z12.5 Encounter for screening for malignant neoplasm of prostate; D12.6 Benign neoplasm of colon, unspecified; Z12.11 Encounter for screening for malignant neoplasm of colon; Z00.00 Encounter for general adult medical examination without abnormal findings

== ENCOUNTER → 2024-07-28 08:45 | Outpatient (BNVA) | payer MEDICARE, SELFPAY | PROVIDERS: PCP Family Medicine; Visit Provider Family Medicine | DX: I10 Essential (primary) hypertension (principal); I25.10 Atherosclerotic heart disease of native coronary artery without angina pectoris; I48.0 Paroxysmal atrial fibrillation; E78.5 Hyperlipidemia, unspecified; D12.6 Benign neoplasm of colon, unspecified | CPT/HCPCS: 96127; 99212 ==

== ENCOUNTER 2024-09-02 12:51 | Outpatient (AMB) | payer MEDICARE, SELFPAY ==
--- NOTE | 2024-09-02 13:05 | A.OFFPC_ITS ---
Vital Signs 09/02/24 13:07 Height 5 ft 11 in Weight 194 lb 4 oz BMI 27.1 BP 130/70 Blood Pressure Location Rt brachial Position Sitting Respiration 16 Pulse 76 Pulse Source Palpation Temp 98.6 F Temp Source Oral Intake Visit Reasons: left eye cataracts surgery in Sep. Intake Note: pre-op for cataracts surgery Allergies No Known Allergies Allergy (Verified 09/02/24 13:05) Medication List - Last Reconciled 09/02/24 by Wilfred Haile MD amiodarone 200 mg PO DAILY atorvastatin 40 mg PO QPM metoprolol tartrate 25 mg PO BID rivaroxaban 20 mg PO DAILY 90 days Tobacco use date assessed: 12/10/23 Dental Screening Dental Screen Date: 12/10/23 HPI left eye cataracts surgery in Sep. HPI Details Patient presents for preoperative clearance prior to Cataract Surgery Procedure: L Cataract surgery Date:? September 17, 2024 Surgeon: Dr Jeremiah Marx Anesthesia: Local & Sedation Cardiac Hx: ?Coronary?artery?disease?and?paroxysmal?atrial?fibrillation. Pulmonary Hx: COPD Prior Surgical Complications:none Prior Anesthesia Complications: none Coag issues: On rivaroxaban Functional [place]: Patient?is?able?to?walk 1/4 to 1/2 mi?without?stopping. HPI Comments History of Present Illness Details Documentation assistance for Wilfred Haile MD, was provided by Chao Hicks,? Director Of Housing And [employer] Services on 09/02/2024 at 1:34 PM EST. I, Dr. Haile, have read, observed, and verified documentation. ?? PFS Medical History (Updated 09/02/24 @ 13:34 by Chao Hicks) Screening for prostate cancer Screening for colon cancer Adult general medical exam Emphysema of lung Encounter for monitoring flecainide therapy Smoker History of atrial fibrillation Laboratory exam ordered as part of routine general medical examination PAF (paroxysmal atrial fibrillation) Hyperlipidemia History of cancer of right breast Personal history of nicotine dependence Surgical History History of cardioversion H/O colonoscopy History of right mastectomy History of total right hip arthroplasty History of back surgery Family History Paternal Grandfather Heart attack Mother Alzheimer disease Father Cancer Social History Housing: House Are you a primary childcare center director to a significant other at home: No Do you presently have visiting nurse or other home services: No Alcohol intake: current Alcohol intake frequency: 0-2 drinks per day Comment: social Patient Tobacco Use Status: Current everyday Tobacco user Tobacco use type: Cigarette Cigarette Packs Per Day: 1 Cigarettes Per Day: 20.0 Years Smoked: onset 13, 1ppd x 63yrs, 60PYH e-Cigarette/Vaping Use: Never Used service: Yes Current occupational status: retired Cognitive needs: No Hearing needs: No Vision needs: Yes (wears glasses) Questionnaire Thrive Questionnaire Date Thrive assessed: 07/28/24 I am a: Patient What is your living situation today?: I have a steady place to live Within the past 12 months, did the food you bought not last and you didn't have the money to get more?: Never true Within the past 12 months, did you worry whether your food would run out before you got money to buy more?: Never true Do you have trouble paying for medicines?: Yes Do you have trouble getting transportation to medical appointments?: No Do you have trouble paying your heating and electricity bill?: No Do you have trouble taking care of your child, family member or friend?: No Do you have trouble with day-to-day activities such as bathing, preparing meals, shopping, managing finances, etc.?: No Are you currently unemployed and looking for a job?: No Are you interested in more education?: No Please select the resources that you would like help with: Paying for medicine Currently or been in a relationship where the following occur: No concerns reported THRIVE Score: 0 NANCY-7 AMB Questionnaire NANCY-7 Date NANCY - 7 assessed: 07/28/24 Source: Developed by Drs. Daniel St, Irasema Rios, Henry Soria and colleagues, with an educational mercedez from [employer]. Review of Systems Const Denies chills, Denies fatigue, Denies fever(s), Denies headache(s) and Denies weakness ENT Denies dizziness and Denies headache(s) Card Denies chest pain, Denies lightheadedness, Denies dyspnea and Denies other (Palpitations) Resp Denies cough, Denies dyspnea, Denies wheezing and Denies other ( shortness of breath) Musc Denies numbness and Denies tingling Neuro Denies dizziness, Denies headache(s), Denies numbness, Denies tingling, Denies paresthesias and Denies weakness Psych Denies anxiety and Denies depression Endo Denies fatigue Aller/Immun Denies wheezing Physical exam (Primary Care) Vital Signs: Last Vital Signs Temp 98.6 F 09/02/24 13:07 Pulse 76 09/02/24 13:07 Resp 16 09/02/24 13:07 BP 130/70 09/02/24 13:07 BMI result Body Mass Index 27.1 Tobacco/Smoking Status: Tobacco use Status Tobacco use date assessed 12/10/23 09/02/24 13:14 Patient Tobacco Use Status Current everyday Tobacco 09/02/24 13:14 Tobacco use type Cigarette 09/02/24 13:14 e-Cigarette/Vaping Use Never Used 09/02/24 13:14 Thrive Assessment: Date of Thrive Assessment Date Thrive assessed 07/28/24 09/02/24 13:14 Currently or been in a relationship where the following occur: No concerns r eported Const General: no acute distress and well developed Nutritional Appearance: well nourished Orientation/consciousness: patient oriented x3 [facility] Head: Yes normocephalic and Yes atraumatic Eyes General: appearance normal, both eyes and all related structures Pupils: Equal, round and reactive pupils present EOM: EOMs intact bilaterally Resp Effort & Inspection: normal respiratory effort Auscultation: clear to auscultation bilaterally Cardio Rate: bradycardic Rhythm: regular rhythm Heart sounds: S1 normal heart sound present, S2 normal heart sound present, no gallops, no murmurs and no rubs Neuro General: patient oriented x3 and gait normal Cranial nerves: Yes Equal, round and reactive pupils present Psych Affect: normal affect Coding Level of Care Code Est Pt Level 3 (30817) Diagnoses Pre-operative clearance Z01.818 Assessment & Plan Assessment & Plan (1) Pre-operative clearance: Code(s): Z01.818 - Encounter for other preprocedural examination Category: Medical Plan: He?presents?for?preoperative?clearance?prior?to?left?eye?cataract?surgery History?of?coronary?artery?disease?and?paroxysmal?atrial?fibrillation.??He?is?on ?amiodarone?and?metoprolol?for?rhythm?and?rate?control. He?is?on?atorvastatin?for?CAD. Also?taking?rivaroxaban?for?paroxysmal?atrial?fibrillation. Cardiac?exam?today?reveals?regular?rhythm?and?mildly?bradycardic?rate. EKG?shows?sinus?bradycardia,?46?b eats?per?minute,?left?axis?deviation,?no?hypertrophy,?nonspecific?T- wave?changes. No?significant?changes?from?prior?EKGs. Patient?has?mild?COPD?and?is?a?current?smoker.??Does?not?require?medications. No?prior?complications?with?surgeries?or?anesthesia. No?clotting?disorders?or?bleeding?disorders?but?patient?is?on?rivaroxaban Functional?reserve: ?Good/fair Intermediate?risk?patient?for?low?risk?procedure?and?patient?is?optimized. ?no?contraindications?to?proceeding?with?proposed?procedure
[2024-09-02 13:07] VITALS: BP 130/70; PULSE 76; RESP 16; TEMP 37; BMI 27.1
== END 2024-09-02 13:47 | disposition home or self-care (01) ==
PROVIDERS: PCP Family Medicine; Visit Provider Family Medicine
DX: Z01.818 Encounter for other preprocedural examination (principal)

== ENCOUNTER → 2024-09-02 12:51 | Outpatient (BNVA) | payer MEDICARE, SELFPAY | PROVIDERS: PCP Family Medicine; Visit Provider Family Medicine | DX: Z01.818 Encounter for other preprocedural examination (principal); H26.9 Unspecified cataract; I10 Essential (primary) hypertension; E78.5 Hyperlipidemia, unspecified | CPT/HCPCS: 99212 ==

== ENCOUNTER 2024-11-02 10:11 | Outpatient (REF) | payer MEDICARE, SELFPAY ==
--- OUTSIDE RECORDS SUMMARY | 2024-11-02 12:21 | XMS_ITS | Referral Summary ---
Author Organization [facility] Address [address] [place] [address] Care Team Providers Care Wholesale And Retail Merchant Name Role Phone Wilfred Haile MD Primary Care Provider Allergies No known active allergies Medications simvastatin (ZOCOR) 20 mg tabletIndications:H yperlipidemia, unspecified hyperlipidemia type TAKE 1 TABLET BY MOUTH EVERYDAY AT BEDTIME 90 tablet 3 0 Active flecainide (TAMBOCOR) 100 mg tablet Take 1 tablet (100 mg total) by mouth 2 times a day. 180 tablet 3 3 Active Active Problems Problem Noted Date Diagnosed Date Prostate nodule 07/01/2018 Overview (12/31/2020): 06/2018. SUNITHA: Left lower pole fullness and possible nodularity. + PSA: 1.1. ++ 12/2020. SUNITHA: Declined. Screening for prostate cancer 06/24/2018 Colon cancer screening 06/25/2017 Overview (12/31/2020): 04/2007. Colon: Normal. ++ F/U Colon 2017: ++ 12/2020. Colon: Declined. Routine medical exam 06/25/2017 Pulmonary nodules 06/14/2015 Overview (12/31/2020): 07/29/2015. + CT Chest: + 2 mm Nodules x 3. NO Additional concerns. ++ F/U CT Chest needed in 1 Year. Because of the cough the patient will stop the lisinopril and switch to losartan 100 mgs po qhs. That may help the cough. Has to stop the tobacco abuse. ++ 09/2016. + CT Chest: Pulmonary nodules measuring up to 2 mm are unchanged since 07/26/2015, and for which no further followup is required per Fleischner society recommendations . DONE. ++ 12/2020. Lung Cancer screening: Declined. Decreased libido 07/21/2014 Overview (05/01/2020): 08/2014. Testosterone level 700+. Likely related to depression, Breast CA 05/15/2014 Overview (07/05/2020): ++ 04/2014. RIGHT. Infiltrative Ductal Carcinoma. All oncologic care done at [facility]. Dr. Peters. ++ 06/2020. [facility]. Tamoxifen Completed. Mammograms have not been shown to improve detection and are purely up to the patient if desired(Patient declined). No Oncologic F/U Planned as patient considered cured. Hypertension 03/23/2013 Overview (06/25/2017): Well Controlled. Spinal stenosis 07/09/2011 Overview (05/26/2017): 07/2011. Patient has nagging paresthesias of the Bilateral feet. MRI: SEVERE spinal stenosis at several levels. As examination is normal and there is no weakness- WILL NOT PURSUE SURGICAL CONSULT. If sx increase or weakness occurs will need neurosurgery. ++ 02/2013. MRI with foraminal issues at L2-3 and SEVERE Stenosis at L4-5. ++ 04/2013. [facility]. Spinal Stenosis. Excellent Result. ++ 03/2014. Excellent Result. ++ 06/2016. Still Doing Well. Peripheral neuropathy 05/08/2011 Overview (06/24/2018): Related to Severe Spinal Stenosis / B12 Deficiency. Arteriosclerotic cardiovascular disease (ASCVD) 12/06/2010 Overview (05/26/2017): 11/2010. CAD noted by [facility] EST(fixed defect inferiorly). ECHO implies inferior hypokinesis also. NO Sx. Cardiomyopathy 08/05/2010 Overview (07/04/2019): 07/2010. EF: 30-35%. Diffuse dysfunction. All thought to be related to rapid afib. Cardioversion 07/26/2010. ++ 09/2010. [facility] study: EF 59% with IMI noted. ++ 10/2010. EF 50-55%. LVH 12 mm. ++ 12/2014. ECHO([facility]): EF 55%. Excellent. Osteoarthritis of hip 06/11/2010 Overview (07/04/2019): 2009. The right hip is the worst and most clinically troublesome. The left is also moderately arthritic but scant clinical Sx. ++ 09/2018. Endstage OA RIGHT. THR Needed. Dr. Zamarripa requested. +01/2019. Dr. Cal Barnes. [facility]. RIGHT THR. Vitamin B12 deficiency 06/11/2010 Overview (12/31/2020): 06/2010. B12 214. Follow periodically. B12 100 ug 2 daily. ++ 12/2014. B12: 273. ++ 06/2017. B12: 198. Will need IM Injections. Chart review. Only received 2 injections. +06/2018. B12: 165. ++ 12/2018. B12: 251 on B12 1000 ugms IM monthly. Make sure the patient is compliant. +06/2019. B12: 227. REVIEW IM DOSING. +12/2020. B12: 372. Hyperlipidemia 06/11/2010 Overview (05/01/2020): 2008. LDL 170. Rx diet. ++ 05/2010. LDL to 121 with diet alone. No statins begun. ++ 03/2013. LDL 164. Likely will need statin. ++ 09/2013. Zocor 20 mgs qhs begun. Atrial fibrillation 06/11/2010 Overview (05/01/2020): ++ 05/2010. Routine OV. Afib noted. . Dx: CHF. BNP elevated. ++ 07/2010. Dr. Beck: Cardioversion. ECHO: EF 20-30% ?? Rate related. ++ 09/2010. [facility]: EF 59%. PAF persists. Ischemia inferiorly. ECHO: Inferior hypokinesis. Likely old RCA lesion. ++ 12/2014. PAF. EPS Attending at the [facility]. Dr. Guzmán. Cardioversion. NSR. Assessment & Plan (03/18/2022 2:24 PM EDT): Continue with his flecainide. I will see him back in 12 months sooner if needed. Assessment & Plan (01/31/2020 9:52 AM EDT): Continue with his flecainide. I will see him back in 12 months sooner if needed. Assessment & Plan (01/20/2019 9:57 AM EDT): Continue with his flecainide. I will see him back in 12 months sooner if needed. Assessment & Plan (08/04/2017 9:26 AM EST): Continue with his flecainide. I will see him back in 6 months sooner if needed. Resolved Problems Problem Noted Date Diagnosed Date Resolved Date Sciatica 12/24/2016 05/01/2020 Overview (05/26/2017): 12/2016. RIGHT. Exam: Normal. Chronic renal failure 06/22/20162016 Overview (06/25/2017): 06/22/2016. + Creatinine 1.19(Baseline 1.0). + U/A: Normal. On F/U in 6 months tell patient he will need a basic profile to address slightly increased creatinine value. ++ 12/2016. Creatinine 1.12. ++ 06/2017. Creatinine 1.05. Baseline. DONE. Shingles 12/26/2014 06/25/2017 Immunizations Immunization Administration Dates Next Due Influenza, Injectable, Quadr ivalent, Contains Preservative 06/25/2017(Deferred: Patient Refused) Social History Tobacco Use Types Packs/Day Years Used Date Smoking Tobacco: Every Day Cigarettes Smokeless Tobacco: Former Comments::PER . ++ 4. CURRENT 1 PPD SMOKER. Sex and Gender Information Value Date Recorded Sex Assigned at Not on file Legal Sex Male 2:29 AM EDT Gender Identity Not on file Sexual Orientation Not on file Last Filed Vital Signs Vital Sign Reading Time Taken Comments Blood Pressure 128/80 03/18/2022 1:48 PM EDT Pulse 76 03/18/2022 1:48 PM EDT Temperature 36.7 ??C (98.1 ??F) 12/31/2020 1:03 PM ED T Respiratory Rate 20 03/18/2022 1:48 PM EDT Oxygen Saturation 99% 03/18/2022 1:48 PM EDT Inhaled Oxygen Concentration - - Weight 81.9 kg (180 lb 9.6 oz) 03/18/2022 1:48 P M EDT Height 177.8 cm (5' 10 ) 03/18/2022 1:48 PM EDT Body Mass Index 25.91 03/18/2022 1:48 PM EDT Plan of Treatment Not on file Procedures * Due to [place] InVisM law, this organization might not be sharing negative HIV tests. Procedure Name Priority Date/Time Associated Diagnosis Comments BASIC METABOLIC PANEL Routine 12/31/2020 1:[address] CHEST WO CONTRAST Routine 09/26/2016 11:29 AM EST from Last 3 Months or Most Recently Relevant to Health Maintenance Results * Due to [place] InVisM law, this organization might not be sharing negative HIV tests. * Basic Metabolic Panel (12/31/2020 1:30 PM EDT) Glucose 81 65 - 139 mg/dL 12/31/2020 10:10 PM EDT [employer] Comment: ? Non-fasting reference interval BUN 15 7 - 25 mg/dL 12/31/2020 10:10 PM EDT [employer] Creatinine 1.12 0.70 - 1.18 mg/dL 12/31/2020 10:10 PM EDT [employer] Comment: For patients >49 years of age, the reference limit for Creatinine is approximately 13% higher for people identified as -[place]. eGFR Non- 63 > OR = 60 mL/min/1 .73m2 12/31/2020 10:10 PM EDT [employer] eGFR 73 > OR = 60 mL/min/1 .73m2 12/31/2020 10:10 PM EDT [facility] [facility] Bun/Creatinine Ratio NOT APPLICABLE 6 - (calc) 12/31/2020 10:10 PM EDT [facility] [facility] Sodium 137 135 - 146 mmol/L 12/31/2020 10:10 PM EDT [facility] [facility] Potassium 4.0 3.5 - 5.3 mmol/L 12/31/2020 10:10 PM EDT [facility] [facility] Chloride 102 98 - 110 mmol/L 12/31/2020 10:10 PM EDT [facility] [facility] Carbon Dioxide 27 20 - 32 mmol/L 12/31/2020 10:10 PM EDT [facility] Calcium 9.2 8.6 - 10.3 mg/dL 12/31/2020 10:10 PM EDT [facility] [facility] Blood Structure of peripheral vein / Unknown 12/31/2020 1:30 PM EDT 12/31/2020 9:09 PM EDT Narrative [facility] - 12/31/2020 11:11 PM EDT FASTING:NO us Ranjit Lainez MD LAB BLOOD ORDERABLES Fin al Result [facility] [address] [facility] [address], [place] [address], [employer] [facility] [address] [place] [address] * CT Chest WO Contrast (09/26/2016 11:29 AM EST) Anatomical Region Laterality Modality Body Computed Tomogra phy 09/26/2016 11:2 0 AM EST Impressions 09/29/2016 1:12 PM EST Pulmonary nodules measuring up to 2 mm are unchanged since 07/26/2015, and for which no further followup is required per Fleischner society recommendations. Under the Fleischner Society 2005 recommendations; a nodule size of 4 mm or less in a low risk patient (no smoking history and normal immune system) no followup is needed. In a high risk patient (smoking history or other risk factor for lung cancer) a 12 month followup is recommended. Then, if there is no change in the nodule(s), no further follow up is required. ATTESTATION: I have personally reviewed the films and agree with the resident's interpretation. WSN: [id number] Narrative 09/29/2016 1:12 PM EST EXAMINATION: Chest CT without contrast, low dose technique. CLINICAL INDICATION: Followup 2 mm nodule seen on chest CT of 08/05/2015. TECHNIQUE: ??CT chest without contrast - low dose protocol. ??Helical CT was performed of the chest (lung apices to bases) without intravenous contrast. Multiplanar and MIP reconstructions were generated. COMPARISON: CT chest 07/26/2015. FINDINGS: Lungs: Mild biapical emphysema. There are bilateral calcified granulomas. Noncalcified pulmonary nodules are identified on series 4 listed below. Right upper lobe: 2 mm image 74. Left upper lobe: 2 mm image 53. Left lower lobe: 2 mm image 162 These are all unchanged since 07/26/2015. Airway: The proximal airways are patent. Pleura: No pleural effusion, thickening or pneumothorax. Thoracic aorta and great vessels: ??The thoracic aorta is normal in caliber with mild atherosclerotic calcifications. Pulmonary arteries: Unremarkable. Heart and pericardium: The heart is normal in size without pericardial effusion. There are mild coronary artery calcifications. Lymph nodes: No enlarged thoracic lymph nodes. Lower neck/mediastinum: Unremarkable. Thoracic spine and chest wall: The thoracic vertebrae are normally aligned with normal vertebral body heights. There are no focal osseous lesions. ??There are mild degenerative changes with anterior osteophytes. Visualized upper abdomen: Unremarkable. Procedure Note Stewart Beth - 05/06/2017 EXAMINATION: Chest CT without contrast, low dose technique. CLINICAL INDICATION: Followup 2 mm nodule seen on chest CT of 08/05/2015. TECHNIQUE: CT chest without contrast - low dose protocol. Helical CT was performed of the chest (lung apices to bases) without intravenous contrast. Multiplanar and MIP reconstructions were generated. COMPARISON: CT chest 07/26/2015. FINDINGS: Lungs: Mild biapical emphysema. There are bilateral calcified granulomas. Noncalcified pulmonary nodules are identified on series 4 listed below. Right upper lobe: 2 mm image 74. Left upper lobe: 2 mm image 53. Left lower lobe: 2 mm image 162 These are all unchanged since 07/26/2015. Airway: The proximal airways are patent. Pleura: No pleural effusion, thickening or pneumothorax. Thoracic aorta and great vessels: The thoracic aorta is normal in caliber with mild atherosclerotic calcifications. Pulmonary arteries: Unremarkable. Heart and pericardium: The heart is normal in size without pericardial effusion. There are mild coronary artery calcifications. Lymph nodes: No enlarged thoracic lymph nodes. Lower neck/mediastinum: Unremarkable. Thoracic spine and chest wall: The thoracic vertebrae are normally aligned with normal vertebral body heights. There are no focal osseous lesions. There are mild degenerative changes with anterior osteophytes. Visualized upper abdomen: Unremarkable. IMPRESSION: Pulmonary nodules measuring up to 2 mm are unchanged since 07/26/2015, and for which no further followup is required per Fleischner society recommendations. Under the Fleischner Society 2005 recommendations; a nodule size of 4 mm or less in a low risk patient (no smoking history and normal immune system) no followup is needed. In a high risk patient (smoking history or other risk factor for lung cancer) a 12 month followup is recommended. Then, if there is no change in the nodule(s), no further follow up is required. ATTESTATION: I have personally reviewed the films and agree with the resident's interpretation. 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
--- OUTSIDE RECORDS SUMMARY | 2024-11-02 12:21 | XMS_ITS | Clinical Summary ---
Author Organization [facility] Address [address] [place] [address] Care Team Providers Care Sonar Technician Name Role Phone Wilfred Haile MD Primary Care Provider [phone] Allergies No known active allergies Medications simvastatin [...] Ductal Carcinoma. All oncologic care done at [facility] Cancer center. Dr. Peters. ++ 06/2020. [facility] Oncology. Tamoxifen Completed. Mammograms have not been [...] and SEVERE Stenosis at L4-5. ++ 04/2013. [facility]. Spinal Stenosis. Excellent Result. ++ [...] EF 50-55%. LVH 12 mm. ++ 12/2014. ECHO([place]): EF 55%. Excellent. Osteoarthritis of hip 06/11/2010 Overview (07/04/2019): 2009. The right hip is the worst and most clinically troublesome. The left is also moderately arthritic but scant clinical Sx. ++ 09/2018. Endstage OA RIGHT. THR Needed. Dr. Zamarripa requested. +01/2019. Dr. Cal Barnes. [facility]. RIGHT THR. Vitamin B12 deficiency 06/11/2010 Overview [...] ++ 12/2014. PAF. EPS Attending at the [facility]. Dr. Guzmán. Cardioversion. NSR. Assessment & Plan [...] Quadr ivalent, Contains Preservative 06/25/2017(Deferred: Patient Refused) Family History Medical History Relation Name Comments Other Brother Family History of cardiac disorder Other Father Family History of malignant neoplasm Other Mother Family History of Alzheimer's disease Relation Name Status Comments Brother Father Mother Social History Tobacco Use Types Packs/Day Years [...] 03/18/2022 1:48 PM EDT Plan of Treatment Health Maintenance Due Date Last Done Comments Pneumococcal Vaccine: 50+ Years (1 of 2 - PCV) 1962 Zoster Vaccines (1 of 2) 1962 DTaP,Tdap,and Td Vaccines (1 - Tdap) 1965 RSV Vaccine (60+ years old and patients) (1 - 1-dose 75+ series) 2018 COVID-19 Vaccine (2 - Marilee risk series) 02/07/2021 01/10/2021 Basic Metabolic Panel 12/31/2021 12/31/2020 , 12/24/2020, 06/28/2019, Additional history exists Influenza Vaccine (#1) 2024 Alcohol/Substance Use Screening 09/07/2024 Depression Screening and Follow-Up 09/07/2024 Health Care Proxy Review 09/07/2024 Social Drivers of Health Annual Screening 09/07/2024 CT Lung Cancer Screening (12 months, previous LungRADS 1 or 2) Discontinued 09/26/2016, 07/26/2015 Hepatitis B Vaccines Aged Out No long er eligible based on patient's age to complete this topic Procedures * Due to [place] state law, this organization might not be sharing negative HIV tests. Procedure Name Priority Date/Time Associated Diagnosis Comments BASIC METABOLIC PANEL Routine 12/31/2020 1:[address] CHEST WO CONTRAST Routine 09/26/2016 11:29 AM EST from Last 3 Months or Most Recently Relevant to Health Maintenance Results * Due to [place] state law, this organization might not be sharing negative HIV tests. * Basic Metabolic Panel (12/31/2020 1:30 PM EDT) Glucose 81 65 - 139 mg/dL 12/31/2020 10:10 PM [employer] Comment: ? Non-fasting reference interval BUN 15 7 - 25 mg/dL 12/31/2020 10:10 PM [employer] Creatinine 1.12 0.70 - 1.18 mg/dL 12/31/2020 10:10 PM [employer] Comment: For patients >49 years of age, the reference limit for Creatinine is approximately 13% higher for people identified as -Japanese. eGFR Non- 63 > OR = 60 mL/min/1 .73m2 12/31/2020 10:10 PM [employer] [facility] eGFR 73 > OR = 60 mL/min/1 .73m2 12/31/2020 10:10 PM [employer] [facility] Bun/Creatinine Ratio NOT APPLICABLE 6 - 22 (calc) 12/31/2020 10:10 PM [employer] [facility] Sodium 137 135 - 146 mmol/L 12/31/2020 10:10 PM [employer] [facility] Potassium 4.0 3.5 - 5.3 mmol/L 12/31/2020 10:10 PM [employer] Chloride 102 98 - 110 mmol/L 12/31/2020 10:10 PM [employer] Carbon Dioxide 27 20 - 32 mmol/L 12/31/2020 10:10 PM [employer] Calcium 9.2 8.6 - 10.3 mg/dL 12/31/2020 10:10 PM [employer] [facility] Blood Structure of peripheral vein / Unknown 12/31/2020 1:30 PM EDT 12/31/2020 9:09 PM EDT Narrative [facility] - 12/31/2020 11:11 PM EDT FASTING:NO us Ranjit Lainez MD LAB BLOOD ORDERABLES Fin al Result [facility] [address] [facility] 3rd Floor, [place] [address], [place] [phone] [facility] [address] [place] [address] * CT Chest WO Contrast (09/26/2016 11:29 [...] and agree with the resident's interpretation. WSN: [id number] Narrative 09/29/2016 1:12 PM EST EXAMINATION: Chest [...] and agree with the resident's interpretation. WSN: [id number] us Ranjit Lainez MD IMG CT PROCEDURES Final Result from Last 3 Months or Most Recently Relevant to Health Maintenance Insurance Advance Directives Documents on File Type Date Recorded Patient Insights Manager Expl anation Health Care Proxy 01/03/2019 11:59 AM 12/07 Health Care Proxy 07/12/2010 12:00 AM 01/2010 Care Teams Sonar Technician Relationship Specialty Start Date End Date Wilfred Haile MD [address] [place], [place] [id number] PCP - General Family Medicine 06/22/23
[2024-11-02 14:20] LABS: MANUAL DIFF FLAG NO
[2024-11-02 14:27] LABS: Appearance Urine Clear; Color Urine Yellow; Glucose Urine UA Negative (Negative); Leukocyte Esterase Urine Negative (Negative); Nitrite Urine Negative (Negative); Specific Gravity - Urine 1.015 (1.005-1.025); Urine Blood Negative (Negative); Urine Ketones Negative (Negative); Urine Protein Trace mg/dL (Neg-Trace)
[2024-11-02 14:30] LABS: Basophils Absolute Auto 0.1 X10*3/uL (0.0-0.2); Basophils Percent Auto 0.9 % (0-2); Eosinophils Absolute Auto 0.2 X10*3/uL (0.0-0.4); Eosinophils Percent Auto 1.5 % (0-4); Hematocrit 46.5 % (42.0-52.0); Hemoglobin 14.9 g/dl (14.0-18.0); Imm Gran Abs Auto 0.05 X10*3/uL (0.00-0.03); Imm Gran Pct Auto 0.4 % (0.0-0.4); Lymphocytes Absolute Auto 2.4 X10*3/uL (1.2-4.9); Lymphocytes Percent Auto 20.4 % (20-40); Mean Corpuscular Hemoglobin 31.4 pg (27.0-33.0); Mean Corpuscular Volume 98.1 fL (80.0-98.0); Monocytes Absolute Auto 0.8 X10*3/uL (0.1-1.2); Neutrophils Absolute Auto 8.4 x10*3/uL (2.0-8.3); Neutrophils Percent Auto 69.8 % (45-73); Platelet Count 245 X10*3/uL (160-400); Red Blood Count 4.74 X10*6/uL (4.60-5.80); Red Cell Distribution Width 15.3 % (11.0-16.0)
[2024-11-02 14:40] LABS: Alanine Aminotransferase 37 U/L (0-40); Albumin Level 4.2 g/dL (3.5-5.0); Alkaline Phosphatase 72 U/L (39-117); Anion Gap 12 (12-20); Aspartate Amino Transferase 54 U/L (5-37); Bilirubin Total 0.6 mg/dL (0.0-1.0); Blood Urea Nitrogen 16 mg/dL (9-16); Calcium 9.2 mg/dL (8.4-10.2); Carbon Dioxide 29 mmol/L (22-29); Chloride 102 mmol/L (96-108); Cholesterol 187 mg/dL (<200); Estimated Glomerular Filt Rate 58; Glucose Fasting 87 mg/dL (60-99); HDL Cholesterol 80 mg/dL (>40); LDL Cholesterol Calculated 94 mg/dL (<100); Potassium 4.9 mmol/L (3.3-5.1); Sodium 138 mmol/L (135-145); Total Protein 7.8 g/dL (6.5-8.0); Triglycerides 68 mg/dL (<150)
== END 2024-11-02 10:12 | disposition home or self-care (01) ==
LOC: HO.WFDLDS 10:11
PROVIDERS: Visit Provider Family Medicine
DX: Z00.00 Encounter for general adult medical examination without abnormal findings (principal)
CPT/HCPCS: 36415; 80053; 80061; 81003; 85025

== ENCOUNTER 2024-11-10 08:33 | Outpatient (AMB) | payer MEDICARE, SELFPAY ==
--- NOTE | 2024-11-10 08:49 | MHC.PC.OV ---
Vital Signs 11/10/24 08:55 Height 5 ft 11 in Weight 192 lb 2 oz BMI 26.8 BP 128/64 Blood Pressure Location Rt brachial Position Sitting Respiration 16 Pulse 53 Pulse Source Pulse Oximeter Temp 97.7 F Temp Source Oral Pulse Oximetry (%) 100 Oxygen Delivery Method Room Air Intake Visit Reasons: f/u htn, chronic conditons Intake Note: pt is here to follow up on HTN Outdoor Education Teacher Required: No Allergies No Known Allergies Allergy (Verified 11/10/24 08:53) Medication List - Last Reconciled 11/10/24 by Wilfred Haile MD amiodarone 200 mg PO DAILY atorvastatin 40 mg PO QPM metoprolol tartrate 25 mg PO BID rivaroxaban 20 mg PO DAILY 90 days Tobacco use date assessed: 12/10/23 Dental Screening Dental Screen Date: 12/10/23 HPI f/u htn, chronic conditons HPI Details 79 y/o male presents to f/u HTN, chronic conditions. Blood pressure today 128/64, 53p. He is on metoprolol 25mg b.i.d. Labs drawn 11/02/24. Elevated AST of 54. Triglycerides 68. TC 187. LDL 94. HDL 80. Would like a referral to dermatology for a neoplasm of skin of uncertain behavior. HPI Comments History of Present Illness Details Documentation assistance for jonathan Haile MD, was provided by Chao Hicks,? Industrial Furnace Fabricator on 11/10/2024 at 9:37 AM DANK. I, Dr. Haile, have read, observed, and verified documentation. ?? [facility] Medical History (Updated 11/10/24 @ 09:35 by Wilfred Haile MD) Screening for prostate cancer Screening for colon cancer Adult general medical exam Emphysema of lung Encounter for monitoring flecainide therapy Smoker History of atrial fibrillation Laboratory exam ordered as part of routine general medical examination PAF (paroxysmal atrial fibrillation) Hyperlipidemia History of cancer of right breast Personal history of nicotine dependence Surgical History History of cardioversion H/O colonoscopy History of right mastectomy History of total right hip arthroplasty History of back surgery Family History Paternal Grandfather Heart attack Mother Alzheimer disease Father Cancer Social History Housing: House Are you a primary direct care specialist to a significant other at home: No Do you presently have visiting nurse or other home services: No Alcohol intake: current Alcohol intake frequency: 0-2 drinks per day Comment: social Patient Tobacco Use Status: Current everyday Tobacco user Tobacco use type: Cigarette Cigarette Packs Per Day: 1 Cigarettes Per Day: 20.0 Years Smoked: onset 13, 1ppd x 63yrs, 60PYH e-Cigarette/Vaping Use: Never Used service: Yes Current occupational status: retired Cognitive needs: No Hearing needs: No Vision needs: Yes (wears glasses) Questionnaire PHQ-9 Over the last 2 weeks, how often have you been bothered by any of the following problems? 1. Little interest or pleasure in doing things: not at all 2. Feeling down, depressed, or hopeless: not at all 3. Trouble falling or staying asleep, or sleeping too much: not at all 4. Feeling tired or having little energy: not at all 5. Poor appetite or overeating: not at all 6. Feeling bad about yourself - or that you are a failure or have let yourself or your family down: not at all 7. Trouble concentrating on things, such as reading the newspaper or watching television: not at all 8. Moving or speaking so slowly that other people could have noticed. Or the opposite - being so fidgety or restless that you have been moving around a lot more than usual: not at all 9. Thoughts that you would be better off or of hurting yourself in some way: not at all Total score: 0 Source: Developed by Drs. Daniel St, Irasema Rios, Henry Soria and colleagues, with an educational mercedez from [employer]. Thrive Questionnaire Date Thrive assessed: 07/28/24 I am a: Patient What is your living situation today?: I have a steady place to live Within the past 12 months, did the food you bought not last and you didn't have the money to get more?: Never true Within the past 12 months, did you worry whether your food would run out before you got money to buy more?: Never true Do you have trouble paying for medicines?: Yes Do you have trouble getting transportation to medical appointments?: No Do you have trouble paying your heating and electricity bill?: No Do you have trouble taking care of your child, family member or friend?: No Do you have trouble with day-to-day activities such as bathing, preparing meals, shopping, managing finances, etc.?: No Are you currently unemployed and looking for a job?: No Are you interested in more education?: No Please select the resources that you would like help with: None Currently or been in a relationship where the following occur: No concerns reported THRIVE Score: 0 AUDIT C Alcohol Use Questionnaire (AUDIT-C) 1. How often do you have a drink containing alcohol?: 4 or more times a week 2. How many drinks containing alcohol do you have on a typical day when you are drinking?: 1 or 2 3. How often do you have six or more drinks on one occasion?: Never Total Score: 4 NANCY-7 AMB Questionnaire NANCY-7 Date NANCY - 7 assessed: 07/28/24 Feeling nervous, anxious, or on edge: 0 = Not at all Not being able to stop or control worryin = Not at all Worrying too much about different things: 0 = Not at all Trouble relaxin = Not at all Being so restless that it is hard to sit still: 0 = Not at all Becoming easily annoyed or irritable: 0 = Not at all Feeling afraid as if something awful might happen: 0 = Not at all Total NANCY-7 score (0-4 normal; 5-9 mild; 10-14 moderate; 15-21 severe): 0 Source: Developed by Drs. Daniel St, Irasema Rios, Henry Soria and colleagues, with an educational mercedez from [employer]. Review of Systems Const Denies chills, Denies fatigue, Denies fever(s), Denies headache(s) and Denies weakness ENT Denies dizziness and Denies headache(s) Card Denies dyspnea Resp Denies cough, Denies dyspnea, Denies wheezing and Denies other (shortness of breath) Musc Denies numbness and Denies tingling Neuro Denies dizziness, Denies headache(s), Denies numbness, Denies tingling and Denies weakness Psych Denies anxiety and Denies depression Endo Denies fatigue Aller/Immun Denies wheezing Physical exam (Primary Care) Vital Signs: Last Vital Signs Temp 97.7 F 11/10/24 08:55 Pulse 53 11/10/24 08:55 Resp 16 11/10/24 08:55 BP 128/64 11/10/24 08:55 Pulse Ox 100 11/10/24 08:55 Oxygen Delivery Method Room Air 11/10/24 08:55 BMI result Body Mass Index 26.8 Tobacco/Smoking Status: Tobacco use Status Tobacco use date assessed 12/10/23 11/10/24 08:49 Patient Tobacco Use Status Current everyday Tobacco 11/10/24 08:49 Tobacco use type Cigarette 11/10/24 08:49 e-Cigarette/Vaping Use Never Used 11/10/24 08:49 PHQ-9: PHQ-9 Score PHQ-9: Total score 0 11/10/24 09:16 Thrive Assessment: Date of Thrive Assessment Date Thrive assessed 07/28/24 11/10/24 08:49 Currently or been in a relationship where the following occur: No concerns reported Const General: well developed; No acute distress Nutritional Appearance: well nourished Orientation/consciousness: patient oriented x3 HENMT Head: Yes normocephalic and Yes atraumatic Eyes General: appearance normal, both eyes and all related structures Pupils: Equal, round and reactive pupils present EOM: EOMs intact bilaterally Resp Effort & Inspection: normal respiratory effort Neuro General: patient oriented x3 and gait normal Cranial nerves: Yes Equal, round and reactive pupils present Psych Affect: normal affect Coding Level of Care Code Est Pt Level 4 (09747) Diagnoses Hypertension I10 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 Continue?current?medication?regimen?and?with?Cardiology?as?recommended (3) Hyperlipidemia: Code(s): E78.5 - Hyperlipidemia, unspecified Category: Medical Plan: LDL?cholesterol?is?fairly well?controlled on?atorvastatin..??Goal?is?less?than?70 He?has?an?upcoming?appointment?with?his?comprehensive ophthalmologist We?can?recheck?his?lipids?prior?to?his?next?visit If?still?above?goal?can?consider?adjusting?atorvastatin (4) Elevated AST (SGOT): Code(s): R74.01 - Elevation of levels of liver transaminase levels Category: Medical Plan: Elevated?AST Patient?notes?he?drinks?alcohol?daily?though?he?notes?he?drinks?in?moderation Advised?he?work?on?good?hydration,?weight?loss?and?decrease?any?Tylenol?and?alcohol?use Will?recheck?in?few?months We?discussed?that?if?his?liver?enzymes?are?the?same?or?higher?will?checking?ultrasound (5) Neoplasm of uncertain behavior of skin: Code(s): D48.5 - Neoplasm of uncertain behavior of skin Category: Medical Plan: Neoplastic/changing?lesion?behind?right?ear?and?also?on?left?upper?cheek. Referred?to?dermatology (6) PAF (paroxysmal atrial fibrillation): Code(s): I48.0 - Paroxysmal atrial fibrillation Category: Medical Plan: Patient?had?been?on?rivaroxaban?but?this?has?been?stopped. Patient?says?he?can?not?afford?this?or?Eliquis. Also?discussed?warfarin?the?patient?refuses?this Currently?taking?a?baby?aspirin?81?mg No?history?of?gastrointestinal?bleeding. Follow-up?with?Cardiology?as?recommended; he?has?an?upcoming?appointment Orders: Referrals Dermatology Referral D48.5 - Neoplasm of uncertain behavior of skin
[2024-11-10 08:55] VITALS: BP 128/64; PULSE 53; RESP 16; TEMP 36.5; O2SAT 100; BMI 26.8
--- OUTSIDE RECORDS SUMMARY | 2024-11-10 09:03 | XMS_ITS | Referral Summary ---
Author Organization [facility] Address [address] [place] [address] Care Team Providers Care Customer Service Advocate Name Role Phone Wilfred Haile MD Primary Care Provider [phone] Allergies No known active allergies Medications simvastatin [...] Ductal Carcinoma. All oncologic care done at [facility] Cancer center. Dr. Peters. ++ 06/2020. [facility] Oncology. Tamoxifen Completed. Mammograms have not been [...] and SEVERE Stenosis at L4-5. ++ 04/2013. [facility]. Spinal Stenosis. Excellent Result. ++ [...] EF 50-55%. LVH 12 mm. ++ 12/2014. ECHO([place]): EF 55%. Excellent. Osteoarthritis of hip 06/11/2010 Overview (07/04/2019): 2009. The right hip is the worst and most clinically troublesome. The left is also moderately arthritic but scant clinical Sx. ++ 09/2018. Endstage OA RIGHT. THR Needed. Dr. Zamarripa requested. +01/2019. Dr. Cal Barnes. [facility]. RIGHT THR. Vitamin B12 deficiency 06/11/2010 [...] ++ 12/2014. PAF. EPS Attending at the [facility]. Dr. Guzmán. Cardioversion. NSR. Assessment & Plan [...] Not on file Procedures * Due to [place] law, this organization might not be sharing negative HIV tests. Procedure Name Priority Date/Time Associated Diagnosis Comments BASIC METABOLIC PANEL Routine 12/31/2020 1:[address] CHEST WO CONTRAST Routine 09/26/2016 11:29 AM EST from Last 3 Months or Most Recently Relevant to Health Maintenance Results * Due to [place] law, this organization might not be sharing negative HIV tests. * Basic Metabolic Panel (12/31/2020 1:30 PM EDT) Glucose 81 65 - 139 mg/dL 12/31/2020 10:10 PM EDT [employer] Comment: ? Non-fasting reference interval BUN 15 7 - 25 mg/dL 12/31/2020 10:10 PM EDT [employer] Creatinine 1.12 0.70 - 1.18 mg/dL 12/31/2020 10:10 PM EDT [employer] Comment: For patients >49 years of age, the reference limit for Creatinine is approximately 13% higher for people identified as -Nigerian. eGFR Non- 63 > OR = 60 mL/min/1 .73m2 12/31/2020 10:10 PM EDT [employer] eGFR 73 > OR = 60 mL/min/1 .73m2 12/31/2020 10:10 PM EDT [employer] [facility] Bun/Creatinine Ratio NOT APPLICABLE 6 - (calc) 12/31/2020 10:10 PM EDT [employer] Sodium 137 135 - 146 mmol/L 12/31/2020 10:10 PM EDT [employer] Potassium 4.0 3.5 - 5.3 mmol/L 12/31/2020 10:10 PM EDT [employer] Chloride 102 98 - 110 mmol/L 12/31/2020 10:10 PM EDT [employer] Carbon Dioxide 27 20 - 32 mmol/L 12/31/2020 10:10 PM EDT [employer] Calcium 9.2 8.6 - 10.3 mg/dL 12/31/2020 10:10 PM EDT [employer] Blood Structure of peripheral vein / Unknown 12/31/2020 1:30 PM EDT 12/31/2020 9:09 PM EDT Narrative [facility] - 12/31/2020 11:11 PM EDT FASTING:NO us Ranjit Lainez MD LAB BLOOD ORDERABLES Fin al Result [facility] [address] [facility] 3rd Floor, [place] [address], [employer] [facility] [address] [place] [address] * CT Chest WO Contrast (09/26/2016 11:29 [...] and agree with the resident's interpretation. WSN: [id number] Narrative 09/29/2016 1:12 PM EST EXAMINATION: Chest [...] and agree with the resident's interpretation. WSN: [id number] Ranjit Lainez MD IM CT PROCEDURES Final Result from Last 3 Months or Most Recently Relevant to Health Maintenance Insurance Advance Directives Documents on File Type Date Recorded Patient Board Mill Supervisor Expl anation Health Care Proxy 01/03/2019 11:59 AM 12/07 Health Care Proxy 07/12/2010 12:00 AM 01/2010 Care Teams Customer Service Advocate Relationship Specialty Start Date End Date Wilfred Haile MD [address] [place] [address] PCP - General Family Medicine 06/22/23
--- OUTSIDE RECORDS SUMMARY | 2024-11-10 09:03 | XMS_ITS | Clinical Summary ---
Author Organization [facility] Address [address] [place] [address] Care Team Providers Care Polisher Sand Name Role Phone Wilfred Haile MD Primary Care Provider [phone] Allergies No known active allergies Medications simvastatin [...] Carcinoma. All oncologic care done at [facility] Cancer center. Dr. Peters. ++ 06/2020. [facility] Oncology. Tamoxifen Completed. Mammograms have not been [...] and SEVERE Stenosis at L4-5. ++ 04/2013. [facility]. Spinal Stenosis. Excellent Result. ++ [...] EF 50-55%. LVH 12 mm. ++ 12/2014. ECHO([place]): EF 55%. Excellent. Osteoarthritis of hip 06/11/2010 Overview (07/04/2019): 2009. The right hip is the worst and most clinically troublesome. The left is also moderately arthritic but scant clinical Sx. ++ 09/2018. Endstage OA RIGHT. THR Needed. Dr. Zamarripa requested. +01/2019. Dr. Cal Barnes. [facility]. RIGHT THR. Vitamin B12 deficiency 06/11/2010 [...] ++ 12/2014. PAF. EPS Attending at the [facility]. Dr. Guzmán. Cardioversion. NSR. Assessment & Plan [...] complete this topic Procedures * Due to [place] state law, this organization might not be sharing negative HIV tests. Procedure Name Priority Date/Time Associated Diagnosis Comments BASIC METABOLIC PANEL Routine 12/31/2020 1:[address] CHEST WO CONTRAST Routine 09/26/2016 11:29 AM EST from Last 3 Months or Most Recently Relevant to Health Maintenance Results * Due to [place] state law, this organization might not be sharing negative HIV tests. * Basic Metabolic Panel (12/31/2020 1:30 PM EDT) Glucose 81 65 - 139 mg/dL 12/31/2020 10:10 PM [employer] [facility] Comment: ? Non-fasting reference interval BUN 15 7 - 25 mg/dL 12/31/2020 10:10 PM [employer] Creatinine 1.12 0.70 - 1.18 mg/dL 12/31/2020 10:10 PM [employer] Comment: For patients >49 years of age, the reference limit for Creatinine is approximately 13% higher for people identified as -Libyan. eGFR Non- 63 > OR = 60 mL/min/1 .73m2 12/31/2020 10:10 PM [email or web address] [facility] eGFR 73 > OR = 60 mL/min/1 .73m2 12/31/2020 10:10 PM [email or web address] [facility] Bun/Creatinine Ratio NOT APPLICABLE 6 - 22 (calc) 12/31/2020 10:10 PM [email or web address] [facility] Sodium 137 135 - 146 mmol/L 12/31/2020 10:10 PM [email or web address] [facility] Potassium 4.0 3.5 - 5.3 mmol/L 12/31/2020 10:10 PM [employer] Chloride 102 98 - 110 mmol/L 12/31/2020 10:10 PM [employer] Carbon Dioxide 27 20 - 32 mmol/L 12/31/2020 10:10 PM [employer] Calcium 9.2 8.6 - 10.3 mg/dL 12/31/2020 10:10 PM [email or web address] [facility] Blood Structure of peripheral vein / Unknown 12/31/2020 1:30 PM EDT 12/31/2020 9:09 PM EDT Narrative [facility] - 12/31/2020 11:11 PM EDT FASTING:NO us Ranjit Lainez MD LAB BLOOD ORDERABLES Fin al Result [facility] [address] [facility] 3rd [address], [place] [address], [place] [phone] [email or web address] [facility] [address] [place] [address] * CT Chest WO Contrast (09/26/2016 11:29 [...] and agree with the resident's interpretation. WSN: [id number] Narrative 09/29/2016 1:12 PM EST EXAMINATION: Chest [...] and agree with the resident's interpretation. WSN: [id number] us Ranjit Lainez MD IMG CT PROCEDURES Final Result from Last 3 Months or Most Recently Relevant to Health Maintenance Insurance Advance Directives Documents on File Type Date Recorded Patient Lobby Concierge Expl anation Health Care Proxy 01/03/2019 11:59 AM 12/07 Health Care Proxy 07/12/2010 12:00 AM 01/2010 Care Teams Polisher Sand Relationship Specialty Start Date End Date Wilfred Haile MD [address] [place], [place] [id number] PCP - General Family Medicine 06/22/23
== END 2024-11-10 09:46 | disposition home or self-care (01) ==
PROVIDERS: PCP Family Medicine; Visit Provider Family Medicine
DX: I10 Essential (primary) hypertension (principal); I48.0 Paroxysmal atrial fibrillation; I25.10 Atherosclerotic heart disease of native coronary artery without angina pectoris; E78.5 Hyperlipidemia, unspecified; R74.01 Elevation of levels of liver transaminase levels; D48.5 Neoplasm of uncertain behavior of skin

== ENCOUNTER → 2024-11-10 08:33 | Outpatient (BNVA) | payer MEDICARE, SELFPAY | PROVIDERS: PCP Family Medicine; Visit Provider Family Medicine | DX: I10 Essential (primary) hypertension (principal); I25.10 Atherosclerotic heart disease of native coronary artery without angina pectoris; E78.5 Hyperlipidemia, unspecified; R74.01 Elevation of levels of liver transaminase levels; D48.5 Neoplasm of uncertain behavior of skin; I48.0 Paroxysmal atrial fibrillation | CPT/HCPCS: 99212 ==

== ENCOUNTER 2024-11-16 12:46 | Outpatient (AMB) | payer MEDICARE, SELFPAY ==
--- NOTE | 2024-11-16 12:48 | A.OFFVIS_ITS ---
Vital Signs 11/16/24 12:49 Height 5 ft 11 in Weight 187 lb 6.287 oz BMI 26.1 BP 128/68 Blood Pressure Location Lt brachial Position Sitting Pulse 66 Pulse Source Pulse Oximeter Intake Visit Reasons: 6 month follow-up Allergies No Known Allergies Allergy (Verified 11/10/24 08:53) Medication List - Last Reconciled 11/16/24 by John Velazquez MD amiodarone 200 mg PO DAILY aspirin 81 mg PO BID atorvastatin 40 mg PO QPM metoprolol tartrate 25 mg PO BID HPI Comments Details: Rambo returns for follow-up. To recall, he was previously followed at [facility]. Has a history of atrial fibrillation and underwent GERRI/ca rdioversion many years ago. He was maintained on flecainide. Also was not on anticoagulation by his own choice. He recently underwent echocardiogram and that showed inferior wall motion abnormality and we stopped the Flecainide and switched him to beta-blockers. Then he came for a stress test and at that time he went into atrial fibrillation during the ETT. Then we sent him to ER and he received flecainide and converted to sinus rhythm. After that, switched to Multaq, but he still had atrial fibrillation and hence he is on amiodarone. He also underwent perfusion imaging showing inferior findings. Since last seen, no new concerns. He states he feels good. With regard to anticoagulation, he stopped taking the Eliquis because of financial reasons. He states he would rather stay off anticoagulation. Does not want Coumadin. Hour of stroke risk. [facility] Medical History (Updated 11/10/24 @ 09:35 by Wilfred Haile MD) Screening for prostate cancer Screening for colon cancer Adult general medical exam Emphysema of lung Encounter for monitoring flecainide therapy Smoker History of atrial fibrillation Laboratory exam ordered as part of routine general medical examination PAF (paroxysmal atrial fibrillation) Hyperlipidemia History of cancer of right breast Personal history of nicotine dependence Surgical History History of cardioversion H/O colonoscopy History of right mastectomy History of total right hip arthroplasty History of back surgery Family History Paternal Grandfather Heart attack Mother Alzheimer disease Father Cancer Social History Housing: House Are you a primary rn primary care to a significant other at home: No Do you presently have visiting nurse or other home services: No Alcohol intake: current Alcohol intake frequency: 0-2 drinks per day Comment: social Patient Tobacco Use Status: Current everyday Tobacco user Tobacco use type: Cigarette Cigarette Packs Per Day: 1 Cigarettes Per Day: 20.0 Years Smoked: onset 13, 1ppd x 63yrs, 60PYH e-Cigarette/Vaping Use: Never Used service: Yes Current occupational status: retired Cognitive needs: No Hearing needs: No Vision needs: Yes (wears glasses) Review of Systems Const Denies weakness ENT Denies dizziness Card Denies chest pain, Denies chest pain with activity, Denies syncope, Denies rapid heart rate, Denies pedal edema, Denies edema, Denies leg edema, Denies lightheadedness, Denies palpitations, Denies dyspnea, Denies dyspnea on exertion and Denies orthopnea Resp Denies cough, Denies dyspnea and Denies dyspnea on exertion GI Denies hematochezia and Denies change in stool character Musc Denies abnormal gait, Denies muscle cramps, Denies muscle weakness, Denies numbness, Denies radiating pain into limb and Denies tingling Neuro Denies abnormal gait, Denies dizziness, Denies syncope, Denies numbness, Denies tingling and Denies weakness Endo Denies palpitations Physical Exam Vital Signs: Last Vital Signs Pulse 66 11/16/24 12:49 BP 128/68 11/16/24 12:49 BMI result Body Mass Index 26.1 Const General: comfortable and no acute distress Orientation/consciousness: patient oriented x3 HEENT Other: Unremarkable Head: Yes normal to inspection Neck Neck: Yes normal visual inspection Chest Chest palpation & inspection: normal inspection of the chest Resp Auscultation: clear to auscultation bilaterally Cardio Palpation: normal PMI Heart sounds: S1 normal heart sound present, S2 normal heart sound present, no gallops, no murmurs and no rubs GI Palpation (GI): Soft to palpation Back/Spine/Pelvis Other: unremarkable Skin General skin exam: no rashes or lesions noted Neuro General: patient oriented x3 Extrem General: Yes normal to inspection Psych Mental Status: mental status grossly normal Assessment & Plan Assessment & Plan (1) PAF (paroxysmal atrial fibrillation): Code(s): I48.0 - Paroxysmal atrial fibrillation Category: Medical (2) Atherosclerotic cardiovascular disease: Code(s): I25.10 - Atherosclerotic heart disease of [place] coronary artery without angina pectoris Category: Medical Plan Cardiac data reviewed. Per [facility] records, cardioversion in 2014. Has been on Flecainide since then. Echocardiogram with LVEF of 45-50% and RCA territory wall motion abnormality. Myocardial perfusion imaging study shows fixed inferior defect that could be from a prior infarct. Due to suspected coronary disease and unknown anatomy, he is off the flecainide. Currently on amiodarone. As he is free of atrial fibrillation, decrease the dose to 3 times a week. With regard to anticoagulation, he stopped Xarelto because of financial reasons. Does not want to go on Coumadin. We discussed about stroke risk and he states he would rather take a chance. In the past, discussed about diagnostic catheterization but he wants to only be on conservative therapy. If any concerning symptoms, he will contact us. Orders: Orders TSH reflex Free T4 Today I48.0 - Paroxysmal atrial fibrillation, R94.6 - Abnormal results of thyroid function studies Medications: Changed From amiodarone 200 mg PO DAILY 90 tabs 1RF To amiodarone 200 mg orally; thursday/thu/thu 90 tabs 1RF Patient Instructions: - Continue baby aspirin as directed. - Adjust amiodarone intake to Thursday, Thursday, and Thursday. - Follow up with thyroid blood tests at a convenient local lab. - Monitor symptoms; contact immediately if experiencing palpitations or irregular heartbeat. - Return for follow-up in six months. - Consider warfarin as an affordable anticoagulant option if financial constraints persist. Coding Level of Care Code Est Pt Level 4 (98447) Complex EM visit Add On G2211 Diagnoses PAF (paroxysmal atrial fibrillation) I48.0 Atherosclerotic cardiovascular disease I25.10
[2024-11-16 12:49] VITALS: BP 128/68; PULSE 66; BMI 26.1
--- OUTSIDE RECORDS SUMMARY | 2024-11-16 14:48 | XMS_ITS | Referral Summary ---
Author Organization [facility] Address [address] [place] [address] Care Team Providers Care Service Electrician Name Role Phone Wilfred Haile MD Primary Care Provider [phone] Allergies No known active allergies Medications simvastatin [...] Ductal Carcinoma. All oncologic care done at [facility] Cancer center. Dr. Peters. ++ 06/2020. [facility] Oncology. Tamoxifen Completed. Mammograms have not [...] and SEVERE Stenosis at L4-5. ++ 04/2013. [facility]. Spinal Stenosis. Excellent Result. ++ [...] EF 50-55%. LVH 12 mm. ++ 12/2014. ECHO([facility]): EF 55%. Excellent. Osteoarthritis of hip 06/11/2010 Overview (07/04/2019): 2009. The right hip is the worst and most clinically troublesome. The left is also moderately arthritic but scant clinical Sx. ++ 09/2018. Endstage OA RIGHT. THR Needed. Dr. Zamarripa requested. +01/2019. Dr. Cal Barnes. [facility]. RIGHT THR. Vitamin B12 deficiency 06/11/2010 Overview [...] ++ 12/2014. PAF. EPS Attending at the [facility]. Dr. Guzmán. Cardioversion. NSR. Assessment & Plan [...] Not on file Procedures * Due to [place] [employer]lick[employer] law, this organization might not be sharing negative HIV tests. Procedure Name Priority Date/Time Associated Diagnosis Comments BASIC METABOLIC PANEL Routine 12/31/2020 1:[address] CHEST WO CONTRAST Routine 09/26/2016 11:29 AM EST from Last 3 Months or Most Recently Relevant to Health Maintenance Results * Due to [place] [employer] law, this organization might not be sharing negative HIV tests. * Basic Metabolic Panel (12/31/2020 1:30 PM EDT) Glucose 81 65 - 139 mg/dL 12/31/2020 10:10 PM EDT [facility] Comment: ? Non-fasting reference interval BUN 15 7 - 25 mg/dL 12/31/2020 10:10 PM EDT [facility] Creatinine 1.12 0.70 - 1.18 mg/dL 12/31/2020 10:10 PM EDT [facility] Comment: For patients >49 years of age, the reference limit for Creatinine is approximately 13% higher for people identified as -[place]. eGFR Non- 63 > OR = 60 mL/min/1 .73m2 12/31/2020 10:10 PM EDT [facility] eGFR 73 > OR = 60 mL/min/1 .73m2 12/31/2020 10:10 PM EDT [facility] Bun/Creatinine Ratio NOT APPLICABLE 6 - (calc) 12/31/2020 10:10 PM EDT [facility] Sodium 137 135 - 146 mmol/L 12/31/2020 10:10 PM EDT [facility] Potassium 4.0 3.5 - 5.3 mmol/L 12/31/2020 10:10 PM EDT [facility] Chloride 102 98 - 110 mmol/L 12/31/2020 10:10 PM EDT [facility] Carbon Dioxide 27 20 - 32 mmol/L 12/31/2020 10:10 PM EDT [facility] Calcium 9.2 8.6 - 10.3 mg/dL 12/31/2020 10:10 PM EDT [facility] Blood Structure of peripheral vein / Unknown 12/31/2020 1:30 PM EDT 12/31/2020 9:09 PM EDT Narrative [facility] - 12/31/2020 11:11 PM EDT FASTING:NO us Ranjit Lainez MD LAB BLOOD ORDERABLES Fin al Result [facility] [address], [place] [address], [facility] [address] [place] [address] * CT Chest WO Contrast (09/26/2016 11:29 [...] and agree with the resident's interpretation. WSN: [id number] Narrative 09/29/2016 1:12 PM EST EXAMINATION: Chest [...] and agree with the resident's interpretation. WSN: [id number] Ranjit Lainez MD IM CT PROCEDURES Final Result from Last 3 Months or Most Recently Relevant to Health Maintenance Insurance Advance Directives Documents on File Type Date Recorded Patient Weatherization Operations Manager Expl anation Health Care Proxy 01/03/2019 11:59 AM 12/07 Health Care Proxy 07/12/2010 12:00 AM 01/2010 Care Teams Service Electrician Relationship Specialty Start Date End Date Wilfred Haile MD [address] [place] [address] PCP - General Family Medicine 06/22/23
--- OUTSIDE RECORDS SUMMARY | 2024-11-16 14:48 | XMS_ITS | Clinical Summary ---
Author Organization [facility] Address [address] [place] [address] Care Team Providers Care Donor Specialist Name Role Phone Wilfred Haile MD Primary Care Provider [phone] Allergies No known active allergies Medications simvastatin [...] Ductal Carcinoma. All oncologic care done at [facility] Cancer center. Dr. Peters. ++ 06/2020. [facility] Oncology. Tamoxifen Completed. Mammograms have [...] and SEVERE Stenosis at L4-5. ++ 04/2013. [facility]. Spinal Stenosis. Excellent Result. ++ [...] EF 50-55%. LVH 12 mm. ++ 12/2014. ECHO([facility]): EF 55%. Excellent. Osteoarthritis of hip 06/11/2010 Overview (07/04/2019): 2009. The right hip is the worst and most clinically troublesome. The left is also moderately arthritic but scant clinical Sx. ++ 09/2018. Endstage OA RIGHT. THR Needed. Dr. Zamarripa requested. +01/2019. Dr. Cal Barnes. [facility]. RIGHT THR. Vitamin B12 deficiency [...] ++ 12/2014. PAF. EPS Attending at the [facility]. Dr. Guzmán. Cardioversion. NSR. Assessment & Plan [...] complete this topic Procedures * Due to [place] state law, this organization might not be sharing negative HIV tests. Procedure Name Priority Date/Time Associated Diagnosis Comments BASIC METABOLIC PANEL Routine 12/31/2020 1:[address] CHEST WO CONTRAST Routine 09/26/2016 11:29 AM EST from Last 3 Months or Most Recently Relevant to Health Maintenance Results * Due to [place] state law, this organization might not be sharing negative HIV tests. * Basic Metabolic Panel (12/31/2020 1:30 PM EDT) Glucose 81 65 - 139 mg/dL 12/31/2020 10:10 PM [facility] Comment: ? Non-fasting reference interval BUN 15 7 - 25 mg/dL 12/31/2020 10:10 PM [facility] Creatinine 1.12 0.70 - 1.18 mg/dL 12/31/2020 10:10 PM [facility] Comment: For patients >49 years of age, the reference limit for Creatinine is approximately 13% higher for people identified as -[place]. eGFR Non- 63 > OR = 60 mL/min/1 .73m2 12/31/2020 10:10 PM [facility] eGFR 73 > OR = 60 mL/min/1 .73m2 12/31/2020 10:10 PM [facility] Bun/Creatinine Ratio NOT APPLICABLE 6 - 22 (calc) 12/31/2020 10:10 PM [facility] Sodium 137 135 - 146 mmol/L 12/31/2020 10:10 PM [facility] Potassium 4.0 3.5 - 5.3 mmol/L 12/31/2020 10:10 PM [facility] Chloride 102 98 - 110 mmol/L 12/31/2020 10:10 PM [facility] Carbon Dioxide 27 20 - 32 mmol/L 12/31/2020 10:10 PM [facility] Calcium 9.2 8.6 - 10.3 mg/dL 12/31/2020 10:10 PM [facility] Blood Structure of peripheral vein / Unknown 12/31/2020 1:30 PM EDT 12/31/2020 9:09 PM EDT Narrative [facility] - 12/31/2020 11:11 PM EDT FASTING:NO us Ranjit Lainez MD LAB BLOOD ORDERABLES Fin al Result [facility] [address] [facility] [address], [place] [address], [place] [phone] [email or web address] [address] [place] [address] * CT Chest WO Contrast (09/26/2016 11:29 [...] and agree with the resident's interpretation. WSN: [id number] Narrative 09/29/2016 1:12 PM EST EXAMINATION: Chest [...] and agree with the resident's interpretation. WSN: [id number] us Ranjit Lainez MD IMG CT PROCEDURES Final Result from Last 3 Months or Most Recently Relevant to Health Maintenance Insurance Advance Directives Documents on File Type Date Recorded Patient Ski Guide Expl anation Health Care Proxy 01/03/2019 11:59 AM 12/07 Health Care Proxy 07/12/2010 12:00 AM 01/2010 Care Teams Donor Specialist Relationship Specialty Start Date End Date Wilfred Haile MD [address] [place], [place] [id number] PCP - General Family Medicine 06/22/23
== END 2024-11-16 13:11 | disposition home or self-care (01) ==
LOC: HO.HCS 12:47
PROVIDERS: PCP Family Medicine; Visit Provider Internal Medicine
DX: I48.0 Paroxysmal atrial fibrillation (principal); I25.10 Atherosclerotic heart disease of native coronary artery without angina pectoris
CPT/HCPCS: 99214; G2211

== ENCOUNTER → 2024-11-16 12:46 | Outpatient (BNVA) | payer MEDICARE, SELFPAY | PROVIDERS: PCP Family Medicine; Visit Provider Internal Medicine | DX: I48.0 Paroxysmal atrial fibrillation (principal); I25.10 Atherosclerotic heart disease of native coronary artery without angina pectoris | CPT/HCPCS: 99212 ==

== ENCOUNTER 2024-11-30 07:53 | Outpatient (REF) | payer MEDICARE, SELFPAY ==
[2024-11-30 11:29] LABS: Alanine Aminotransferase 31 U/L (0-40); Albumin Level 3.7 g/dL (3.5-5.0); Alkaline Phosphatase 96 U/L (39-117); Anion Gap 9 (12-20); Aspartate Amino Transferase 51 U/L (5-37); Bilirubin Total 0.3 mg/dL (0.0-1.0); Blood Urea Nitrogen 22 mg/dL (9-16); Calcium 9.2 mg/dL (8.4-10.2); Carbon Dioxide 30 mmol/L (22-29); Chloride 105 mmol/L (96-108); Cholesterol 170 mg/dL (<200); Estimated Glomerular Filt Rate 46; Glucose Fasting 86 mg/dL (60-99); HDL Cholesterol 63 mg/dL (>40); LDL Cholesterol Calculated 91 mg/dL (<100); Potassium 4.7 mmol/L (3.3-5.1); Sodium 139 mmol/L (135-145); Triglycerides 83 mg/dL (<150)
[2024-11-30 11:49] LABS: TSH reflex Free T4 77.93 uIU/mL (0.32-4.0)
[2024-11-30 12:30] LABS: Free T4 (Free Thyroxine) < 0.42 ng/dL (0.71-1.85)
== END 2024-11-30 07:54 | disposition home or self-care (01) ==
LOC: HO.WFDLDS 07:53
PROVIDERS: Internal Medicine; Visit Provider Family Medicine
DX: Z00.00 Encounter for general adult medical examination without abnormal findings (principal); I25.10 Atherosclerotic heart disease of native coronary artery without angina pectoris; I48.0 Paroxysmal atrial fibrillation; R94.6 Abnormal results of thyroid function studies
CPT/HCPCS: 36415; 80053; 80061; 84439; 84443

== ENCOUNTER 2024-12-12 09:32 | Outpatient (AMB) | payer MEDICARE, SELFPAY ==
--- NOTE | 2024-12-12 09:51 | MHC.PC.OV ---
Vital Signs 12/12/24 09:55 12/12/24 09:57 Height 5 ft 11 in Weight 192 lb 2 oz BMI 26.8 BP 140/70 H 136/70 Blood Pressure Location Rt brachial Rt brachial Position Sitting Sitting Respiration 16 Pulse 52 Pulse Source Pulse Oximeter Temp 98.4 F Temp Source Oral Pulse Oximetry (%) 96 Oxygen Delivery Method Room Air Intake Visit Reasons: elevated TSH Intake Note: patient scheduled for lab review Chemical Lab Technician Required: No Allergies No Known Allergies Allergy (Verified 12/12/24 09:53) Medication List - Last Reconciled 12/12/24 by Wilfred Haile MD amiodarone 200 mg orally; thursday/thu/thu aspirin 81 mg PO BID atorvastatin 40 mg PO QPM metoprolol tartrate 25 mg PO BID Tobacco use date assessed: 12/10/23 Dental Screening Dental Screen Date: 12/10/23 HPI elevated TSH HPI Details 79 y/o male presents to f/u TSH levels. Labs drawn 11/30/24. Reviewed labs with pt. Creatinine level 1.46 mg/dL. Elevated AST of 51. TSH 77.93. Free T4 <0.42. HPI Comments History of Present Illness Details Documentation assistance for Wilfred Haile MD, was provided by Chao Hicks,? Chief Of Internal Medicine on 12/12/2024 at 10:36 AM EST. I, Dr. Haile, have read, observed, and verified documentation. ?? [facility] Medical History (Updated 12/12/24 @ 10:23 by Chao Hicks) Screening for prostate cancer Screening for colon cancer Adult general medical exam Emphysema of lung Encounter for monitoring flecainide therapy Smoker History of atrial fibrillation Laboratory exam ordered as part of routine general medical examination PAF (paroxysmal atrial fibrillation) Hyperlipidemia History of cancer of right breast Personal history of nicotine dependence Surgical History History of cardioversion H/O colonoscopy History of right mastectomy History of total right hip arthroplasty History of back surgery Family History Paternal Grandfather Heart attack Mother Alzheimer disease Father Cancer Social History Housing: House Are you a primary patient care manager to a significant other at home: No Do you presently have visiting nurse or other home services: No Alcohol intake: current Alcohol intake frequency: 0-2 drinks per day Comment: social Patient Tobacco Use Status: Current everyday Tobacco user Tobacco use type: Cigarette Cigarette Packs Per Day: 1 Cigarettes Per Day: 20.0 Years Smoked: onset 13, 1ppd x 63yrs, 60PYH Packs Per Year: 0 Packs per year/per ci.00 e-Cigarette/Vaping Use: Never Used service: Yes Current occupational status: retired Cognitive needs: No Hearing needs: No Vision needs: Yes (wears glasses) Questionnaire Thrive Questionnaire Date Thrive assessed: 11/10/24 I am a: Patient What is your living situation today?: I have a steady place to live Within the past 12 months, did the food you bought not last and you didn't have the money to get more?: Never true Within the past 12 months, did you worry whether your food would run out before you got money to buy more?: Never true Do you have trouble paying for medicines?: Yes Do you have trouble getting transportation to medical appointments?: No Do you have trouble paying your heating and electricity bill?: No Do you have trouble taking care of your child, family member or friend?: No Do you have trouble with day-to-day activities such as bathing, preparing meals, shopping, managing finances, etc.?: No Are you currently unemployed and looking for a job?: No Are you interested in more education?: No Please select the resources that you would like help with: None Currently or been in a relationship where the following occur: No concerns reported THRIVE Score: 0 NANCY-7 AMB Questionnaire NANCY-7 Date NANCY - 7 assessed: 07/28/24 Source: Developed by Drs. Daniel St, Irasema Rios, Henry Soria and colleagues, with an educational mercedez from [employer]. Review of Systems Const Denies chills, Reports fatigue, Denies fever(s), Denies headache(s) and Denies weakness ENT Denies dizziness and Denies headache(s) Card Denies dyspnea Resp Denies cough, Denies dyspnea, Denies wheezing and Denies other (shortness of breath) Musc Denies numbness and Denies tingling Neuro Denies dizziness, Denies headache(s), Denies numbness, Denies tingling and Denies weakness Psych Denies anxiety and Denies depression Endo Reports fatigue Aller/Immun Denies wheezing Physical exam (Primary Care) Vital Signs: Last Vital Signs Temp 98.4 F 12/12/24 09:55 Pulse 52 12/12/24 09:55 Resp 16 12/12/24 09:55 BP 136/70 12/12/24 09:57 Pulse Ox 96 12/12/24 09:55 Oxygen Delivery Method Room Air 12/12/24 09:55 BMI result Body Mass Index 26.8 Tobacco/Smoking Status: Tobacco use Status Tobacco use date assessed 12/10/23 12/12/24 09:58 Patient Tobacco Use Status Current everyday Tobacco 12/12/24 09:58 Tobacco use type Cigarette 12/12/24 09:58 e-Cigarette/Vaping Use Never Used 12/12/24 09:58 Thrive Assessment: Date of Thrive Assessment Date Thrive assessed 11/10/24 12/12/24 09:58 Currently or been in a relationship where the following occur: No concerns reported Const General: well developed; No acute distress Nutritional Appearance: well nourished Orientation/consciousness: patient oriented x3 [facility] Head: Yes normocephalic and Yes atraumatic Eyes General: appearance normal, both eyes and all related structures Pupils: Equal, round and reactive pupils present EOM: EOMs intact bilaterally Resp Effort & Inspection: normal respiratory effort Auscultation: clear to auscultation bilaterally Cardio Rate: regular rate Rhythm: regular rhythm Heart sounds: S1 normal heart sound present, S2 normal heart sound present, no gallops, no murmurs and no rubs Neuro General: patient oriented x3 and gait normal Cranial nerves: Yes Equal, round and reactive pupils present Psych Affect: normal affect Coding Level of Care Code Est Pt Level 4 (29038) Diagnoses Elevated TSH R79.89 Elevated serum creatinine R79.89 Elevated AST (SGOT) R74.01 Assessment & Plan Assessment & Plan (1) Elevated TSH: Code(s): R79.89 - Other specified abnormal findings of blood chemistry Category: Medical Plan: Significantly?elevated TSH?level, which?had?been?suppressed?at?prior?lab?check?and?then?had?intervening?normal?TSH Possibly?secondary?to?amiodarone?therapy?verses other?cause autoimmune?thyroiditis Checking?lab?work?again Will?follow-up?with?patient?when?results?are?in Mildly?prominent?thyroid?but?no?masses?palpated.??Will?discuss?next?steps?with?patient?soon?as?results?available (2) Elevated serum creatinine: Code(s): R79.89 - Other specified abnormal findings of blood chemistry Category: Medical Plan: Hydrate?well Rechecking lab?work?today (3) Elevated AST (SGOT): Code(s): R74.01 - Elevation of levels of liver transaminase levels Category: Medical Plan: Mildly?elevated?AST.??ALT?need?remains?within?range Hydrate?well?and avoid?excess?Tylenol,?alcohol?and?weight
[2024-12-12 09:55] VITALS: BP 140/70; PULSE 52; RESP 16; TEMP 36.9; O2SAT 96; BMI 26.8
[2024-12-12 09:57] VITALS: BP 136/70
--- OUTSIDE RECORDS SUMMARY | 2024-12-12 10:47 | XMS_ITS | Clinical Summary ---
Author Organization [facility] Address [address] [place] [address] Care Team Providers Care Telemarketing Agent Name Role Phone Wilfred Haile MD Primary Care Provider [phone] Allergies No known active allergies Medications simvastatin [...] Ductal Carcinoma. All oncologic care done at [facility] Cancer center. Dr. Peters. ++ 06/2020. [place] [...] and SEVERE Stenosis at L4-5. ++ 04/2013. [facility]. Spinal Stenosis. Excellent Result. ++ [...] EF 50-55%. LVH 12 mm. ++ 12/2014. ECHO([facility]): EF 55%. Excellent. Osteoarthritis of hip 06/11/2010 Overview (07/04/2019): 2009. The right hip is the worst and most clinically troublesome. The left is also moderately arthritic but scant clinical Sx. ++ 09/2018. Endstage OA RIGHT. THR Needed. Dr. Zamarripa requested. +01/2019. Dr. Cal Barnes. [facility]. RIGHT THR. Vitamin B12 deficiency 06/11/2010 Overview [...] ++ 12/2014. PAF. EPS Attending at the [facility]. Dr. Guzmán. Cardioversion. NSR. Assessment & Plan [...] 12/31/2020 , 12/24/2020, 06/28/2019, Additional history exists Alcohol/Substance Use Screening 09/07/2024 Depression Screening and Follow-Up 09/07/2024 Health Care Proxy Review 09/07/2024 Social Drivers of Health Annual Screening 09/07/2024 Influenza Vaccine (Season Ended) 2025 CT Lung Cancer Screening (12 months, previous LungRADS 1 or 2) Discontinued 09/26/2016, 07/26/2015 Hepatitis B Vaccines Aged Out No long er eligible based on patient's age to complete this topic Procedures * Due to [place] state law, this organization might not be sharing negative HIV tests. Procedure Name Priority Date/Time Associated Diagnosis Comments BASIC METABOLIC PANEL Routine 12/31/2020 1:[address] CHEST WO CONTRAST Routine 09/26/2016 11:29 AM EST from Last 3 Months or Most Recently Relevant to Health Maintenance Results * Due to [place] state law, this organization might not be sharing negative HIV tests. * Basic Metabolic Panel (12/31/2020 1:30 PM EDT) Glucose 81 65 - 139 mg/dL 12/31/2020 10:10 PM [employer] Comment: ? Non-fasting reference interval BUN 15 7 - 25 mg/dL 12/31/2020 10:10 PM [facility] Creatinine 1.12 0.70 - 1.18 mg/dL 12/31/2020 10:10 PM [employer] Comment: For patients >49 years of age, the reference limit for Creatinine is approximately 13% higher for people identified as -Icelandic. eGFR Non- 63 > OR = 60 mL/min/1 .73m2 12/31/2020 10:10 PM [employer] [facility] eGFR 73 > OR = 60 mL/min/1 .73m2 12/31/2020 10:10 PM [employer] [facility] Bun/Creatinine Ratio NOT APPLICABLE 6 - 22 (calc) 12/31/2020 10:10 PM [employer] [facility] Sodium 137 135 - 146 mmol/L 12/31/2020 10:10 PM [employer] [facility] Potassium 4.0 3.5 - 5.3 mmol/L 12/31/2020 10:10 PM [employer] Chloride 102 98 - 110 mmol/L 12/31/2020 10:10 PM [facility] Carbon Dioxide 27 20 - 32 mmol/L 12/31/2020 10:10 PM [employer] Calcium 9.2 8.6 - 10.3 mg/dL 12/31/2020 10:10 PM [employer] [facility] Blood Structure of peripheral vein / Unknown 12/31/2020 1:30 PM EDT 12/31/2020 9:09 PM EDT Narrative [facility] - 12/31/2020 11:11 PM EDT FASTING:NO us Ranjit Lainez MD LAB BLOOD ORDERABLES Fin al Result [facility] [address] [facility] 3rd Floor, [place] [address], [place] [phone] [facility] [address] [place] [address] * CT Chest WO Contrast (09/26/2016 11:29 [...] and agree with the resident's interpretation. WSN: [id number] Narrative 09/29/2016 1:12 PM EST EXAMINATION: Chest [...] and agree with the resident's interpretation. WSN: [id number] us Ranjit Lainez MD IMG CT PROCEDURES Final Result from Last 3 Months or Most Recently Relevant to Health Maintenance Insurance Advance Directives Documents on File Type Date Recorded Patient Fitness/Wellness Director Expl anation Health Care Proxy 01/03/2019 11:59 AM 12/07 Health Care Proxy 07/12/2010 12:00 AM 01/2010 Care Teams Telemarketing Agent Relationship Specialty Start Date End Date Wilfred Haile MD [address] [place], [place] [id number] PCP - General Family Medicine 06/22/23
--- OUTSIDE RECORDS SUMMARY | 2024-12-12 10:48 | XMS_ITS | Referral Summary ---
Author Organization [facility] Address [address] [place] [address] Care Team Providers Care Senior Clinical Consultant Name Role Phone Wilfred Haile MD Primary Care Provider [phone] Allergies No known active allergies Medications simvastatin [...] Ductal Carcinoma. All oncologic care done at [facility] Cancer center. Dr. Peters. ++ 06/2020. [facility] Oncology. Tamoxifen Completed. Mammograms have not [...] and SEVERE Stenosis at L4-5. ++ 04/2013. [facility]. Spinal Stenosis. Excellent Result. ++ [...] EF 50-55%. LVH 12 mm. ++ 12/2014. ECHO([facility]): EF 55%. Excellent. Osteoarthritis of hip 06/11/2010 Overview (07/04/2019): 2009. The right hip is the worst and most clinically troublesome. The left is also moderately arthritic but scant clinical Sx. ++ 09/2018. Endstage OA RIGHT. THR Needed. Dr. Zamarripa requested. +01/2019. Dr. Cal Barnes. [facility]. RIGHT THR. Vitamin B12 deficiency [...] ++ 12/2014. PAF. EPS Attending at the [facility]. Dr. Guzmán. Cardioversion. NSR. Assessment & Plan [...] on file Procedures * Due to [place] [employer] law, this organization might not be sharing negative HIV tests. Procedure Name Priority Date/Time Associated Diagnosis Comments BASIC METABOLIC PANEL Routine 12/31/2020 1:[address] CHEST WO CONTRAST Routine 09/26/2016 11:29 AM EST from Last 3 Months or Most Recently Relevant to Health Maintenance Results * Due to [place] [employer] law, this organization might not be sharing negative HIV tests. * Basic Metabolic Panel (12/31/2020 1:30 PM EDT) Glucose 81 65 - 139 mg/dL 12/31/2020 10:10 PM EDT [employer] Comment: ? Non-fasting reference interval BUN 15 7 - 25 mg/dL 12/31/2020 10:10 PM EDT [employer] Creatinine 1.12 0.70 - 1.18 mg/dL 12/31/2020 10:10 PM EDT [employer] Comment: For patients >49 years of age, the reference limit for Creatinine is approximately 13% higher for people identified as -Romanian. eGFR Non- 63 > OR = 60 mL/min/1 .73m2 12/31/2020 10:10 PM EDT [employer] eGFR 73 > OR = 60 mL/min/1 .73m2 12/31/2020 10:10 PM EDT [employer] [facility] Bun/Creatinine Ratio NOT APPLICABLE 6 - (calc) 12/31/2020 10:10 PM EDT [employer] [facility] Sodium 137 135 - 146 mmol/L 12/31/2020 10:10 PM EDT [employer] [facility] Potassium 4.0 3.5 - 5.3 mmol/L 12/31/2020 10:10 PM EDT [employer] [facility] Chloride 102 98 - 110 mmol/L 12/31/2020 10:10 PM EDT [employer] [facility] Carbon Dioxide 27 20 - 32 mmol/L 12/31/2020 10:10 PM EDT [employer] [facility] Calcium 9.2 8.6 - 10.3 mg/dL 12/31/2020 10:10 PM EDT [employer] [facility] Blood Structure of peripheral vein / Unknown 12/31/2020 1:30 PM EDT 12/31/2020 9:09 PM EDT Narrative [facility] - 12/31/2020 11:11 PM EDT FASTING:NO us Ranjit Lainez MD LAB BLOOD ORDERABLES Fin al Result [facility] [address] [facility] [address], [place] [address], [employer] [facility] [address] [place] [address] * CT Chest WO Contrast (09/26/2016 11:29 [...] and agree with the resident's interpretation. WSN: [id number] Narrative 09/29/2016 1:12 PM EST EXAMINATION: Chest [...] and agree with the resident's interpretation. WSN: [id number] Ranjit Lainez MD IM CT PROCEDURES Final Result from Last 3 Months or Most Recently Relevant to Health Maintenance Insurance Advance Directives Documents on File Type Date Recorded Patient Supervisor [place] Expl anation Health Care Proxy 01/03/2019 11:59 AM 12/07 Health Care Proxy 07/12/2010 12:00 AM 01/2010 Care Teams Senior Clinical Consultant Relationship Specialty Start Date End Date Wilfred Haile MD [address] [place] [address] PCP - General Family Medicine 06/22/23
== END 2024-12-12 10:47 | disposition home or self-care (01) ==
LOC: HO.HMCFM 09:33
PROVIDERS: PCP Family Medicine; Visit Provider Family Medicine
DX: R79.89 Other specified abnormal findings of blood chemistry (principal); R74.01 Elevation of levels of liver transaminase levels

== ENCOUNTER → 2024-12-12 09:32 | Outpatient (BNVA) | payer MEDICARE, SELFPAY | PROVIDERS: PCP Family Medicine; Visit Provider Family Medicine | DX: Z13.89 Encounter for screening for other disorder (principal) | CPT/HCPCS: 99212 ==

== ENCOUNTER 2024-12-12 11:02 | Outpatient (REF) | payer MEDICARE, SELFPAY ==
--- OUTSIDE RECORDS SUMMARY | 2024-12-12 13:13 | XMS_ITS | Referral Summary ---
Author Organization [facility] Address [address] [place] [address] Care Team Providers Care Theatrical Scenic Designer Name Role Phone Wilfred Haile MD Primary Care Provider [phone] Allergies No known active allergies Medications simvastatin [...] Ductal Carcinoma. All oncologic care done at [facility] Cancer center. Dr. Peters. ++ 06/2020. [facility] Oncology. Tamoxifen Completed. Mammograms have not [...] and SEVERE Stenosis at L4-5. ++ 04/2013. [facility]. Spinal Stenosis. Excellent Result. ++ [...] EF 50-55%. LVH 12 mm. ++ 12/2014. ECHO([facility]): EF 55%. Excellent. Osteoarthritis of hip 06/11/2010 Overview (07/04/2019): 2009. The right hip is the worst and most clinically troublesome. The left is also moderately arthritic but scant clinical Sx. ++ 09/2018. Endstage OA RIGHT. THR Needed. Dr. Zamarripa requested. +01/2019. Dr. Cal Barnes. [facility]. RIGHT THR. Vitamin B12 deficiency 06/11/2010 [...] ++ 12/2014. PAF. EPS Attending at the [facility]. Dr. Guzmán. Cardioversion. NSR. Assessment & Plan [...] on file Procedures * Due to [place] [employer] law, this organization might not be sharing negative HIV tests. Procedure Name Priority Date/Time Associated Diagnosis Comments BASIC METABOLIC PANEL Routine 12/31/2020 1:[address] CHEST WO CONTRAST Routine 09/26/2016 11:29 AM EST from Last 3 Months or Most Recently Relevant to Health Maintenance Results * Due to [place] [employer] law, this organization might not be sharing negative HIV tests. * Basic Metabolic Panel (12/31/2020 1:30 PM EDT) Glucose 81 65 - 139 mg/dL 12/31/2020 10:10 PM EDT [employer] Comment: ? Non-fasting reference interval BUN 15 7 - 25 mg/dL 12/31/2020 10:10 PM EDT Tagged Creatinine 1.12 0.70 - 1.18 mg/dL 12/31/2020 10:10 PM EDT [employer] Comment: For patients >49 years of age, the reference limit for Creatinine is approximately 13% higher for people identified as -St Helenian. eGFR Non- 63 > OR = 60 mL/min/1 .73m2 12/31/2020 10:10 PM EDT Tagged eGFR 73 > OR = 60 mL/min/1 .73m2 12/31/2020 10:10 PM EDT [facility] Bun/Creatinine Ratio NOT APPLICABLE 6 - (calc) 12/31/2020 10:10 PM EDT [facility] Sodium 137 135 - 146 mmol/L 12/31/2020 10:10 PM EDT [facility] Potassium 4.0 3.5 - 5.3 mmol/L 12/31/2020 10:10 PM EDT [facility] Chloride 102 98 - 110 mmol/L 12/31/2020 10:10 PM EDT [facility] Carbon Dioxide 27 20 - 32 mmol/L 12/31/2020 10:10 PM EDT [facility] Calcium 9.2 8.6 - 10.3 mg/dL 12/31/2020 10:10 PM EDT [facility] Blood Structure of peripheral vein / Unknown 12/31/2020 1:30 PM EDT 12/31/2020 9:09 PM EDT Narrative [facility] - 12/31/2020 11:11 PM EDT FASTING:NO us Ranjit Lainez MD LAB BLOOD ORDERABLES Fin al Result [facility] [address] [facility] 3[address], [place] [address], [facility] [address] [place] [address] * CT Chest WO Contrast (09/26/2016 11:29 [...] and agree with the resident's interpretation. WSN: [id number] Narrative 09/29/2016 1:12 PM EST EXAMINATION: Chest [...] and agree with the resident's interpretation. WSN: [id number] Ranjit Lainez MD IM CT PROCEDURES Final Result from Last 3 Months or Most Recently Relevant to Health Maintenance Insurance Advance Directives Documents on File Type Date Recorded Patient Tube Sorter Expl anation Health Care Proxy 01/03/2019 11:59 AM 12/07 Health Care Proxy 07/12/2010 12:00 AM 01/2010 Care Teams Theatrical Scenic Designer Relationship Specialty Start Date End Date Wilfred Haile MD [address] [place] [address] PCP - General Family Medicine 06/22/23
--- OUTSIDE RECORDS SUMMARY | 2024-12-12 13:13 | XMS_ITS | Clinical Summary ---
Author Organization [facility] Address [address] [place] [address] Care Team Providers Care Public Health Training Assistant Name Role Phone Wilfred Haile MD Primary Care Provider [phone] Allergies No known active allergies Medications simvastatin [...] Ductal Carcinoma. All oncologic care done at [facility] Cancer center. Dr. Peters. ++ 06/2020. [facility] Oncology. Tamoxifen Completed. Mammograms have [...] and SEVERE Stenosis at L4-5. ++ 04/2013. [facility]. Spinal Stenosis. Excellent Result. ++ [...] EF 50-55%. LVH 12 mm. ++ 12/2014. ECHO([facility]): EF 55%. Excellent. Osteoarthritis of hip 06/11/2010 Overview (07/04/2019): 2009. The right hip is the worst and most clinically troublesome. The left is also moderately arthritic but scant clinical Sx. ++ 09/2018. Endstage OA RIGHT. THR Needed. Dr. Zamarripa requested. +01/2019. Dr. Cal Barnes. [facility]. RIGHT THR. Vitamin B12 deficiency [...] ++ 12/2014. PAF. EPS Attending at the [facility]. Dr. Guzmán. Cardioversion. NSR. Assessment & Plan [...] 65 - 139 mg/dL 12/31/2020 10:10 PM [employer] Comment: ? Non-fasting reference interval BUN 15 7 - 25 mg/dL 12/31/2020 10:10 PM [employer] Creatinine 1.12 0.70 - 1.18 mg/dL 12/31/2020 10:10 PM [employer] Comment: For patients >49 years of age, the reference limit for Creatinine is approximately 13% higher for people identified as -Turkmen. eGFR Non- 63 > OR = 60 mL/min/1 .73m2 12/31/2020 10:[address] [facility] eGFR 73 > OR = 60 mL/min/1 .73m2 12/31/2020 10:[address] [facility] Bun/Creatinine Ratio NOT APPLICABLE 6 - 22 (calc) 12/31/2020 10:[address] [facility] Sodium 137 135 - 146 mmol/L 12/31/2020 10:[address] [facility] Potassium 4.0 3.5 - 5.3 mmol/L 12/31/2020 10:10 PM [employer] Chloride 102 98 - 110 mmol/L 12/31/2020 10:10 PM [employer] Carbon Dioxide 27 20 - 32 mmol/L 12/31/2020 10:10 PM [employer] Calcium 9.2 8.6 - 10.3 mg/dL 12/31/2020 10:[address] [facility] Blood Structure of peripheral vein / Unknown 12/31/2020 1:30 PM EDT 12/31/2020 9:09 PM EDT Narrative [facility] - 12/31/2020 11:11 PM EDT FASTING:NO us Ranjit Lainez MD LAB BLOOD ORDERABLES Fin al Result [facility] [address] [facility] [address] [place] [address], [place] [phone] [facility] [employer] [facility] [address] [place] [address] * CT Chest WO Contrast (09/26/2016 11:29 [...] and agree with the resident's interpretation. WSN: [id number] Narrative 09/29/2016 1:12 PM EST EXAMINATION: Chest [...] and agree with the resident's interpretation. WSN: [id number] us Ranjit Lainez MD IMG CT PROCEDURES Final Result from Last 3 Months or Most Recently Relevant to Health Maintenance Insurance Advance Directives Documents on File Type Date Recorded Patient Tissue Specialist Expl anation Health Care Proxy 01/03/2019 11:59 AM 12/07 Health Care Proxy 07/12/2010 12:00 AM 01/2010 Care Teams Public Health Training Assistant Relationship Specialty Start Date End Date Wilfred Haile MD [address] [place], [place] [phone] PCP - General Family Medicine 06/22/23
[2024-12-12 14:44] LABS: Anion Gap 11 (12-20)
[2024-12-12 14:46] LABS: Free T4 (Free Thyroxine) < 0.42 ng/dL (0.71-1.85); Thyroid Stimulating Hormone 81.63 uIU/mL (0.32-4.0)
[2024-12-12 14:48] LABS: Alanine Aminotransferase 31 U/L (0-40); Alkaline Phosphatase 81 U/L (39-117); Aspartate Amino Transferase 60 U/L (5-37); Bilirubin Total 0.5 mg/dL (0.0-1.0); Blood Urea Nitrogen 18 mg/dL (9-16); Calcium 9.3 mg/dL (8.4-10.2); Carbon Dioxide 28 mmol/L (22-29); Chloride 105 mmol/L (96-108); Estimated Glomerular Filt Rate 54; Glucose Random 81 mg/dL (60-115); Potassium 4.5 mmol/L (3.3-5.1); Sodium 139 mmol/L (135-145); Total Protein 7.2 g/dL (6.5-8.0)
[2024-12-12 16:31] LABS: Creatinine Urine 129.89 mg/dL; Microalbum/Creatinine Ratio Ur 97.7 ug/mg cr (<30)
[2024-12-13 03:04] LABS: Triiodothyronine T3 Total <25 ng/dL (76-181)
[2024-12-13 19:03] LABS: Thyroglobulin Antibodies <1 IU/mL (< or = 1)
[2024-12-13 19:08] LABS: Thyroid Peroxidase Antibodies <1 IU/mL (<9)
== END 2024-12-12 11:03 | disposition home or self-care (01) ==
LOC: HO.WFDLDS 11:02
PROVIDERS: Visit Provider Family Medicine
DX: E03.9 Hypothyroidism, unspecified (principal); I48.0 Paroxysmal atrial fibrillation; I10 Essential (primary) hypertension; I25.10 Atherosclerotic heart disease of native coronary artery without angina pectoris; R79.89 Other specified abnormal findings of blood chemistry
CPT/HCPCS: 36415; 80053; 82043; 82570; 84439; 84443; 84480; 86376; 86800; 99212

== ENCOUNTER 2025-01-11 09:22 | Outpatient (AMB) | payer MEDICARE, SELFPAY ==
--- NOTE | 2025-01-11 09:24 | A.OFFPC_ITS ---
Vital Signs 01/11/25 09:36 Height 5 ft 11 in Weight 196 lb 4 oz BMI 27.4 BP 132/70 Blood Pressure Location Rt brachial Position Sitting Respiration 14 Pulse 68 Pulse Source Pulse Oximeter Temp 97.5 F Temp Source Oral Pulse Oximetry (%) 97 Oxygen Delivery Method Room Air Intake Visit Reasons: f/u pre-diabetes, lipids, HTN Intake Note: patient is scheduled for A1c follow-up as well as lab review for lipid, HTN patient also wants to talk about thyroid meds Hydrologic Modeler Required: No Allergies No Known Allergies Allergy (Verified 01/11/25 09:30) Medication List - Last Reconciled 01/11/25 by Wilfred Haile MD amiodarone 200 mg orally; thursday/thu/thu aspirin 81 mg PO BID atorvastatin 40 mg PO QPM metoprolol tartrate 25 mg PO BID varenicline tartrate PO PER PKG DIR 28 days Tobacco use date assessed: 01/11/25 Fall risk assessment: No Falls in past year Last assessed Fall Risk: 01/11/25 Dental Screening Dental Screen Date: 01/11/25 Did you have a dental visit in the last 12 months?: No Did you have a dental problem in the last 6 months where you did not have access to dental care?: No Was dental information given to patient?: No HPI f/u pre-diabetes, lipids, HTN HPI Details 79 y/o male presents to f/u pre-diabetes , lipids, HTN. Labs drawn 12/12/24. Reviewed labs with pt. Ongoing elevated AST of 60. TSH 81.63 uIU/mL. Free T4 <0.42. Total T3 <25. BP today 132/70, 68p. He is on metoprolol 25mg b.i.d. Hx of paroxysmal AFib. He is on amiodarone and pt questions whether or not he can stay on this. Pt notes fatigue. HPI Comments History of Present Illness Details Documentation assistance for Wilfred Haile MD, was provided by Chao Hicks,? Meteorological Equipment Repairer on 01/11/2025 at 9:51 AM EST. I, Dr. Haile, have read, observed, and verified documentation. ?? [facility] Medical History (Updated 12/12/24 @ 10:23 by Chao Hicks) Screening for prostate cancer Screening for colon cancer Adult general medical exam Emphysema of lung Encounter for monitoring flecainide therapy Smoker History of atrial fibrillation Laboratory exam ordered as part of routine general medical examination PAF (paroxysmal atrial fibrillation) Hyperlipidemia History of cancer of right breast Personal history of nicotine dependence Surgical History History of cardioversion H/O colonoscopy History of right mastectomy History of total right hip arthroplasty History of back surgery Family History Paternal Grandfather Heart attack Mother Alzheimer disease Father Cancer Social History Housing: House Are you a primary child care development specialist to a significant other at home: No Do you presently have visiting nurse or other home services: No Alcohol intake: current Alcohol intake frequency: 0-2 drinks per day Comment: social Patient Tobacco Use Status: Current everyday Tobacco user Tobacco use type: Cigarette Cigarette Packs Per Day: 1 Cigarettes Per Day: 20.0 Years Smoked: onset 13, 1ppd x 63yrs, 60PYH e-Cigarette/Vaping Use: Never Used Second Hand Smoke Exposure: Yes service: Yes Current occupational status: retired Cognitive needs: No Hearing needs: No Vision needs: Yes (wears glasses) Questionnaire PHQ-9 Over the last 2 weeks, how often have you been bothered by any of the following problems? 1. Little interest or pleasure in doing things: not at all 2. Feeling down, depressed, or hopeless: not at all 3. Trouble falling or staying asleep, or sleeping too much: not at all 4. Feeling tired or having little energy: not at all 5. Poor appetite or overeating: not at all 6. Feeling bad about yourself - or that you are a failure or have let yourself or your family down: not at all 7. Trouble concentrating on things, such as reading the newspaper or watching television: not at all 8. Moving or speaking so slowly that other people could have noticed. Or the opposite - being so fidgety or restless that you have been moving around a lot more than usual: not at all 9. Thoughts that you would be better off or of hurting yourself in some way: not at all Total score: 0 Depression Screening Interpretation: Negative Depression Screening Done: Yes 31431 - PHQ-9 Billing: Yes Source: Developed by Drs. Daniel St, Irasema Rios, Henry Soria and colleagues, with an educational mercedez from [employer]. Thrive Questionnaire Date Thrive assessed: 01/11/25 I am a: Patient What is your living situation today?: I have a steady place to live Within the past 12 months, did the food you bought not last and you didn't have the money to get more?: Never true Within the past 12 months, did you worry whether your food would run out before you got money to buy more?: Never true Do you have trouble paying for medicines?: Yes Do you have trouble getting transportation to medical appointments?: No Do you have trouble paying your heating and electricity bill?: No Do you have trouble taking care of your child, family member or friend?: No Do you have trouble with day-to-day activities such as bathing, preparing meals, shopping, managing finances, etc.?: No Are you currently unemployed and looking for a job?: No Are you interested in more education?: No Please select the resources that you would like help with: None Currently or been in a relationship where the following occur: No concerns reported THRIVE Score: 0 NANCY-7 AMB Questionnaire NANCY-7 Date NANCY - 7 assessed: 01/11/25 Feeling nervous, anxious, or on edge: 0 = Not at all Not being able to stop or control worryin = Not at all Worrying too much about different things: 0 = Not at all Trouble relaxin = Not at all Being so restless that it is hard to sit still: 0 = Not at all Becoming easily annoyed or irritable: 0 = Not at all Feeling afraid as if something awful might happen: 0 = Not at all Total NANCY-7 score (0-4 normal; 5-9 mild; 10-14 moderate; 15-21 severe): 0 Source: Developed by Drs. Daniel St, Henry Baker and colleagues, with an educational mercedez from [employer]. NANCY-7 Assessment Billing NANCY-7 Assessment Tool: NANCY-7 Assessment 74872 Review of Systems Const Denies chills, Denies fatigue, Denies fever(s), Denies headache(s) and Denies weakness ENT Denies dizziness and Denies headache(s) Card Denies dyspnea Resp Denies cough, Denies dyspnea, Denies wheezing and Denies other (shortness of breath) Musc Denies numbness and Denies tingling Neuro Denies dizziness, Denies headache(s), Denies numbness, Denies tingling and Denies weakness Psych Denies anxiety and Denies depression Endo Denies fatigue Aller/Immun Denies wheezing Physical exam (Primary Care) Vital Signs: Last Vital Signs Temp 97.5 F 01/11/25 09:36 Pulse 68 01/11/25 09:36 Resp 14 01/11/25 09:36 BP 132/70 01/11/25 09:36 Pulse Ox 97 01/11/25 09:36 Oxygen Delivery Method Room Air 01/11/25 09:36 BMI result Body Mass Index 27.4 Tobacco/Smoking Status: Tobacco use Status Tobacco use date assessed 01/11/25 01/11/25 09:35 Patient Tobacco Use Status Current everyday Tobacco 01/11/25 09:24 Tobacco use type Cigarette 01/11/25 09:24 e-Cigarette/Vaping Use Never Used 01/11/25 09:24 PHQ-9: PHQ-9 Score PHQ-9: Total score 0 01/11/25 09:51 Depression Screening Interpretation: Negative Thrive Assessment: Date of Thrive Assessment Date Thrive assessed 01/11/25 01/11/25 09:35 Currently or been in a relationship where the following occur: No concerns reported Const General: well developed; No acute distress Nutritional Appearance: well nourished Orientation/consciousness: patient oriented x3 HENMT Head: Yes normocephalic and Yes atraumatic Eyes General: appearance normal, both eyes and all related structures Pupils: Equal, round and reactive pupils present EOM: EOMs intact bilaterally Resp Effort & Inspection: normal respiratory effort Neuro General: patient oriented x3 and gait normal Cranial nerves: Yes Equal, round and reactive pupils present Psych Affect: normal affect Coding Level of Care Code Est Pt Level 4 (06206) Diagnoses Hypertension I10 Elevated AST (SGOT) R74.01 Elevated TSH R79.89 PAF (paroxysmal atrial fibrillation) I48.0 Personal history of nicotine dependence Z87.891 Additional Codes NANCY-7 Assessment Billing - NANCY-7 Assessment Tool: NANCY-7 Assessment 31805 ([id number]) PHQ-9 - 38506 - PHQ-9 Billing: Yes ([id number]) Assessment & Plan Assessment & Plan (1) Hypertension: Code(s): I10 - Essential (primary) hypertension Category: Medical Plan: Blood?pressure?is?fairly?well?controlled.??Goal?is?less?than?130/80 Continue?current?medications (2) Elevated AST (SGOT): Code(s): R74.01 - Elevation of levels of liver transaminase levels Category: Medical Plan: Mild?AST?liver?elevation?though?this?has?increased?slightly Discussed?imaging?but?patient?declines?this?for?now. Will?continue?monitor?and?advise?patient Encouraged?good?hydration?and?weight?control. ?Avoid?alcohol?and?moderate?Tylenol?use. (3) Elevated TSH: Code(s): R79.89 - Other specified abnormal findings of blood chemistry Category: Medical Plan: Ongoing?elevated?TSH?level. He?has?an?appointment?with?endocrinology?next?month (4) PAF (paroxysmal atrial fibrillation): Code(s): I48.0 - Paroxysmal atrial fibrillation Category: Medical Plan: Currently?has?regular?rhythm?and?he?is?on?amiodarone. Patient?is?unhappy?with?amiodarone?and?would?like?to?discontinue?this.??He?says? he?is?reached?out?to?his?core rescuer?and?has?not?heard?back?yet. Patient?says?he ?was?on?flecainide?in?the?past?without?any?problems?in?would?like?to?use?this?in stead. Will?try?to inquire?with?his?core rescuer?regarding?alternative?medications?for him. (5) Personal history of nicotine dependence: Comment: (current smoker, onset 13, 1ppd x 63yrs, 60PYH) Code(s): Z87.891 - Personal history of nicotine dependence Category: Medical Plan: Patient?had?low-dose?CT?screening?last?year?which?showed?stable?nodule. He?should?continue?annual?screening He?would?like?to?try?Chantix?which?I?have?sent?today Orders: Orders Lipid Panel Today E78.5 - Hyperlipidemia, unspecified, Z00.00 - Encounter for general adult medical examination without abnormal findings Comprehensive [place]. Panel Fast Today E78.5 - Hyperlipidemia, unspecified, Z00.00 - Encounter for general adult medical examination without abnormal findings Medications: New varenicline tartrate PO PER PKG DIR 28 days 53 ea 3RF
[2025-01-11 09:36] VITALS: BP 132/70; PULSE 68; RESP 14; TEMP 36.4; O2SAT 97; BMI 27.4
--- OUTSIDE RECORDS SUMMARY | 2025-01-11 10:06 | XMS_ITS | Referral Summary ---
Author Organization [facility] Address [address] [place] [address] Care Team Providers Care Maintainability Engineer Name Role Phone Wilfred Haile MD Primary Care Provider [phone] Allergies No known active allergies Medications simvastatin [...] Ductal Carcinoma. All oncologic care done at [facility] Cancer center. Dr. Peters. ++ 06/2020. [facility]. Tamoxifen Completed. Mammograms have [...] and SEVERE Stenosis at L4-5. ++ 04/2013. [facility]. Spinal Stenosis. Excellent Result. ++ [...] EF 50-55%. LVH 12 mm. ++ 12/2014. ECHO([place]): EF 55%. Excellent. Osteoarthritis of hip 06/11/2010 Overview (07/04/2019): 2009. The right hip is the worst and most clinically troublesome. The left is also moderately arthritic but scant clinical Sx. ++ 09/2018. Endstage OA RIGHT. THR Needed. Dr. Zamarripa requested. +01/2019. Dr. Cal Barnes. [facility]. RIGHT THR. Vitamin B12 deficiency 06/11/2010 Overview [...] ++ 12/2014. PAF. EPS Attending at the [place]. Dr. Guzmán. Cardioversion. NSR. Assessment & Plan [...] on file Procedures * Due to [place] marshallindex law, this organization might not be sharing negative HIV tests. Procedure Name Priority Date/Time Associated Diagnosis Comments BASIC METABOLIC PANEL Routine 12/31/2020 1:[address] CHEST WO CONTRAST Routine 09/26/2016 11:29 AM EST from Last 3 Months or Most Recently Relevant to Health Maintenance Results * Due to [place] marshallindex law, this organization might not be sharing negative HIV tests. * Basic Metabolic Panel (12/31/2020 1:30 PM EDT) Glucose 81 65 - 139 mg/dL 12/31/2020 10:10 PM EDT [facility] Comment: ? Non-fasting reference interval BUN 15 7 - 25 mg/dL 12/31/2020 10:10 PM EDT [facility] Creatinine 1.12 0.70 - 1.18 mg/dL 12/31/2020 10:10 PM EDT [facility] Comment: For patients >49 years of age, the reference limit for Creatinine is approximately 13% higher for people identified as -Rwandan. eGFR Non- 63 > OR = 60 mL/min/1 .73m2 12/31/2020 10:10 PM EDT [facility] eGFR 73 > OR = 60 mL/min/1 .73m2 12/31/2020 10:10 PM EDT [facility] Bun/Creatinine Ratio NOT APPLICABLE 6 - (calc) 12/31/2020 10:10 PM EDT [facility] Sodium 137 135 - 146 mmol/L 12/31/2020 10:10 PM EDT [facility] Potassium 4.0 3.5 - 5.3 mmol/L 12/31/2020 10:10 PM EDT [facility] Chloride 102 98 - 110 mmol/L 12/31/2020 10:10 PM EDT [facility] Carbon Dioxide 27 20 - 32 mmol/L 12/31/2020 10:10 PM EDT [facility] Calcium 9.2 8.6 - 10.3 mg/dL 12/31/2020 10:10 PM EDT [facility] Blood Structure of peripheral vein / Unknown 12/31/2020 1:30 PM EDT 12/31/2020 9:09 PM EDT Narrative [facility] - 12/31/2020 11:11 PM EDT FASTING:NO us Ranjit Lainez MD LAB BLOOD ORDERABLES Fin al Result [facility] [address] [address], [place] [address], [facility] [address] [place] [address] * CT Chest WO Contrast (09/26/2016 11:29 [...] and agree with the resident's interpretation. WSN: [id number] Narrative 09/29/2016 1:12 PM EST EXAMINATION: Chest [...] and agree with the resident's interpretation. WSN: [id number] Ranjit Lainez MD IM CT PROCEDURES Final Result from Last 3 Months or Most Recently Relevant to Health Maintenance Insurance Advance Directives Documents on File Type Date Recorded Patient Data Entry Machine Operator Expl anation Health Care Proxy 01/03/2019 11:59 AM 12/07 Health Care Proxy 07/12/2010 12:00 AM 01/2010 Care Teams Maintainability Engineer Relationship Specialty Start Date End Date Wilfred Haile MD [address] [place] [address] PCP - General Family Medicine 06/22/23
--- OUTSIDE RECORDS SUMMARY | 2025-01-11 10:06 | XMS_ITS | Clinical Summary ---
Author Organization [facility] Address [address] [place] [address] Care Team Providers Care Electrical Research Engineer Name Role Phone Wilfred Haile MD Primary Care Provider [phone] Allergies No known active allergies Medications simvastatin [...] All oncologic care done at [facility] Cancer center. Dr. Peters. ++ 06/2020. [facility] [...] and SEVERE Stenosis at L4-5. ++ 04/2013. [facility]. Spinal Stenosis. Excellent Result. ++ [...] EF 50-55%. LVH 12 mm. ++ 12/2014. ECHO([place]): EF 55%. Excellent. Osteoarthritis of hip 06/11/2010 Overview (07/04/2019): 2009. The right hip is the worst and most clinically troublesome. The left is also moderately arthritic but scant clinical Sx. ++ 09/2018. Endstage OA RIGHT. THR Needed. Dr. Zamarripa requested. +01/2019. Dr. Cal Barnes. [facility]. RIGHT THR. Vitamin B12 deficiency 06/11/2010 Overview [...] ++ 12/2014. PAF. EPS Attending at the [place]. Dr. Guzmán. Cardioversion. NSR. Assessment & Plan [...] 65 - 139 mg/dL 12/31/2020 10:10 PM [facility] Comment: ? Non-fasting reference interval BUN 15 7 - 25 mg/dL 12/31/2020 10:10 PM [facility] Creatinine 1.12 0.70 - 1.18 mg/dL 12/31/2020 10:10 PM [facility] Comment: For patients >49 years of age, the reference limit for Creatinine is approximately 13% higher for people identified as -Montenegrin. eGFR Non- 63 > OR = 60 mL/min/1 .73m2 12/31/2020 10:10 PM [employer] [employer] [facility] eGFR 73 > OR = 60 mL/min/1 .73m2 12/31/2020 10:10 PM [employer] [facility] Bun/Creatinine Ratio NOT APPLICABLE 6 - 22 (calc) 12/31/2020 10:10 PM [employer] [facility] Sodium 137 135 - 146 mmol/L 12/31/2020 10:10 PM [employer] [facility] Potassium 4.0 3.5 - 5.3 mmol/L 12/31/2020 10:10 PM [facility] Chloride 102 98 - 110 mmol/L 12/31/2020 10:10 PM [facility] Carbon Dioxide 27 20 - 32 mmol/L 12/31/2020 10:10 PM [facility] Calcium 9.2 8.6 - 10.3 mg/dL 12/31/2020 10:10 PM [employer] [facility] Blood Structure of peripheral vein / Unknown 12/31/2020 1:30 PM EDT 12/31/2020 9:09 PM EDT Narrative [facility] - 12/31/2020 11:11 PM EDT FASTING:NO us Ranjit Lainez MD LAB BLOOD ORDERABLES Fin al Result [facility] [address] [facility] [address], [place] [address], [place] [phone] [employer] [facility] [address] [place] [address] * CT Chest WO Contrast (09/26/2016 11:29 [...] and agree with the resident's interpretation. WSN: [id number] Narrative 09/29/2016 1:12 PM EST EXAMINATION: Chest [...] and agree with the resident's interpretation. WSN: [id number] us Ranjit Lainez MD IMG CT PROCEDURES Final Result from Last 3 Months or Most Recently Relevant to Health Maintenance Insurance Advance Directives Documents on File Type Date Recorded Patient Composition Siding Worker Expl anation Health Care Proxy 01/03/2019 11:59 AM 12/07 Health Care Proxy 07/12/2010 12:00 AM 01/2010 Care Teams Electrical Research Engineer Relationship Specialty Start Date End Date Wilfred Haile MD [address] [place], [place] [id number] PCP - General Family Medicine 06/22/23
== END 2025-01-11 10:23 | disposition home or self-care (01) ==
LOC: HO.HMCFM 09:23
PROVIDERS: PCP Family Medicine; Visit Provider Family Medicine
DX: I10 Essential (primary) hypertension (principal); R74.01 Elevation of levels of liver transaminase levels; R79.89 Other specified abnormal findings of blood chemistry; I48.0 Paroxysmal atrial fibrillation; Z87.891 Personal history of nicotine dependence

== ENCOUNTER → 2025-01-11 09:22 | Outpatient (BNVA) | payer MEDICARE, SELFPAY | PROVIDERS: PCP Family Medicine; Visit Provider Family Medicine | DX: I10 Essential (primary) hypertension (principal); R74.01 Elevation of levels of liver transaminase levels; R94.6 Abnormal results of thyroid function studies; I48.0 Paroxysmal atrial fibrillation; Z87.891 Personal history of nicotine dependence | CPT/HCPCS: 96127; 99212 ==

== ENCOUNTER 2025-02-20 08:01 | Outpatient (REF) | payer MEDICARE, SELFPAY ==
--- OUTSIDE RECORDS SUMMARY | 2025-02-20 08:06 | XMS_ITS | Clinical Summary ---
Author Organization [facility] Address [address] [place] [address] Care Team Providers Care Vegetable Farmworker Name Role Phone Wilfred Haile MD Primary Care Provider [phone] Allergies No known active allergies Medications simvastatin [...] Ductal Carcinoma. All oncologic care done at [facility] Cancer center. Dr. Peters. ++ [...] and SEVERE Stenosis at L4-5. ++ 04/2013. [facility]. Spinal Stenosis. Excellent Result. ++ [...] EF 50-55%. LVH 12 mm. ++ 12/2014. ECHO([place]): EF 55%. Excellent. Osteoarthritis of hip 06/11/2010 Overview (07/04/2019): 2009. The right hip is the worst and most clinically troublesome. The left is also moderately arthritic but scant clinical Sx. ++ 09/2018. Endstage OA RIGHT. THR Needed. Dr. Zamarripa requested. +01/2019. Dr. Cal Barnes. [facility]. RIGHT THR. Vitamin B12 deficiency [...] ++ 12/2014. PAF. EPS Attending at the [place]. Dr. Guzmán. Cardioversion. NSR. Assessment & Plan [...] 65 - 139 mg/dL 12/31/2020 10:10 PM [employer] [facility] Comment: ? Non-fasting reference interval BUN 15 7 - 25 mg/dL 12/31/2020 10:10 PM [facility] Creatinine 1.12 0.70 - 1.18 mg/dL 12/31/2020 10:10 PM [facility] Comment: For patients >49 years of age, the reference limit for Creatinine is approximately 13% higher for people identified as -Polish. eGFR Non- 63 > OR = 60 mL/min/1 .73m2 12/31/2020 10:10 PM [employer] [facility] eGFR 73 > OR = 60 mL/min/1 .73m2 12/31/2020 10:10 PM [employer] [facility] Bun/Creatinine Ratio NOT APPLICABLE 6 - 22 (calc) 12/31/2020 10:10 PM [employer] [facility] Sodium 137 135 - 146 mmol/L 12/31/2020 10:10 PM [employer] [facility] Potassium 4.0 3.5 - 5.3 mmol/L 12/31/2020 10:10 PM [facility] Chloride 102 98 - 110 mmol/L 12/31/2020 10:10 PM [facility] Carbon Dioxide 27 20 - 32 mmol/L 12/31/2020 10:10 PM [facility] Calcium 9.2 8.6 - 10.3 mg/dL 12/31/2020 10:10 PM [employer] [facility] Blood Structure of peripheral vein / Unknown 12/31/2020 1:30 PM EDT 12/31/2020 9:09 PM EDT Narrative [facility] - 12/31/2020 11:11 PM EDT FASTING:NO us Ranjit Lainez MD LAB BLOOD ORDERABLES Fin al Result [facility] [address] [facility] [address], [place] [address], [place] [phone] [employer] [facility] [address] [place] [address] * CT Chest WO Contrast (09/26/2016 11:29 [...] and agree with the resident's interpretation. WSN: [id number] Narrative 09/29/2016 1:12 PM EST EXAMINATION: Chest [...] and agree with the resident's interpretation. WSN: [id number] us Ranjit Lainez MD IMG CT PROCEDURES Final Result from Last 3 Months or Most Recently Relevant to Health Maintenance Insurance Advance Directives Documents on File Type Date Recorded Patient Char Filter Tank Tender Expl anation Health Care Proxy 01/03/2019 11:59 AM 12/07 Health Care Proxy 07/12/2010 12:00 AM 01/2010 Care Teams Vegetable Farmworker Relationship Specialty Start Date End Date Wilfred Haile MD [address] [place], [place] [phone] PCP - General Family Medicine 06/22/23
[2025-02-20 11:45] LABS: Alanine Aminotransferase 42 U/L (0-40); Albumin Level 4.1 g/dL (3.5-5.0); Alkaline Phosphatase 90 U/L (39-117); Anion Gap 11 (12-20); Aspartate Amino Transferase 70 U/L (5-37); Bilirubin Total 0.4 mg/dL (0.0-1.0); Blood Urea Nitrogen 19 mg/dL (9-16); Calcium 9.1 mg/dL (8.4-10.2); Carbon Dioxide 29 mmol/L (22-29); Chloride 104 mmol/L (96-108); Cholesterol 161 mg/dL (<200); Estimated Glomerular Filt Rate 50; Glucose Fasting 87 mg/dL (60-99); HDL Cholesterol 70 mg/dL (>40); LDL Cholesterol Calculated 74 mg/dL (<100); Potassium 4.7 mmol/L (3.3-5.1); Sodium 139 mmol/L (135-145); Triglycerides 89 mg/dL (<150)
[2025-02-20 11:57] LABS: Free T4 (Free Thyroxine) 0.44 ng/dL (0.71-1.85)
[2025-02-20 12:02] LABS: Thyroid Stimulating Hormone 82.06 uIU/mL (0.32-4.0)
[2025-02-21 04:13] LABS: Triiodothyronine T3 Total <25 ng/dL (76-181)
== END 2025-02-20 08:02 | disposition home or self-care (01) ==
LOC: HO.WFDLDS 08:01
PROVIDERS: Referring Provider Family Medicine; Visit Provider Student in an Organized Health Care Education/Training Program
DX: Z00.00 Encounter for general adult medical examination without abnormal findings (principal); R79.89 Other specified abnormal findings of blood chemistry; E78.5 Hyperlipidemia, unspecified
CPT/HCPCS: 36415; 80053; 80061; 84439; 84443; 84480

== ENCOUNTER 2025-02-21 13:48 | Outpatient (AMB) | payer MEDICARE, SELFPAY ==
[2025-02-21 13:52] VITALS: BP 148/78; BMI 27.4
--- NOTE | 2025-02-21 13:52 | A.OFFVIS_ITS ---
Vital Signs 02/21/25 13:52 Height 5 ft 11 in Weight 196 lb 10.437 oz BMI 27.4 BP 148/78 H Blood Pressure Location Lt brachial Position Sitting Intake Visit Reasons: Elevated TSH Intake Note: New patient present today for Elevated TSH. [employer] Required: No Accompanied by: Self / Same As Patient Allergies No Known Allergies Allergy (Verified 02/21/25 13:57) Medication List - Last Reconciled 02/21/25 by Aminata Rodriguez MD amiodarone 200 mg orally; thursday/ aspirin 81 mg PO BID atorvastatin 40 mg PO QPM metoprolol tartrate 25 mg PO BID varenicline tartrate PO PER PKG DIR 28 days HPI Comments Details: 79-year-old male coming in today for initial evaluation of hypothyroidism. 14 years ago developed PAF Was on coumadin for some years then stopped 10 years ago Was following with cards , started on sotalol, then switched to flecanide for some years, then established with a new instructional manager, amiodarone for the past 6- 8 months on 200 mg Thursday. , He had normal thyroid function up until 2022. Labs in November 2024 showed TSH elevated at 77.93, free T4 low at 0.42. Most recent labs repeated 02/20/2025 again showed TSH elevated at 82.06 with a free T4 low at 0.44, total T3 also undetectable. Reports fatigue, reports cold intolerance. no constipation. weight stable. no tremors. ? Patient denies any difficulty swallowing, pain on swallowing or voice changes or difficulty breathing. Patient denies any history of childhood neck radiation. Denies having ever used lithium, amiodarone or biotin supplements. Daughter: thyroid cancer now healthy at 50 years smoker 60 pack years alcohol: 2 drinks per day no drug use retired from [employer] Physical exam General: sitting comfortably in no acute distress HEENT: normocephalic/atraumatic, Neck: supple, symmetrical, no thyromegaly , no dorsocervical or supraclavicular fat pads Cardiac: normal heart sounds Pulm: normal breath sounds B/L, no added breath sounds Abd: not distended, no tenderness Extremities: no edema, no signs of myxedema Laboratory Tests 05/22/23 06/01/23 11/30/24 10:55 10:15 07:55 TSH < 0.01 L 1.25 77.93 H Free T4 0.86 0.86 < 0.42 L Total T3 81 Thyroglobulin Antibody Thyroid Peroxidase Ab 12/12/24 02/20/25 11:04 08:04 TSH 81.63 H 82.06 H Free T4 < 0.42 L 0.44 L Total T3 <25 L <25 L Thyroglobulin Antibody <1 Thyroid Peroxidase Ab <1 PFSH Medical History (Updated 02/21/25 @ 14:56 by Aminata Rodriguez MD) Hypothyroidism Screening for prostate cancer Screening for colon cancer Adult general medical exam Emphysema of lung Encounter for monitoring flecainide therapy Smoker History of atrial fibrillation Laboratory exam ordered as part of routine general medical examination PAF (paroxysmal atrial fibrillation) Hyperlipidemia History of cancer of right breast Personal history of nicotine dependence Surgical History History of cardioversion H/O colonoscopy History of right mastectomy History of total right hip arthroplasty History of back surgery Family History Paternal Grandfather Heart attack Mother Alzheimer disease Father Cancer Social History Housing: House Are you a primary care technician to a significant other at home: No Do you presently have visiting nurse or other home services: No Alcohol intake: current Alcohol intake frequency: 0-2 drinks per day Comment: social Patient Tobacco Use Status: Current everyday Tobacco user Tobacco use type: Cigarette Cigarette Packs Per Day: 1 Cigarettes Per Day: 20.0 Years Smoked: onset 13, 1ppd x 63yrs, 60PYH e-Cigarette/Vaping Use: Never Used Second Hand Smoke Exposure: Yes service: Yes Current occupational status: retired Cognitive needs: No Hearing needs: No Vision needs: Yes (wears glasses) Physical Exam Vital Signs: Last Vital Signs BP 148/78 H 02/21/25 13:52 BMI result Body Mass Index 27.4 Assessment & Plan Assessment & Plan (1) Hypothyroidism: Code(s): E03.9 - Hypothyroidism, unspecified Category: Medical Qualifiers: Hypothyroidism type: due to medication Qualified Code(s): E03.2 - Hypothyroidism due to medicaments and other exogenous substances Plan: 79-year-old male coming in today for initial evaluation of hypothyroidism. Diagnosed in November 2024 and he was noted to have TSH elevated at 77.93, free T4 low at 0.42. Most recent labs repeated 02/20/2025 again showed TSH elevated at 82.06 with a free T4 low at 0.44, total T3 also undetectable. He has been on amiodarone for the past 6-8 months. The common pattern observed in euthyroid patient is is high free T4 and total T4, low normal T3 and high reverse T3 and high normal TSH, these changes tend to persist over time although serum TSH values me gradually normalize in some patients. This is usually the case in euthyroid patients. About 10-20% of the patients taking amiodarone develop amiodarone induced hypothyroidism. Patient's labs are consistent with this diagnosis. TPO antibodies are negative hence not Makenna's thyroiditis. I explained to the patient that he can be continued on amiodarone from my standpoint and we will treat the hypothyroidism. At this time we will start him on levothyroxine, I will start him on a low dose given his age. Plus history of arrhythmias. We will slowly up titrate depending on thyroid function tests. Discussed appropriate administration of levothyroxine. Plan: -start levothyroxine 50 mcg daily -ordered TSH and free T4 to be done in 6 weeks, we will reach out with the results -follow up in 3 months Plan I spent 45 minutes in reviewing the record, seeing the patient and documenting in the medical record. Medications: New levothyroxine 50 mcg PO DAILY 30 tabs 6RF Patient Instructions: Start levothyroxine 50 mcg daily Please take this first thing in the morning on an empty stomach and wait an hour before you eat breakfast or drink coffee or tea Do blood work in 6 weeks we will reach out with results Follow up in May 2025 Coding Level of Care Code New Pt Level 4 (34294) Diagnoses Hypothyroidism due to medication E03.2 Hypothyroidism type: due to medication Time Spent (min) 45
--- OUTSIDE RECORDS SUMMARY | 2025-02-21 15:48 | XMS_ITS | Clinical Summary ---
Author Organization [facility] Address [address] [place] [address] Care Team Providers Care Drawing Hand Name Role Phone Wilfred Haile MD Primary Care Provider [phone] Allergies No known active allergies Medications simvastatin [...] Ductal Carcinoma. All oncologic care done at [facility] Cancer center. Dr. Peters. ++ 06/2020. [facility] [...] and SEVERE Stenosis at L4-5. ++ 04/2013. [facility]. Spinal Stenosis. Excellent Result. ++ [...] EF 50-55%. LVH 12 mm. ++ 12/2014. ECHO([place]): EF 55%. Excellent. Osteoarthritis of hip 06/11/2010 Overview (07/04/2019): 2009. The right hip is the worst and most clinically troublesome. The left is also moderately arthritic but scant clinical Sx. ++ 09/2018. Endstage OA RIGHT. THR Needed. Dr. Zamarripa requested. +01/2019. Dr. Cal Barnes. [facility]. RIGHT THR. Vitamin B12 deficiency 06/11/2010 Overview [...] ++ 12/2014. PAF. EPS Attending at the [place]. Dr. Guzmán. Cardioversion. NSR. Assessment & Plan [...] complete this topic Procedures * Due to [place] state law, this organization might not be sharing negative HIV tests. Procedure Name Priority Date/Time Associated Diagnosis Comments BASIC METABOLIC PANEL Routine 12/31/2020 1:[address] CHEST WO CONTRAST Routine 09/26/2016 11:29 AM EST from Last 3 Months or Most Recently Relevant to Health Maintenance Results * Due to [place] state law, this organization might not be sharing negative HIV tests. * Basic Metabolic Panel (12/31/2020 1:30 PM EDT) Glucose 81 65 - 139 mg/dL 12/31/2020 10:10 PM [employer] Comment: ? Non-fasting reference interval BUN 15 7 - 25 mg/dL 12/31/2020 10:10 PM [employer] Creatinine 1.12 0.70 - 1.18 mg/dL 12/31/2020 10:10 PM [employer] Comment: For patients >49 years of age, the reference limit for Creatinine is approximately 13% higher for people identified as -[place]. eGFR Non- 63 > OR = 60 mL/min/1 .73m2 12/31/2020 10:10 PM [facility] eGFR 73 > OR = 60 mL/min/1 .73m2 12/31/2020 10:10 PM [facility] Bun/Creatinine Ratio NOT APPLICABLE 6 - 22 (calc) 12/31/2020 10:10 PM [facility] Sodium 137 135 - 146 mmol/L 12/31/2020 10:10 PM [facility] Potassium 4.0 3.5 - 5.3 mmol/L 12/31/2020 10:10 PM [employer] Chloride 102 98 - 110 mmol/L 12/31/2020 10:10 PM [employer] Carbon Dioxide 27 20 - 32 mmol/L 12/31/2020 10:10 PM [employer] Calcium 9.2 8.6 - 10.3 mg/dL 12/31/2020 10:10 PM [facility] Blood Structure of peripheral vein / Unknown 12/31/2020 1:30 PM EDT 12/31/2020 9:09 PM EDT Narrative [facility] - 12/31/2020 11:11 PM EDT FASTING:NO us Ranjit Lainez MD LAB BLOOD ORDERABLES Fin al Result [facility] [address], [place] [address], [place] [phone] [facility] [address] [place] [address] * CT Chest WO Contrast (09/26/2016 11:29 [...] and agree with the resident's interpretation. WSN: [id number] Narrative 09/29/2016 1:12 PM EST EXAMINATION: Chest [...] and agree with the resident's interpretation. WSN: [id number] us Ranjit Lainez MD IMG CT PROCEDURES Final Result from Last 3 Months or Most Recently Relevant to Health Maintenance Insurance Advance Directives Documents on File Type Date Recorded Patient Assistant Professor Of Biochemistry Expl anation Health Care Proxy 01/03/2019 11:59 AM 12/07 Health Care Proxy 07/12/2010 12:00 AM 01/2010 Care Teams Drawing Hand Relationship Specialty Start Date End Date Wilfred Haile MD [address], [place] [id number] PCP - General Family Medicine 06/22/23
== END 2025-02-21 14:52 | disposition home or self-care (01) ==
LOC: HO.ENCR 13:49
PROVIDERS: PCP Family Medicine; Visit Provider Student in an Organized Health Care Education/Training Program
DX: E03.2 Hypothyroidism due to medicaments and other exogenous substances (principal)
CPT/HCPCS: 99204

== ENCOUNTER → 2025-02-21 13:48 | Outpatient (BNVA) | payer MEDICARE, SELFPAY | PROVIDERS: PCP Family Medicine; Visit Provider Student in an Organized Health Care Education/Training Program | DX: E03.2 Hypothyroidism due to medicaments and other exogenous substances (principal) | CPT/HCPCS: 99202 ==

== ENCOUNTER 2025-03-02 13:52 | Outpatient (AMB) | payer MEDICARE, SELFPAY ==
--- NOTE | 2025-03-02 14:09 | A.OFFVIS_ITS ---
Vital Signs 03/02/25 14:10 Height 5 ft 11 in Weight 185 lb 3.013 oz BMI 25.8 BP 118/60 Blood Pressure Location Lt brachial Position Sitting Pulse 46 L Pulse Source Monitor Intake Visit Reasons: Follow-up PAF Allergies No Known Allergies Allergy (Verified 02/21/25 13:57) Medication List - Last Reconciled 03/02/25 by John Velazquez MD amiodarone 200 mg orally; thursday/thu/thu aspirin 81 mg PO BID atorvastatin 40 mg PO QPM levothyroxine 50 mcg PO DAILY metoprolol tartrate 25 mg PO BID varenicline tartrate PO PER PKG DIR 28 days HPI Comments Details: Rambo returns for follow-up. To recall, he was previously followed at [facility]. Has a history of atrial fibrillation and underwent GERRI/cardioversion many years ago. He was maintained on flecainide. Was not on anticoagulation by his own choice. Last year, he underwent echocardiogram and that showed inferior wall motion abnormality and we stopped the Flecainide and switched him to beta-blockers. Then he came for a stress test and at that time he went into atrial fibrillation during the ETT. Then sent to ER and he received flecainide and converted to sinus rhythm. After that, switched to Multaq, but he still had atrial fibrillation and hence he is on amiodarone. He also underwent perfusion imaging showing inferior findings. More recently, main issues hypothyroidism and he wants to come off the amiodarone. Otherwise he does not really have any overt cardiac symptoms. He states he feels fine. With regard to anticoagulation, he stopped taking Eliquis because of financial reasons. He does not want to go back on anticoagulation this has been discussed many times in the past. He does not want any Coumadin either. [facility] Medical History (Updated 02/21/25 @ 14:56 by Aminata Rodriguez MD) Hypothyroidism Screening for prostate cancer Screening for colon cancer Adult general medical exam Emphysema of lung Encounter for monitoring flecainide therapy Smoker History of atrial fibrillation Laboratory exam ordered as part of routine general medical examination PAF (paroxysmal atrial fibrillation) Hyperlipidemia History of cancer of right breast Personal history of nicotine dependence Surgical History History of cardioversion H/O colonoscopy History of right mastectomy History of total right hip arthroplasty History of back surgery Family History Paternal Grandfather Heart attack Mother Alzheimer disease Father Cancer Social History Housing: House Are you a primary adult day care worker to a significant other at home: No Do you presently have visiting nurse or other home services: No Alcohol intake: current Alcohol intake frequency: 0-2 drinks per day Comment: social Patient Tobacco Use Status: Current everyday Tobacco user Tobacco use type: Cigarette Cigarette Packs Per Day: 1 Cigarettes Per Day: 20.0 Years Smoked: onset 13, 1ppd x 63yrs, 60PYH e-Cigarette/Vaping Use: Never Used Second Hand Smoke Exposure: Yes service: Yes Current occupational status: retired Cognitive needs: No Hearing needs: No Vision needs: Yes (wears glasses) Review of Systems Const Denies weakness ENT Denies dizziness Card Denies chest pain, Denies chest pain with activity, Denies syncope, Denies rapid heart rate, Denies pedal edema, Denies edema, Denies leg edema, Denies lightheadedness, Denies palpitations, Denies dyspnea, Denies dyspnea on exertion and Denies orthopnea Resp Denies cough, Denies dyspnea and Denies dyspnea on exertion GI Denies hematochezia and Denies change in stool character Musc Denies abnormal gait, Denies muscle cramps, Denies muscle weakness, Denies numbness, Denies radiating pain into limb and Denies tingling Neuro Denies abnormal gait, Denies dizziness, Denies syncope, Denies numbness, Denies tingling and Denies weakness Endo Denies palpitations Physical Exam Vital Signs: Last Vital Signs Pulse 46 L 03/02/25 14:10 BP 118/60 03/02/25 14:10 BMI result Body Mass Index 25.8 Const General: comfortable and no acute distress Orientation/consciousness: patient oriented x3 HEENT Other: Unremarkable Head: Yes normal to inspection Neck Neck: Yes normal visual inspection Chest Chest palpation & inspection: normal inspection of the chest Resp Auscultation: clear to auscultation bilaterally Cardio Palpation: normal PMI Heart sounds: S1 normal heart sound present, S2 normal heart sound present, no gallops, no murmurs and no rubs GI Palpation (GI): Soft to palpation Back/Spine/Pelvis Other: unremarkable Skin General skin exam: no rashes or lesions noted Neuro General: patient oriented x3 Extrem General: Yes normal to inspection Psych Mental Status: mental status grossly normal Office Procedures EKG Details: EKG with underlying sinus bradycardia at 46/Min; no ischemic changes; [place]. [id number], Complete Assessment & Plan Assessment & Plan (1) PAF (paroxysmal atrial fibrillation): Code(s): I48.0 - Paroxysmal atrial fibrillation Category: Medical (2) Atherosclerotic cardiovascular disease: Code(s): I25.10 - Atherosclerotic heart disease of [place] coronary artery without angina pectoris Category: Medical Plan Cardiac data reviewed. Per [facility] records, cardioversion in 2014. Has been on Flecainide since then. Echocardiogram with LVEF of 45-50% and RCA territory wall motion abnormality. Myocardial perfusion imaging study shows fixed inferior defect that could be from a prior infarct. Due to suspected coronary disease and unknown anatomy, he is off the flecainide. Switch to Multaq but due to recurrent atrial fibrillation, tried amiodarone but now having hypothyroidism and he wants to stop amiodarone completely. We discussed the risk of recurrent atrial fibrillation. We can at least keep him on the beta-blockers. He does not want any anticoagulation in spite of the stroke risk and he may continue just the low-dose aspirin. Diagnostic catheterization has been discussed in the past and today and he wants to be treated conservatively. If any ongoing concerns he will contact us immediately. Discussion Notes I discussed with the patient the discontinuation of amiodarone due to its impact on thyroid function. We also discussed the potential need for an angiogram to assess coronary artery blockages. We talked about the possibility of an ablation if atrial fibrillation continues after stopping amiodarone. A follow-up was planned in four to five months, with a Holter monitor to be done before the visit to check for atrial fibrillation. Patient was informed and verbally consented to the use of an ambient scribe for clinic note documentation during this visit. Medications: Discontinued amiodarone Discontinued Reason: Doctor's Order 200 mg orally; thursday/thu/thu 90 tabs 1RF Patient Instructions: - Stop taking amiodarone as discussed. - Take Aspirin.81mg daily/ - Plan for a follow-up visit in four to five months. - Complete a Holter monitor test before the next visit. Coding Level of Care Code Est Pt Level 4 (71618) Complex EM visit Add On G2211 Diagnoses PAF (paroxysmal atrial fibrillation) I48.0 Atherosclerotic cardiovascular disease I25.10 CPT Codes EKG - CPT: 07398-[id number], Complete ([id number])
[2025-03-02 14:10] VITALS: BP 118/60; PULSE 46; BMI 25.8
--- OUTSIDE RECORDS SUMMARY | 2025-03-02 16:43 | XMS_ITS | Clinical Summary ---
Author Organization [facility] Address [address] [place] [address] Care Team Providers Care Recovery Rn Name Role Phone Wilfred Haile MD Primary Care Provider [phone] Allergies No known active allergies Medications simvastatin [...] Ductal Carcinoma. All oncologic care done at [facility] Cancer center. Dr. Peters. ++ 06/2020. [facility]. Tamoxifen Completed. Mammograms have not [...] and SEVERE Stenosis at L4-5. ++ 04/2013. [facility]. Spinal Stenosis. Excellent Result. ++ [...] EF 50-55%. LVH 12 mm. ++ 12/2014. ECHO([place]): EF 55%. Excellent. Osteoarthritis of hip 06/11/2010 Overview (07/04/2019): 2009. The right hip is the worst and most clinically troublesome. The left is also moderately arthritic but scant clinical Sx. ++ 09/2018. Endstage OA RIGHT. THR Needed. Dr. Zamarripa requested. +01/2019. Dr. Cal Barnes. [facility]. RIGHT THR. Vitamin B12 deficiency [...] ++ 12/2014. PAF. EPS Attending at the [place]. Dr. Guzmán. Cardioversion. NSR. Assessment & Plan [...] 76 03/18/2022 1:48 PM EDT Temperature 36.7 C (98.1 F) 12/31/2020 1:03 PM EDT Respiratory Rate 20 03/18/2022 1:48 PM EDT [...] complete this topic Procedures * Due to [place] state law, this organization might not be sharing negative HIV tests. Procedure Name Priority Date/Time Associated Diagnosis Comments BASIC METABOLIC PANEL Routine 12/31/2020 1:[address] CHEST WO CONTRAST Routine 09/26/2016 11:29 AM EST from Last 3 Months or Most Recently Relevant to Health Maintenance Results * Due to [place] state law, this organization might not be sharing negative HIV tests. * Basic Metabolic Panel (12/31/2020 1:30 PM EDT) Glucose 81 65 - 139 mg/dL 12/31/2020 10:10 PM EDT [employer] [facility] Comment: Non-fasting reference interval BUN 15 7 - 25 mg/dL 12/31/2020 10:10 PM [employer] [facility] Creatinine 1.12 0.70 - 1.18 mg/dL 12/31/2020 10:10 PM [employer] [facility] Comment: For patients >49 years of age, the reference limit for Creatinine is approximately 13% higher for people identified as -[place]. eGFR Non- 63 > OR = 60 mL/min/1 .73m2 12/31/2020 10:10 PM [employer] [facility] eGFR 73 > OR = 60 mL/min/1 .73m2 12/31/2020 10:10 PM [employer] [facility] Bun/Creatinine Ratio NOT APPLICABLE 6 - 22 (calc) 12/31/2020 10:10 PM [employer] [facility] Sodium 137 135 - 146 mmol/L 12/31/2020 10:10 PM [employer] [facility] Potassium 4.0 3.5 - 5.3 mmol/L 12/31/2020 10:10 PM [employer] [facility] Chloride 102 98 - 110 mmol/L 12/31/2020 10:10 PM [employer] [facility] Carbon Dioxide 27 20 - 32 mmol/L 12/31/2020 10:10 PM [employer] [facility] Calcium 9.2 8.6 - 10.3 mg/dL 12/31/2020 10:10 PM [employer] [facility] Blood Structure of peripheral vein / Unknown 12/31/2020 1:30 PM EDT 12/31/2020 9:09 PM EDT Narrative [facility] - 12/31/2020 11:11 PM EDT FASTING:NO us Ranjit Lainez MD LAB BLOOD ORDERABLES Fin al Result [facility] [address], [place] [address], [place] [phone] [employer] [facility] [address] [place] [address] * CT Chest WO Contrast (09/26/2016 11:29 [...] and agree with the resident's interpretation. WSN: [id number] Narrative 09/29/2016 1:12 PM EST EXAMINATION: Chest [...] and agree with the resident's interpretation. WSN: [id number] Ranjit Lainez MD IMG CT PROCEDURES Final Result from Last 3 Months or Most Recently Relevant to Health Maintenance Insurance Advance Directives Documents on File Type Date Recorded Patient Habilitation Assistant Expl anation Health Care Proxy 01/03/2019 11:59 AM 12/07 Health Care Proxy 07/12/2010 12:00 AM 0 01/2010 Care Teams Recovery Rn Relationship Specialty Start Date End Date Wilfred Haile MD [address] [place] [address] PCP - General Family Medicine 06/22/23
== END 2025-03-02 14:38 | disposition home or self-care (01) ==
LOC: HO.HCS 13:52
PROVIDERS: PCP Family Medicine; Visit Provider Internal Medicine
DX: I48.0 Paroxysmal atrial fibrillation (principal); I25.10 Atherosclerotic heart disease of native coronary artery without angina pectoris
CPT/HCPCS: 93010; 99214; G2211

== ENCOUNTER → 2025-03-02 13:52 | Outpatient (BNVA) | payer MEDICARE, SELFPAY | PROVIDERS: PCP Family Medicine; Visit Provider Internal Medicine | DX: I48.0 Paroxysmal atrial fibrillation (principal); I25.10 Atherosclerotic heart disease of native coronary artery without angina pectoris | CPT/HCPCS: 93005; 99212 ==

== ENCOUNTER 2025-05-16 10:10 | Outpatient (REF) | payer MEDICARE, SELFPAY ==
--- OUTSIDE RECORDS SUMMARY | 2025-05-16 11:53 | XMS_ITS | Clinical Summary ---
Author Organization [facility] Address [address] [address] Phone Care Team Providers Care Auditor Name Role Phone Ranjit Lainez MD Primary Care Provide r Allergies No known active allergies Active Problems Problem Noted Date Diagnosed Date Lumbar spondylosis with myelopathy 03/18/2013 Overview (10/28/2014): Lumbar spondylosis with myelopathy Spinal stenosis of lumbar region 02/16/2013 Overview (10/28/2014): Spinal stenosis of lumbar region; Severe L3-4 and L4-5 Neurogenic claudication 02/16/2013 Overview (10/28/2014): Neurogenic claudication Social History Tobacco Use Types Packs/Day Years Used Date Smoking Tobacco: Every Day Cigarettes Education Answer Date Recorded Are you interested in more education? Not on ricardo e 01/03/2023 Are you concerned about learning? Not on file 01/03/2023 No 01/03/2023 No 01/03/2023 Digital Access Answer Date Recorded No 02/01/2023 No 02/01/2023 No 02/01/2023 Reliable internet access at home? Not on file 02/01/2023 Device with a working camera? Not on file Sex and Gender Information Value Date Recorded Sex Assigned at Not on file Legal Sex Male 5:21 PM EST Gender Identity Not on file Sexual Orientation Not on file Last Filed Vital Signs Vital Sign Reading Time Taken Comments Blood Pressure 120/70 02/16/2013 9:23 AM EDT Pulse 80 02/16/2013 9:23 AM EDT Temperature - - Respiratory Rate 12 02/16/2013 9:23 AM EDT Oxygen Saturation - - Inhaled Oxygen Concentration - - Weight 104.3 kg (230 lb) 03/01/2013 1:59 PM EDT Height 185.4 cm (6' 1 ) 03/01/2013 1:59 PM EDT Body Mass Index 30.34 03/01/2013 1:59 PM EDT Plan of Treatment Health Maintenance Due Date Last Done Comments Adult Td,Tdap Booster 1945 DEPRESSION SCREENING 1955 PNEUMOCOCCAL VACCINES (50+ y ears) (1 of 2 - PCV) 1962 ZOSTER VACCINES (1 of 2) 1993 RSV VACCINE (1 - 1-dose 75+ series) 2018 COVID-19 VACCINE (2 - 2023-2 5 season) 2024 01/10/2021 HEPATITIS A VACCINES Aged Out No long er eligible based on patient's age to complete this topic HIB VACCINES Aged Out No longer eligi ble based on patient's age to complete this topic MENINGOCOCCAL VACCINES (ACWY) Aged Out No longer eligible based on patient's age to complete this topic MENINGOCOCCAL VACCINES (B) Aged Out N o longer eligible based on patient's age to complete this topic Medical Devices Not on file Insurance [place] [employer] [id number] [place] [employer] [place] [employer] [place] [employer] [place] [employer] [place] [id number] [place] [employer] [place] [id number] Care Teams Auditor Relationship Specialty Start Date End Date Ranjit Lainez MD 100 [facility] [address] [place] [address] PCP - General Internal Medicine 03/15/19 Additional Source Comments The information contained in this document represents components of the legal health record. It is not the complete legal health record.[facility]
--- OUTSIDE RECORDS SUMMARY | 2025-05-16 11:53 | XMS_ITS | Encounter Summary ---
Author Organization [facility] Address [address] [place] [phone] Phone Care Team Providers Care Employment Specialist/Program Manager Name Role Phone Ranjit Lainez MD Primary Care Provide r Reason for Referral * Physical Therapy (Routine) - Closed Specialty Diagnoses / Procedures Referred By Ramona ornelas Referred To Contact Physical Therapy Diagnoses Encounter for rehabilitation System, Provider Not In, [facility] [id number] [place] [address] Phone: tel: Referral ID Status Reason Start Date Expiration Date Visits Re quested Visits Authorized [id number] Closed 03/22/2019 09/06/2019 12 12 Encounter Details Date Type Department Care Team (Latest Contact Info) Description 03/17/2019 Transcribe Orders [facility] Rehabilitation Services [address] [place] [address] Ranjit Lainez MD [address] [place] [address] Encounter for rehabilitation (Primary Dx) Social History Tobacco Use Types Packs/Day Years Used Date Smoking Tobacco: Every Day Cigarettes Sex and Gender Information Value Date Recorded Sex Assigned at Not on file Legal Sex Male 5:21 PM EST Gender Identity Not on file Sexual Orientation Not on file documented as of this encounter Plan of Treatment Scheduled Referrals Name Type Priority Associated Diagnoses Orde r Schedule Ambulatory referral to [facility] Physical Therapy Outpatient Referral Routine Encounter for rehabilitation Ordered: 03/17/2019 documented as of this encounter Visit Diagnoses Diagnosis Encounter for rehabilitation- Primary documented in this encounter Care Teams Employment Specialist/Program Manager Relationship Specialty Start Date End Date Ranjit Lainez MD 100 [facility] 60 [place] [phone] PCP - General Internal Medicine 03/15/19 documented as of this encounter Additional Source Comments The information contained in this document represents components of the legal health record. It is not the complete legal health record.[facility]
--- OUTSIDE RECORDS SUMMARY | 2025-05-16 11:53 | XMS_ITS | Clinical Summary ---
Author Organization [facility] Address [address] [place] [address] Care Team Providers Care Sanitation Lead Name Role Phone Wilfred Haile MD Primary Care Provider [phone] Allergies No known active allergies Medications simvastatin [...] Ductal Carcinoma. All oncologic care done at [facility]. Dr. Peters. ++ 06/2020. [facility] Oncology. Tamoxifen Completed. Mammograms have [...] and SEVERE Stenosis at L4-5. ++ 04/2013. [facility]. Spinal Stenosis. Excellent Result. ++ [...] EF 50-55%. LVH 12 mm. ++ 12/2014. ECHO([place]): EF 55%. Excellent. Osteoarthritis of hip 06/11/2010 Overview (07/04/2019): 2009. The right hip is the worst and most clinically troublesome. The left is also moderately arthritic but scant clinical Sx. ++ 09/2018. Endstage OA RIGHT. THR Needed. Dr. Zamarripa requested. +01/2019. Dr. Cal Barnes. [facility]. RIGHT THR. Vitamin B12 deficiency 06/11/2010 [...] ++ 12/2014. PAF. EPS Attending at the [place]. Dr. Guzmán. Cardioversion. NSR. Assessment & Plan [...] of Health Annual Screening 09/07/2024 Influenza Vaccine (#1) 2025 CT Lung Cancer Screening (12 months, previous LungRADS 1 or 2) Discontinued 09/26/2016, 07/26/2015 Hepatitis B Vaccines Aged Out No long er eligible based on patient's age to complete this topic Procedures * Due to [place] state law, this organization might not be sharing negative HIV tests. Procedure Name Priority Date/Time Associated Diagnosis Comments BASIC METABOLIC PANEL Routine 12/31/2020 1:[address] CHEST WO CONTRAST Routine 09/26/2016 11:29 AM EST from Last 3 Months or Most Recently Relevant to Health Maintenance Results * Due to [place] state law, this organization might not be sharing negative HIV tests. * Basic Metabolic Panel (12/31/2020 1:30 PM EDT) Glucose 81 65 - 139 mg/dL 12/31/2020 10:10 PM EDT [employer] [facility] Comment: Non-fasting reference interval BUN 15 7 - 25 mg/dL 12/31/2020 10:10 PM [employer] [facility] Creatinine 1.12 0.70 - 1.18 mg/dL 12/31/2020 10:10 PM [employer] [facility] Comment: For patients >49 years of age, the reference limit for Creatinine is approximately 13% higher for people identified as -Italian. eGFR Non- 63 > OR = 60 mL/min/1 .73m2 12/31/2020 10:10 PM [employer] [facility] eGFR 73 > OR = 60 mL/min/1 .73m2 12/31/2020 10:10 PM [employer] Bun/Creatinine Ratio NOT APPLICABLE 6 - 22 (calc) 12/31/2020 10:10 PM [employer] [facility] Sodium 137 135 - 146 mmol/L 12/31/2020 10:10 PM [employer] [facility] Potassium 4.0 3.5 - 5.3 mmol/L 12/31/2020 10:10 PM [employer] [facility] Chloride 102 98 - 110 mmol/L 12/31/2020 10:10 PM [employer] [facility] Carbon Dioxide 27 20 - 32 mmol/L 12/31/2020 10:10 PM [employer] [facility] Calcium 9.2 8.6 - 10.3 mg/dL 12/31/2020 10:10 PM [employer] [facility] Blood Structure of peripheral vein / Unknown 12/31/2020 1:30 PM EDT 12/31/2020 9:09 PM EDT Narrative [facility] - 12/31/2020 11:11 PM EDT FASTING:NO us Ranjit Lainez MD LAB BLOOD ORDERABLES Fin al Result [facility] [address] [facility] 3rd Floor, [place] [address], [place] [phone] [employer] [facility] [address] [place] [address] * CT Chest WO Contrast (09/26/2016 11:29 [...] and agree with the resident's interpretation. WSN: [id number] Narrative 09/29/2016 1:12 PM EST EXAMINATION: Chest [...] and agree with the resident's interpretation. WSN: [id number] Ranjit Lainez MD IMG CT PROCEDURES Final Result from Last 3 Months or Most Recently Relevant to Health Maintenance Insurance Advance Directives Documents on File Type Date Recorded Patient Community Association Manager Expl anation Health Care Proxy 01/03/2019 11:59 AM 12/07 Health Care Proxy 07/12/2010 12:00 AM 0 01/2010 Care Teams Sanitation Lead Relationship Specialty Start Date End Date Wilfred Haile MD [address] [place] [address] PCP - General Family Medicine 06/22/23
[2025-05-16 12:01] LABS: Alanine Aminotransferase 17 U/L (0-40); Albumin Level 4.1 g/dL (3.5-5.0); Alkaline Phosphatase 96 U/L (39-117); Anion Gap 12 (12-20); Aspartate Amino Transferase 33 U/L (5-37); Blood Urea Nitrogen 22 mg/dL (9-16); Calcium 9.1 mg/dL (8.4-10.2); Carbon Dioxide 29 mmol/L (22-29); Chloride 108 mmol/L (96-108); Estimated Glomerular Filt Rate > 60; Potassium 4.7 mmol/L (3.3-5.1); Sodium 144 mmol/L (135-145); Total Protein 7.1 g/dL (6.5-8.0)
[2025-05-16 12:19] LABS: Free T4 (Free Thyroxine) 0.75 ng/dL (0.71-1.85); Thyroid Stimulating Hormone 18.36 uIU/mL (0.32-4.0)
== END 2025-05-16 10:11 | disposition home or self-care (01) ==
LOC: HO.WFDLDS 10:10
PROVIDERS: Visit Provider Family Medicine
DX: Z00.00 Encounter for general adult medical examination without abnormal findings (principal); E03.2 Hypothyroidism due to medicaments and other exogenous substances; E03.9 Hypothyroidism, unspecified
CPT/HCPCS: 36415; 80053; 84439; 84443; 84480

== ENCOUNTER 2025-05-22 09:41 | Outpatient (AMB) | payer MEDICARE, SELFPAY ==
[2025-05-22 09:54] VITALS: BP 130/68; PULSE 50; O2SAT 100; BMI 26.7
--- NOTE | 2025-05-22 09:54 | MHC.OFFVIS ---
Vital Signs 05/22/25 09:54 Height 5 ft 11 in Weight 191 lb 5.78 oz BMI 26.7 BP 130/68 Blood Pressure Location Lt brachial Position Sitting Pulse 50 Pulse Source Pulse Oximeter Pulse Oximetry (%) 100 Oxygen Delivery Method Room Air Intake Visit Reasons: Elevated TSH Intake Note: Patient present today for Elevated TSH office visit. Service Center Technician Required: No Accompanied by: Self / Same As Patient Allergies No Known Allergies Allergy (Verified 05/22/25 09:57) Medication List - Last Reconciled 05/22/25 by Aminata Rodriguez MD atorvastatin 40 mg PO QPM levothyroxine 50 mcg PO DAILY metoprolol tartrate 25 mg PO BID varenicline tartrate PO PER PKG DIR 28 days HPI Comments Details: 79-year-old male coming in today for follow up of hypothyroidism. HPI 14 years ago developed PAF Was on coumadin for some years then stopped 10 years ago Was following with cards , started on sotalol, then switched to flecanide for some years, then established with a new database administration associate, amiodarone for the past 6-8 months on 200 mg Thursday. , He had normal thyroid function up until 2022. Labs in November 2024 showed TSH elevated at 77.93, free T4 low at 0.42. Most recent labs repeated 02/20/2025 again showed TSH elevated at 82.06 with a free T4 low at 0.44, total T3 also undetectable. Reports fatigue, reports cold intolerance. no constipation. weight stable. no tremors. ? Patient denies any difficulty swallowing, pain on swallowing or voice changes or difficulty breathing. Patient denies any history of childhood neck radiation. Denies having ever used lithium, amiodarone or biotin supplements. Daughter: thyroid cancer now healthy at 50 years smoker 60 pack years alcohol: 2 drinks per day no drug use retired from [employer] Interval history 02/21/2025: Established care with me, started on levothyroxine 50 mcg daily -February 2025 stopped amiodarone as well -05/16/2025: TSH improved to 18.36, free T4 0.75, total T3 51 Physical exam General: sitting comfortably in no acute distress HEENT: normocephalic/atraumatic, Neck: supple, Cardiac: normal heart sounds Pulm: normal breath sounds B/L, no added breath sounds Abd: not distended, no tenderness Extremities: no edema, no signs of myxedema Laboratory Tests 05/22/23 06/01/23 11/30/24 10:55 10:15 07:55 TSH < 0.01 L 1.25 77.93 H Free T4 0.86 0.86 < 0.42 L Total T3 81 Thyroglobulin Antibody Thyroid Peroxidase Ab 12/12/24 02/20/25 11:04 08:04 TSH 81.63 H 82.06 H Free T4 < 0.42 L 0.44 L Total T3 <25 L <25 L Thyroglobulin Antibody <1 Thyroid Peroxidase Ab <1 Laboratory Tests 02/20/25 05/16/25 08:04 10:12 TSH 82.06 H 18.36 H Free T4 0.44 L 0.75 Total T3 <25 L 51 L PFSH Medical History (Updated 02/21/25 @ 14:56 by Aminata Rodriguez MD) Hypothyroidism Screening for prostate cancer Screening for colon cancer Adult general medical exam Emphysema of lung Encounter for monitoring flecainide therapy Smoker History of atrial fibrillation Laboratory exam ordered as part of routine general medical examination PAF (paroxysmal atrial fibrillation) Hyperlipidemia History of cancer of right breast Personal history of nicotine dependence Surgical History History of cardioversion H/O colonoscopy History of right mastectomy History of total right hip arthroplasty History of back surgery Family History Paternal Grandfather Heart attack Mother Alzheimer disease Father Cancer Social History Housing: House Are you a primary child care worker to a significant other at home: No Do you presently have visiting nurse or other home services: No Alcohol intake: current Alcohol intake frequency: 0-2 drinks per day Comment: social Patient Tobacco Use Status: Current everyday Tobacco user Tobacco use type: Cigarette Cigarette Packs Per Day: 1 Cigarettes Per Day: 20.0 Years Smoked: onset 13, 1ppd x 63yrs, 60PYH e-Cigarette/Vaping Use: Never Used Second Hand Smoke Exposure: Yes service: Yes Current occupational status: retired Cognitive needs: No Hearing needs: No Vision needs: Yes (wears glasses) Physical Exam Vital Signs: Last Vital Signs Pulse 50 05/22/25 09:54 BP 130/68 05/22/25 09:54 Pulse Ox 100 05/22/25 09:54 Oxygen Delivery Method Room Air 05/22/25 09:54 BMI result Body Mass Index 26.7 Assessment & Plan Assessment & Plan (1) Hypothyroidism: Code(s): E03.9 - Hypothyroidism, unspecified Category: Medical Qualifiers: Hypothyroidism type: due to medication Qualified Code(s): E03.2 - Hypothyroidism due to medicaments and other exogenous substances Plan: 79-year-old male coming in today for initial evaluation of hypothyroidism. Diagnosed in November 2024 and he was noted to have TSH elevated at 77.93, free T4 low at 0.42. Most recent labs repeated 02/20/2025 again showed TSH elevated at 82.06 with a free T4 low at 0.44, total T3 also undetectable. Since late 2023/early 2024. The common pattern observed in euthyroid patient is is high free T4 and total T4, low normal T3 and high reverse T3 and high normal TSH, these changes tend to persist over time although serum TSH values me gradually normalize in some patients. This is usually the case in euthyroid patients. About 10-20% of the patients taking amiodarone develop amiodarone induced hypothyroidism. Patient's labs are consistent with this diagnosis. TPO antibodies are negative hence not Makenna's thyroiditis. I explained to the patient that he can be continued on amiodarone from my standpoint and we will treat the hypothyroidism. 02/21/2025: Established care with me, started on levothyroxine 50 mcg daily -February 2025 stopped amiodarone as well -05/16/2025: TSH improved to 18.36, free T4 0.75, total T3 51 At this time we will titrate up the dose of levothyroxine and repeat blood work in 6 weeks. Plan: - increase levothyroxine to 75 mcg daily -ordered TSH and free T4 to be done in 6 weeks, we will reach out with the results -follow up in 6 months Plan See above Orders: Orders Thyroid Stimulating Hormone 6 Weeks E03.2 - Hypothyroidism due to medicaments and other exogenous substances Free T4 (Free Thyroxine) 6 Weeks E03.2 - Hypothyroidism due to medicaments and other exogenous substances Medications: New levothyroxine (Levoxyl) 75 mcg PO DAILY 30 tabs 6RF Discontinued levothyroxine Discontinued Reason: Doctor's Order 50 mcg PO DAILY 30 tabs 6RF Patient Instructions: Increase levothyroxine to 75 mcg daily Do blood in 6 weeks after , we will reach out with results Follow up in November 2025 Coding Level of Care Code Est Pt Level 4 (00669) Diagnoses Hypothyroidism due to medication E03.2 Hypothyroidism type: due to medication
--- OUTSIDE RECORDS SUMMARY | 2025-05-22 11:50 | XMS_ITS | Clinical Summary ---
Author Organization [facility] Address [address] [place] [address] Care Team Providers Care Professional Golf Tournament Player Name Role Phone Wilfred Haile MD Primary Care Provider [phone] Allergies No known active allergies Medications simvastatin [...] Carcinoma. All oncologic care done at [facility] center. Dr. Peters. ++ 06/2020. [facility] Oncology. Tamoxifen Completed. Mammograms have [...] and SEVERE Stenosis at L4-5. ++ 04/2013. [facility]. Spinal Stenosis. Excellent Result. ++ [...] EF 50-55%. LVH 12 mm. ++ 12/2014. ECHO([place]): EF 55%. Excellent. Osteoarthritis of hip 06/11/2010 Overview (07/04/2019): 2009. The right hip is the worst and most clinically troublesome. The left is also moderately arthritic but scant clinical Sx. ++ 09/2018. Endstage OA RIGHT. THR Needed. Dr. Zamarripa requested. +01/2019. Dr. Cal Barnes. [facility]. RIGHT THR. Vitamin B12 deficiency 06/11/2010 Overview [...] ++ 12/2014. PAF. EPS Attending at the [place]. Dr. Guzmán. Cardioversion. NSR. Assessment & Plan [...] complete this topic Procedures * Due to [place] state law, this organization might not be sharing negative HIV tests. Procedure Name Priority Date/Time Associated Diagnosis Comments BASIC METABOLIC PANEL Routine 12/31/2020 1:[address] CHEST WO CONTRAST Routine 09/26/2016 11:29 AM EST from Last 3 Months or Most Recently Relevant to Health Maintenance Results * Due to [place] state law, this organization might not be sharing negative HIV tests. * Basic Metabolic Panel (12/31/2020 1:30 PM EDT) Glucose 81 65 - 139 mg/dL 12/31/2020 10:10 PM EDT [employer] [facility] Comment: Non-fasting reference interval BUN 15 7 - 25 mg/dL 12/31/2020 10:10 PM [employer] [facility] Creatinine 1.12 0.70 - 1.18 mg/dL 12/31/2020 10:10 PM [employer] [facility] Comment: For patients >49 years of age, the reference limit for Creatinine is approximately 13% higher for people identified as -Georgian. eGFR Non- 63 > OR = 60 mL/min/1 .73m2 12/31/2020 10:10 PM [employer] [facility] eGFR 73 > OR = 60 mL/min/1 .73m2 12/31/2020 10:10 PM [employer] [facility] Bun/Creatinine Ratio NOT APPLICABLE 6 - 22 (calc) 12/31/2020 10:10 PM [employer] [facility] Sodium 137 135 - 146 mmol/L 12/31/2020 10:10 PM [employer] [facility] Potassium 4.0 3.5 - 5.3 mmol/L 12/31/2020 10:10 PM [employer] [facility] Chloride 102 98 - 110 mmol/L 12/31/2020 10:10 PM [employer] [facility] Carbon Dioxide 27 20 - 32 mmol/L 12/31/2020 10:10 PM [employer] [facility] Calcium 9.2 8.6 - 10.3 mg/dL 12/31/2020 10:10 PM [employer] [facility] Blood Structure of peripheral vein / Unknown 12/31/2020 1:30 PM EDT 12/31/2020 9:09 PM EDT Narrative [facility] - 12/31/2020 11:11 PM EDT FASTING:NO us Ranjit Lainez MD LAB BLOOD ORDERABLES Fin al Result [facility] [address] [facility] 3rd Floor, [place] [address], [place] [phone] [employer] [facility] [address] [place] [address] * CT Chest WO Contrast (09/26/2016 11:29 [...] and agree with the resident's interpretation. WSN: [id number] Narrative 09/29/2016 1:12 PM EST EXAMINATION: Chest [...] and agree with the resident's interpretation. WSN: [id number] Ranjit Lainez MD IMG CT PROCEDURES Final Result from Last 3 Months or Most Recently Relevant to Health Maintenance Insurance Advance Directives Documents on File Type Date Recorded Patient Cash Teller Expl anation Health Care Proxy 01/03/2019 11:59 AM 12/07 Health Care Proxy 07/12/2010 12:00 AM 0 01/2010 Care Teams Professional Golf Tournament Player Relationship Specialty Start Date End Date Wilfred Haile MD [address] [place] [address] PCP - General Family Medicine 06/22/23
--- OUTSIDE RECORDS SUMMARY | 2025-05-22 11:50 | XMS_ITS | Encounter Summary ---
Author Organization [facility] Address [address] [place] [phone] Phone Care Team Providers Care Can Cutter Name Role Phone Ranjit Lainez MD Primary Care Provide r Reason for Referral * Physical Therapy (Routine) - Closed Specialty Diagnoses / Procedures Referred By Ramona ornelas Referred To Contact Physical Therapy Diagnoses Encounter for rehabilitation System, Provider Not In, [facility] [id number] [place] [address] Phone: tel: Referral ID Status Reason Start Date Expiration Date Visits Re quested Visits Authorized [id number] Closed 03/22/2019 09/06/2019 12 12 Encounter Details Date Type Department Care Team (Latest Contact Info) Description 03/17/2019 Transcribe Orders [facility] [address] [place] [phone] Ranjit Lainez MD [address] [place] [address] Encounter for rehabilitation (Primary Dx) Social History [...] Diagnoses Orde r Schedule Ambulatory referral to [facility] Physical Therapy Outpatient Referral Routine Encounter for rehabilitation Ordered: 03/17/2019 documented as of this encounter Visit Diagnoses Diagnosis Encounter for rehabilitation- Primary documented in this encounter Care Teams Can Cutter Relationship Specialty Start Date End Date Ranjit Lainez MD 100 [facility] 60 [place] [phone] PCP - General Internal Medicine 03/15/19 documented as of this encounter Additional Source Comments The information contained in this document represents components of the legal health record. It is not the complete legal health record.[facility]
--- OUTSIDE RECORDS SUMMARY | 2025-05-22 11:50 | XMS_ITS | Clinical Summary ---
Author Organization [facility] Address [address] [address] Phone Care Team Providers Care Wine Master Name Role Phone Ranjit Lainez MD Primary [...] VACCINE (1 - 1-dose 75+ series) 2018 INFLUENZA VACCINE (#1) 2025 COVID-19 VACCINE (2 - 2024-2 6 season) 2025 01/10/2021 HEPATITIS A VACCINES Aged Out No [...] topic Medical Devices Not on file Insurance [place] [employer] [place] [employer] [employer] [employer] [place] [employer] [place] [employer] [place] [employer] [place] [employer] [place] [employer] [place] [employer] Care Teams Wine Master Relationship Specialty Start Date End Date Ranjit Lainez MD 100 [facility] 60 [place] [address] PCP - General Internal Medicine 03/15/19 Additional Source Comments The information contained in this document represents components of the legal health record. It is not the complete legal health record.[facility]
== END 2025-05-22 10:16 | disposition home or self-care (01) ==
LOC: HO.ENCR 09:42
PROVIDERS: PCP Family Medicine; Visit Provider Student in an Organized Health Care Education/Training Program
DX: E03.2 Hypothyroidism due to medicaments and other exogenous substances (principal)
CPT/HCPCS: 99214

== ENCOUNTER → 2025-05-22 09:41 | Outpatient (BNVA) | payer MEDICARE, SELFPAY | PROVIDERS: PCP Family Medicine; Visit Provider Student in an Organized Health Care Education/Training Program | DX: E03.2 Hypothyroidism due to medicaments and other exogenous substances (principal); R53.83 Other fatigue | CPT/HCPCS: 99212 ==

== ENCOUNTER 2025-06-02 12:59 | Outpatient (AMB) | payer MEDICARE, SELFPAY ==
--- NOTE | 2025-06-02 13:07 | A.OFFPC_ITS ---
Vital Signs 06/02/25 13:11 Height 5 ft 11 in Weight 192 lb 6 oz BMI 26.8 BP 124/60 Blood Pressure Location Rt brachial Position Sitting Respiration 16 Pulse 61 Pulse Source Pulse Oximeter Temp 97.9 F Temp Source Oral Pulse Oximetry (%) 97 Oxygen Delivery Method Room Air Intake Visit Reasons: f/u liver enzymes, labs Intake Note: patient here for follow up on liver enzymes and labs Abalone Diver Required: No Allergies No Known Allergies Allergy (Verified 06/02/25 13:10) Medication List - Last Reconciled 06/02/25 by Wilfred Haile MD atorvastatin 40 mg PO QPM levothyroxine (Levoxyl) 75 mcg PO DAILY metoprolol tartrate 25 mg PO BID Tobacco use date assessed: 06/02/25 Fall risk assessment: No Falls in past year Last assessed Fall Risk: 06/02/25 Dental Screening Dental Screen Date: 06/02/25 Did you have a dental visit in the last 12 months?: No Did you have a dental problem in the last 6 months where you did not have access to dental care?: No Was dental information given to patient?: Patient declined HPI f/u liver enzymes, labs HPI Details 79 y/o male presents to f/u HTN, labs. Labs drawn 05/16/25. Reviewed labs with pt. Liver enzymes improved - AST 33, ALT 17. TSH improved from 82.06 to 18.36 uIU/mL. He is on levothyroxine 75mcg daily. Followed by endocrinology. BP today 124/60, 61p. He is on metoprolol 25 mg b.i.d. HPI Comments History of Present Illness Details Documentation assistance for Wilfred Hiale MD, was provided by Chao Hicks,? Torch Burner on 06/02/2025 at 1:41 PM EST. I, Dr. Haile, have read, observed, and verified documentation. ?? [facility] Medical History (Updated 02/21/25 @ 14:56 by Aminata Rodriguez MD) Hypothyroidism Screening for prostate cancer Screening for colon cancer Adult general medical exam Emphysema of lung Encounter for monitoring flecainide therapy Smoker History of atrial fibrillation Laboratory exam ordered as part of routine general medical examination PAF (paroxysmal atrial fibrillation) Hyperlipidemia History of cancer of right breast Personal history of nicotine dependence Surgical History History of cardioversion H/O colonoscopy History of right mastectomy History of total right hip arthroplasty History of back surgery Family History Paternal Grandfather Heart attack Mother Alzheimer disease Father Cancer Social History Housing: House Are you a primary career guidance counselor to a significant other at home: No Do you presently have visiting nurse or other home services: No Alcohol intake: current Alcohol intake frequency: 0-2 drinks per day Comment: social Patient Tobacco Use Status: Current everyday Tobacco user Tobacco use type: Cigarette Cigarette Packs Per Day: 1 Cigarettes Per Day: 20.0 Years Smoked: onset 13, 1ppd x 63yrs, 60PYH e-Cigarette/Vaping Use: Never Used Second Hand Smoke Exposure: Yes service: Yes Current occupational status: retired Cognitive needs: No Hearing needs: No Vision needs: Yes (wears glasses) Questionnaire Thrive Questionnaire Date Thrive assessed: 11/10/24 I am a: Patient What is your living situation today?: I have a steady place to live Within the past 12 months, did the food you bought not last and you didn't have the money to get more?: Never true Within the past 12 months, did you worry whether your food would run out before you got money to buy more?: Never true Do you have trouble paying for medicines?: Yes Do you have trouble getting transportation to medical appointments?: No Do you have trouble paying your heating and electricity bill?: No Do you have trouble taking care of your child, family member or friend?: No Do you have trouble with day-to-day activities such as bathing, preparing meals, shopping, managing finances, etc.?: No Are you currently unemployed and looking for a job?: No Are you interested in more education?: No Please select the resources that you would like help with: None Currently or been in a relationship where the following occur: No concerns reported THRIVE Score: 0 NANCY-7 AMB Questionnaire NANCY-7 Date NANCY - 7 assessed: 01/11/25 Source: Developed by Drs. Daniel St, Irasema Rios, Henry Soria and colleagues, with an educational mercedez from [employer]. Review of Systems Const Denies chills, Denies fatigue, Denies fever(s), Denies headache(s) and Denies weakness ENT Denies dizziness and Denies headache(s) Card Denies dyspnea Resp Denies cough, Denies dyspnea, Denies wheezing and Denies other (shortness of breath) Musc Denies numbness and Denies tingling Neuro Denies dizziness, Denies headache(s), Denies numbness, Denies tingling and Denies weakness Psych Denies anxiety and Denies depression Endo Denies fatigue Aller/Immun Denies wheezing Physical exam (Primary Care) Vital Signs: Last Vital Signs Temp 97.9 F 06/02/25 13:11 Pulse 61 06/02/25 13:11 Resp 16 06/02/25 13:11 BP 124/60 06/02/25 13:11 Pulse Ox 97 06/02/25 13:11 Oxygen Delivery Method Room Air 06/02/25 13:11 BMI result Body Mass Index 26.8 Tobacco/Smoking Status: Tobacco use Status Tobacco use date assessed 06/02/25 06/02/25 13:15 Patient Tobacco Use Status Current everyday Tobacco 06/02/25 13:15 Tobacco use type Cigarette 06/02/25 13:15 e-Cigarette/Vaping Use Never Used 06/02/25 13:15 Thrive Assessment: Date of Thrive Assessment Date Thrive assessed 11/10/24 06/02/25 13:15 Currently or been in a relationship where the following occur: No concerns reported Const General: well developed; No acute distress Nutritional Appearance: well nourished Orientation/consciousness: patient oriented x3 [facility] Head: Yes normocephalic and Yes atraumatic Eyes General: appearance normal, both eyes and all related structures Pupils: Equal, round and reactive pupils present EOM: EOMs intact bilaterally Resp Effort & Inspection: normal respiratory effort Auscultation: clear to auscultation bilaterally Cardio Rate: regular rate Rhythm: regular rhythm Heart sounds: S1 normal heart sound present, S2 normal heart sound present, no gallops, no murmurs and no rubs Neuro General: patient oriented x3 and gait normal Cranial nerves: Yes Equal, round and reactive pupils present Psych Affect: normal affect Coding Level of Care Code Est Pt Level 4 (25880) Diagnoses Hypertension I10 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 Goal is less than 130/90 Continue current medication (2) Atherosclerotic cardiovascular disease: Code(s): I25.10 - Atherosclerotic heart disease of aug[place] coronary artery without angina pectoris Category: Medical Plan: He is on atorvastatin 40 mg daily Blood pressure is controlled Stable Has an upcoming appointment with cardiology (3) PAF (paroxysmal atrial fibrillation): Code(s): I48.0 - Paroxysmal atrial fibrillation Category: Medical Plan: Rate controlled with metoprolol Stable Follow-up with Cardiology as recommended (4) Hyperlipidemia: Code(s): E78.5 - Hyperlipidemia, unspecified Category: Medical Plan: As above LDL goal is less than 70. Fairly well controlled. Continue atorvastatin (5) Hypothyroidism: Code(s): E03.9 - Hypothyroidism, unspecified Category: Medical Qualifiers: Hypothyroidism type: due to medication Qualified Code(s): E03.2 - Hypothyroidism due to medicaments and other exogenous substances Plan: TSH was greater than 80 at prior measurement. Now coming down Managed by endocrinology Taking levothyroxine as prescribed Follow-up with endocrinology as recommended (6) Elevated AST (SGOT): Code(s): R74.01 - Elevation of levels of liver transaminase levels Category: Medical Plan: Liver enzymes were elevated at prior measurement. Advised good hydration Avoid Tylenol and alcohol Liver enzymes now in normal range Advised alcohol in moderation Avoid Tylenol when drinking alcohol Orders: Orders Comprehensive [place]. Panel Fast Today Z00.00 - Encounter for general adult medical examination without abnormal findings UA CC w/rflx Micro + Cult Today Z00.00 - Encounter for general adult medical examination without abnormal findings Prostate Specific Antigen Scr Today Z12.5 - Encounter for screening for malignant neoplasm of prostate Microalbumin, Random (w Creat) Today I10 - Essential (primary) hypertension Complete Blood Count Auto Diff Today Z00.00 - Encounter for general adult medical examination without abnormal findings Lipid Panel Today Z00.00 - Encounter for general adult medical examination without abnormal findings
[2025-06-02 13:11] VITALS: BP 124/60; PULSE 61; RESP 16; TEMP 36.6; O2SAT 97; BMI 26.8
--- OUTSIDE RECORDS SUMMARY | 2025-06-02 14:22 | XMS_ITS | Clinical Summary ---
Author Organization [facility] Address [address] [place] [address] Care Team Providers Care Wire Rigger Name Role Phone Wilfred Haile MD Primary Care Provider [phone] Allergies No known active allergies Medications simvastatin [...] Ductal Carcinoma. All oncologic care done at [facility] Cancer center. Dr. Peters. ++ 06/2020. [facility] Oncology. Tamoxifen Completed. Mammograms have not [...] and SEVERE Stenosis at L4-5. ++ 04/2013. [facility]. Spinal Stenosis. Excellent Result. ++ [...] EF 50-55%. LVH 12 mm. ++ 12/2014. ECHO([facility]): EF 55%. Excellent. Osteoarthritis of hip 06/11/2010 [...] ++ 12/2014. PAF. EPS Attending at the [facility]. Dr. Guzmán. Cardioversion. NSR. Assessment & Plan [...] complete this topic Procedures * Due to [place] state law, this organization might not be sharing negative HIV tests. Procedure Name Priority Date/Time Associated Diagnosis Comments BASIC METABOLIC PANEL Routine 12/31/2020 1:[address] CHEST WO CONTRAST Routine 09/26/2016 11:29 AM EST from Last 3 Months or Most Recently Relevant to Health Maintenance Results * Due to [place] state law, this organization might not be sharing negative HIV tests. * Basic Metabolic Panel (12/31/2020 1:30 PM EDT) Glucose 81 65 - 139 mg/dL 12/31/2020 10:10 PM EDT [facility] Comment: Non-fasting reference interval BUN 15 7 - 25 mg/dL 12/31/2020 10:10 PM [facility] Creatinine 1.12 0.70 - 1.18 mg/dL 12/31/2020 10:10 PM [facility] Comment: For patients >49 years of age, the reference limit for Creatinine is approximately 13% higher for people identified as -Colombian. eGFR Non- 63 > OR = 60 mL/min/1 .73m2 12/31/2020 10:10 PM [facility] eGFR 73 > OR = 60 mL/min/1 .73m2 12/31/2020 10:10 PM [facility] Bun/Creatinine Ratio NOT APPLICABLE 6 - 22 (calc) 12/31/2020 10:10 PM [facility] Sodium 137 135 - 146 mmol/L 12/31/2020 10:10 PM [facility] Potassium 4.0 3.5 - 5.3 mmol/L 12/31/2020 10:10 PM [facility] Chloride 102 98 - 110 mmol/L 12/31/2020 10:10 PM [facility] Carbon Dioxide 27 20 - 32 mmol/L 12/31/2020 10:10 PM [facility] Calcium 9.2 8.6 - 10.3 mg/dL 12/31/2020 10:10 PM [facility] Blood Structure of peripheral vein / Unknown 12/31/2020 1:30 PM EDT 12/31/2020 9:09 PM EDT Narrative [facility] - 12/31/2020 11:11 PM EDT FASTING:NO us Ranjit Lainez MD LAB BLOOD ORDERABLES Fin al Result [facility] [address], [place] [address], [place] [phone] [facility] [address] [place] [address] * CT Chest WO Contrast (09/26/2016 11:29 [...] and agree with the resident's interpretation. WSN: [id number] Narrative 09/29/2016 1:12 PM EST EXAMINATION: Chest [...] and agree with the resident's interpretation. WSN: [id number] Ranjit Lainez MD IMG CT PROCEDURES Final Result from Last 3 Months or Most Recently Relevant to Health Maintenance Insurance Advance Directives Documents on File Type Date Recorded Patient Box Loader Expl anation Health Care Proxy 01/03/2019 11:59 AM 12/07 Health Care Proxy 07/12/2010 12:00 AM 0 01/2010 Care Teams Wire Rigger Relationship Specialty Start Date End Date Wilfred Haile MD [address] [place] [address] PCP - General Family Medicine 06/22/23
--- OUTSIDE RECORDS SUMMARY | 2025-06-02 14:22 | XMS_ITS | Clinical Summary ---
Author Organization [facility] Address [address] [address] Phone Care Team Providers Care Cook Mayonnaise Name Role Phone Ranjit Lainez MD Primary [...] topic Medical Devices Not on file Insurance MICA MEDICARE REPLACEMENT MICA MEDICARE REPLACEMENT MICA MEDICARE REPLACEMENT MICA MEDICARE REPLACEMENT MICA MEDICARE REPLACEMENT MICA MEDICARE REPLACEMENT MICA MEDICARE REPLACEMENT MICA MEDICARE REPLACEMENT MICA MEDICARE REPLACEMENT Care Teams Cook Mayonnaise Relationship Specialty Start Date End Date Ranjit Lainez MD [address] [facility] [address] [place] [address] PCP - General Internal Medicine 03/15/19 Additional Source Comments The information contained in this document represents components of the legal health record. It is not the complete legal health record.[facility]
--- OUTSIDE RECORDS SUMMARY | 2025-06-02 14:22 | XMS_ITS | Encounter Summary ---
Author Organization [facility] Address [address] [place] [phone] Phone Care Team Providers Care Engineering Lecturer Name Role Phone Ranjit Lainez MD Primary Care Provide r Reason for Referral * Physical Therapy (Routine) - Closed Specialty Diagnoses / Procedures Referred By Ramona ornelas Referred To Contact Physical Therapy Diagnoses Encounter for rehabilitation System, Provider Not In, [facility] [id number] [place] [address] Phone: tel: Referral ID Status Reason Start Date Expiration Date Visits Re quested Visits Authorized [id number] Closed 03/22/2019 09/06/2019 12 12 Encounter Details Date Type Department Care Team (Latest Contact Info) Description 03/17/2019 Transcribe Orders [facility] [address] [place] [id number] Ranjit Lainez MD [address] [place] [address] Encounter for rehabilitation (Primary Dx) Social History [...] Diagnoses Orde r Schedule Ambulatory referral to [facility] Physical Therapy Outpatient Referral Routine Encounter for rehabilitation Ordered: 03/17/2019 documented as of this encounter Visit Diagnoses Diagnosis Encounter for rehabilitation- Primary documented in this encounter Care Teams Engineering Lecturer Relationship Specialty Start Date End Date Ranjit Lainez MD 100 [facility] [address] [place] [phone] PCP - General Internal Medicine 03/15/19 documented as of this encounter Additional Source Comments The information contained in this document represents components of the legal health record. It is not the complete legal health record.[facility]
== END 2025-06-02 17:00 | disposition home or self-care (01) ==
LOC: HO.HMCFM 13:00
PROVIDERS: PCP Family Medicine; Visit Provider Family Medicine
DX: I10 Essential (primary) hypertension (principal); I25.10 Atherosclerotic heart disease of native coronary artery without angina pectoris; I48.0 Paroxysmal atrial fibrillation; E78.5 Hyperlipidemia, unspecified; E03.2 Hypothyroidism due to medicaments and other exogenous substances; R74.01 Elevation of levels of liver transaminase levels

== ENCOUNTER → 2025-06-02 12:59 | Outpatient (BNVA) | payer MEDICARE, SELFPAY | PROVIDERS: PCP Family Medicine; Visit Provider Family Medicine | DX: I10 Essential (primary) hypertension (principal); I25.10 Atherosclerotic heart disease of native coronary artery without angina pectoris; I48.0 Paroxysmal atrial fibrillation; E78.5 Hyperlipidemia, unspecified; E03.2 Hypothyroidism due to medicaments and other exogenous substances; R74.01 Elevation of levels of liver transaminase levels | CPT/HCPCS: 99212 ==

== ENCOUNTER 2025-06-08 12:10 | Outpatient (AMB) | payer MEDICARE, SELFPAY ==
[2025-06-08 12:33] VITALS: BP 122/62; PULSE 55; BMI 26.7
--- NOTE | 2025-06-08 12:33 | A.OFFVIS_ITS ---
Vital Signs 06/08/25 12:33 Height 5 ft 11 in Weight 191 lb 12.835 oz BMI 26.7 BP 122/62 Blood Pressure Location Lt brachial Position Sitting Pulse 55 Pulse Source Pulse Oximeter Intake Visit Reasons: 6 mth f/up Allergies No Known Allergies Allergy (Verified 06/02/25 13:10) Medication List - Last Reconciled 06/08/25 by John Velazquez MD atorvastatin 40 mg PO QPM levothyroxine (Levoxyl) 75 mcg PO DAILY metoprolol tartrate 25 mg PO BID HPI Comments Details: Rambo returns for follow-up. To recall, he was previously followed at [facility]. Has a history of atrial fibrillation and underwent GERRI/cardioversion many years ago. He was maintained on flecainide. Was not on anticoagulation by his own choice. Last year, he underwent echocardiogram and that showed inferior wall motion abnormality and we stopped the Flecainide and switched him to beta-blockers. Then he came for a stress test and at that time he went into atrial fibrillation during the ETT. Then sent to ER and he received flecainide and converted to sinus rhythm. After that, switched to Multaq, but he still had atrial fibrillation and hence put is on amiodarone. He also underwent perfusion imaging showing inferior findings. After this, he developed hypothyroidism and then amiodarone was stopped. He is only on beta- blockers. He has refused anticoagulation all along. Overall, he states he feels fine. No cardiac symptoms. [facility] Medical History (Updated 02/21/25 @ 14:56 by Aminata Rodriguez MD) Hypothyroidism Screening for prostate cancer Screening for colon cancer Adult general medical exam Emphysema of lung Encounter for monitoring flecainide therapy Smoker History of atrial fibrillation Laboratory exam ordered as part of routine general medical examination PAF (paroxysmal atrial fibrillation) Hyperlipidemia History of cancer of right breast Personal history of nicotine dependence Surgical History History of cardioversion H/O colonoscopy History of right mastectomy History of total right hip arthroplasty History of back surgery Family History Paternal Grandfather Heart attack Mother Alzheimer disease Father Cancer Social History Housing: House Are you a primary account executive healthcare to a significant other at home: No Do you presently have visiting nurse or other home services: No Alcohol intake: current Alcohol intake frequency: 0-2 drinks per day Comment: social Patient Tobacco Use Status: Current everyday Tobacco user Tobacco use type: Cigarette Cigarette Packs Per Day: 1 Cigarettes Per Day: 20.0 Years Smoked: onset 13, 1ppd x 63yrs, 60PYH e-Cigarette/Vaping Use: Never Used Second Hand Smoke Exposure: Yes service: Yes Current occupational status: retired Cognitive needs: No Hearing needs: No Vision needs: Yes (wears glasses) Review of Systems Const Denies weakness ENT Denies dizziness Card Denies chest pain, Denies chest pain with activity, Denies syncope, Denies rapid heart rate, Denies pedal edema, Denies edema, Denies leg edema, Denies lightheadedness, Denies palpitations, Denies dyspnea, Denies dyspnea on exertion and Denies orthopnea Resp Denies cough, Denies dyspnea and Denies dyspnea on exertion GI Denies hematochezia and Denies change in stool character Musc Denies abnormal gait, Denies muscle cramps, Denies muscle weakness, Denies numbness, Denies radiating pain into limb and Denies tingling Neuro Denies abnormal gait, Denies dizziness, Denies syncope, Denies numbness, Denies tingling and Denies weakness Endo Denies palpitations Physical Exam Vital Signs: Last Vital Signs Pulse 55 06/08/25 12:33 BP 122/62 06/08/25 12:33 BMI result Body Mass Index 26.7 Const General: comfortable and no acute distress Orientation/consciousness: patient oriented x3 HEENT Other: Unremarkable Head: Yes normal to inspection Neck Neck: Yes normal visual inspection Chest Chest palpation & inspection: normal inspection of the chest Resp Auscultation: clear to auscultation bilaterally Cardio Palpation: normal PMI Heart sounds: S1 normal heart sound present, S2 normal heart sound present, no gallops, no murmurs and no rubs GI Palpation (GI): Soft to palpation Back/Spine/Pelvis Other: unremarkable Skin General skin exam: no rashes or lesions noted Neuro General: patient oriented x3 Extrem General: Yes normal to inspection Psych Mental Status: mental status grossly normal Assessment & Plan Assessment & Plan (1) PAF (paroxysmal atrial fibrillation): Code(s): I48.0 - Paroxysmal atrial fibrillation Category: Medical (2) Atherosclerotic cardiovascular disease: Code(s): I25.10 - Atherosclerotic heart disease of [place] coronary artery without angina pectoris Category: Medical Plan Cardiac data reviewed. Per [facility] records, cardioversion in 2014. Had been on Flecainide since then. Echocardiogram with LVEF of 45-50% and RCA territory wall motion abnormality. Myocardial perfusion imaging study shows fixed inferior defect that could be from a prior infarct. With regard to the atrial fibrillation, not on flecainide because of suspicion of coronary disease. Did not respond to Multaq and then developed hypothyroidism with amiodarone. Currently only on beta-blockers. He does not want take anticoagulation spite of the stroke risk and he has been this way for many years. With regard to the coronary disease of, he has got no angina. Cardiac catheterization discussed in the past but isn't want anything done and just want to be treated conservatively. Follow up in 6 months. In the interim, he will call us with any concerns. Discussion Notes During the visit, we discussed the patient's current management of atrial fibrillation, including regular pulse monitoring and medication adherence. We also reviewed the patient's thyroid function, noting improvements in lab results, and confirmed the continuation of current thyroid medication. The patient was reassured about the occasional peripheral edema, and it was determined that no diuretic therapy is needed at this time. Patient was informed and verbally consented to the use of an ambient scribe for clinic note documentation during this visit. Patient Instructions: - Continue monitoring your pulse regularly to ensure normal heart rhythm. - Maintain adherence to your current medications: metoprolol, thyroid medication, and statin. - Monitor for any changes in swelling of feet and ankles and report if it worsens. - Follow up in six months for routine evaluation. Coding Level of Care Code Est Pt Level 4 (47002) Complex EM visit Add On G2211 Diagnoses PAF (paroxysmal atrial fibrillation) I48.0 Atherosclerotic cardiovascular disease I25.10
--- OUTSIDE RECORDS SUMMARY | 2025-06-08 13:49 | XMS_ITS | Encounter Summary ---
Author Organization [facility] Address [address] [place] [phone] Phone Care Team Providers Care Culled Fruit Packer Name Role Phone Ranjit Lainez MD Primary Care Provide r Reason for Referral * Physical Therapy (Routine) - Closed Specialty Diagnoses / Procedures Referred By Ramona ornelas Referred To Contact Physical Therapy Diagnoses Encounter for rehabilitation System, Provider Not In, [facility] [phone] [place] [address] Phone: tel: Referral ID Status Reason Start Date Expiration Date Visits Re quested Visits Authorized [id number] Closed 03/22/2019 09/06/2019 12 12 Encounter Details Date Type Department Care Team (Latest Contact Info) Description 03/17/2019 Transcribe Orders [facility] [address] [place] [phone] Ranjit Lainez MD [address] [place] [address] Encounter for rehabilitation (Primary Dx) Social History [...] Diagnoses Orde r Schedule Ambulatory referral to [facility] Physical Therapy Outpatient Referral Routine Encounter for rehabilitation Ordered: 03/17/2019 documented as of this encounter Visit Diagnoses Diagnosis Encounter for rehabilitation- Primary documented in this encounter Care Teams Culled Fruit Packer Relationship Specialty Start Date End Date Ranjit Lainez MD 100 [facility] [address] [place] [phone] PCP - General Internal Medicine 03/15/19 documented as of this encounter Additional Source Comments The information contained in this document represents components of the legal health record. It is not the complete legal health record.[facility]
--- OUTSIDE RECORDS SUMMARY | 2025-06-08 13:49 | XMS_ITS | Clinical Summary ---
Author Organization [facility] Address [address] [place] [address] Care Team Providers Care Generator Man Name Role Phone Wilfred Haile MD Primary Care Provider [phone] Allergies No known active allergies Medications simvastatin [...] Carcinoma. All oncologic care done at [facility] Cancer center. Dr. Peters. ++ 06/2020. [facility] Oncology. Tamoxifen Completed. Mammograms have [...] and SEVERE Stenosis at L4-5. ++ 04/2013. [facility]. Spinal Stenosis. Excellent Result. ++ [...] EF 50-55%. LVH 12 mm. ++ 12/2014. ECHO([place]): EF 55%. Excellent. Osteoarthritis of hip 06/11/2010 Overview (07/04/2019): 2009. The right hip is the worst and most clinically troublesome. The left is also moderately arthritic but scant clinical Sx. ++ 09/2018. Endstage OA RIGHT. THR Needed. Dr. Zamarripa requested. +01/2019. Dr. Cal Barnes. [facility]. RIGHT THR. Vitamin B12 deficiency [...] ++ 12/2014. PAF. EPS Attending at the [place]. Dr. Guzmán. Cardioversion. NSR. Assessment & Plan [...] complete this topic Procedures * Due to [place] state law, this organization might not be sharing negative HIV tests. Procedure Name Priority Date/Time Associated Diagnosis Comments BASIC METABOLIC PANEL Routine 12/31/2020 1:[address] CHEST WO CONTRAST Routine 09/26/2016 11:29 AM EST from Last 3 Months or Most Recently Relevant to Health Maintenance Results * Due to [place] state law, this organization might not be sharing negative HIV tests. * Basic Metabolic Panel (12/31/2020 1:30 PM EDT) Glucose 81 65 - 139 mg/dL 12/31/2020 10:10 PM EDT [employer] [facility] Comment: Non-fasting reference interval BUN 15 7 - 25 mg/dL 12/31/2020 10:10 PM [employer] [facility] Creatinine 1.12 0.70 - 1.18 mg/dL 12/31/2020 10:10 PM [employer] [facility] Comment: For patients >49 years of age, the reference limit for Creatinine is approximately 13% higher for people identified as -[place]gr[place]. eGFR Non- 63 > OR = 60 mL/min/1 .73m2 12/31/2020 10:10 PM [employer] [facility] eGFR 73 > OR = 60 mL/min/1 .73m2 12/31/2020 10:10 PM [employer] Bun/Creatinine Ratio NOT APPLICABLE 6 - 22 (calc) 12/31/2020 10:10 PM [employer] [facility] Sodium 137 135 - 146 mmol/L 12/31/2020 10:10 PM [facility] Potassium 4.0 3.5 - 5.3 mmol/L 12/31/2020 10:10 PM [employer] Chloride 102 98 - 110 mmol/L 12/31/2020 10:10 PM [employer] Carbon Dioxide 27 20 - 32 mmol/L 12/31/2020 10:10 PM [employer] [facility] Calcium 9.2 8.6 - 10.3 mg/dL 12/31/2020 10:10 PM [employer] Blood Structure of peripheral vein / Unknown 12/31/2020 1:30 PM EDT 12/31/2020 9:09 PM EDT Narrative [facility] - 12/31/2020 11:11 PM EDT FASTING:NO us Ranjit Lainez MD LAB BLOOD ORDERABLES Fin al Result [facility] [address] [facility] [address] Floor, [place] [address], [place] [phone] [employer] [facility] [address] [place] [address] * CT Chest WO Contrast (09/26/2016 11:29 [...] and agree with the resident's interpretation. WSN: [id number] Narrative 09/29/2016 1:12 PM EST EXAMINATION: Chest [...] and agree with the resident's interpretation. WSN: [id number] Ranjit Lainez MD IMG CT PROCEDURES Final Result from Last 3 Months or Most Recently Relevant to Health Maintenance Insurance Advance Directives Documents on File Type Date Recorded Patient Gold Marker Expl anation Health Care Proxy 01/03/2019 11:59 AM 12/07 Health Care Proxy 07/12/2010 12:00 AM 0 01/2010 Care Teams Generator Man Relationship Specialty Start Date End Date Wilfred Haile MD [address] [place] [address] PCP - General Family Medicine 06/22/23
--- OUTSIDE RECORDS SUMMARY | 2025-06-08 13:49 | XMS_ITS | Clinical Summary ---
Author Organization [facility] Address [address] [address] Phone Care Team Providers Care Test Grader Name Role Phone Ranjit Lainez MD Primary [...] topic Medical Devices Not on file Insurance [place] [employer] [place] [employer] [place] [employer] [place] [employer] [place] [employer] RE[employer] [place] [employer] [place] [employer] [place] [employer] [place] [employer] Care Teams Test Grader Relationship Specialty Start Date End Date Ranjit Lainez MD [address] [facility] [address] [place] [address] PCP - General Internal Medicine 03/15/19 Additional Source Comments The information contained in this document represents components of the legal health record. It is not the complete legal health record.[facility]
== END 2025-06-08 12:45 | disposition home or self-care (01) ==
LOC: HO.HCS 12:11
PROVIDERS: PCP Family Medicine; Visit Provider Internal Medicine
DX: I48.0 Paroxysmal atrial fibrillation (principal); I25.10 Atherosclerotic heart disease of native coronary artery without angina pectoris
CPT/HCPCS: 99214; G2211

== ENCOUNTER → 2025-06-08 12:10 | Outpatient (BNVA) | payer MEDICARE, SELFPAY | PROVIDERS: PCP Family Medicine; Visit Provider Internal Medicine | DX: I48.0 Paroxysmal atrial fibrillation (principal); I25.10 Atherosclerotic heart disease of native coronary artery without angina pectoris | CPT/HCPCS: 99212 ==

== ENCOUNTER 2025-08-07 11:12 | Outpatient (AMB) | payer MEDICARE, SELFPAY ==
[2025-08-07 12:15] VITALS: BP 134/88; PULSE 57; TEMP 36.6; O2SAT 97; BMI 27.6
--- NOTE | 2025-08-07 12:15 | MHC.PC.OV ---
Vital Signs 08/07/25 12:15 Height 5 ft 11 in Weight 198 lb BMI 27.6 BP 134/88 Blood Pressure Location Lt brachial Position Sitting Pulse 57 Pulse Source Pulse Oximeter Temp 97.8 F Temp Source Temporal Artery Scan Pulse Oximetry (%) 97 Oxygen Delivery Method Room Air Intake Visit Reasons: CPE Allergies No Known Allergies Allergy (Verified 08/07/25 12:16) Medication List - Last Reconciled 08/07/25 by Wilfred Haile MD atorvastatin 40 mg PO QPM levothyroxine (Levoxyl) 75 mcg PO DAILY metoprolol tartrate 25 mg PO BID Tobacco use date assessed: 08/07/25 Fall risk assessment: No Falls in past year Last assessed Fall Risk: 08/07/25 Dental Screening Dental Screen Date: 08/07/25 Did you have a dental visit in the last 12 months?: No Did you have a dental problem in the last 6 months where you did not have access to dental care?: No Was dental information given to patient?: No HPI CPE HPI Details 79 y/o male presents for an extended exam with f/u labs, [facility] maint. No recent CPE-labs to review. Hx of hypothyroidism. BP today 134/88, 57p. He is on metoprolol 25mg b.i.d. Hx of PAF. PFSH Medical History Hypothyroidism Screening for prostate cancer Screening for colon cancer Adult general medical exam Emphysema of lung Encounter for monitoring flecainide therapy Smoker History of atrial fibrillation Laboratory exam ordered as part of routine general medical examination PAF (paroxysmal atrial fibrillation) Hyperlipidemia History of cancer of right breast Personal history of nicotine dependence Surgical History History of cardioversion H/O colonoscopy History of right mastectomy History of total right hip arthroplasty History of back surgery Family History Paternal Grandfather Heart attack Mother Alzheimer disease Father Cancer Social History Housing: House Are you a primary healthcare economics consultant to a significant other at home: No Do you presently have visiting nurse or other home services: No Alcohol intake: current Alcohol intake frequency: 0-2 drinks per day Comment: social Patient Tobacco Use Status: Current everyday Tobacco user Tobacco use type: Cigarette Cigarette Packs Per Day: 1 Cigarettes Per Day: 20.0 Years Smoked: onset 13, 1ppd x 63yrs, 60PYH e-Cigarette/Vaping Use: Never Used Second Hand Smoke Exposure: Yes service: Yes Current occupational status: retired Cognitive needs: No Hearing needs: No Vision needs: Yes (wears glasses) Questionnaire PHQ-9 Over the last 2 weeks, how often have you been bothered by any of the following problems? 1. Little interest or pleasure in doing things: not at all 2. Feeling down, depressed, or hopeless: not at all 3. Trouble falling or staying asleep, or sleeping too much: not at all 4. Feeling tired or having little energy: not at all 5. Poor appetite or overeating: not at all 6. Feeling bad about yourself - or that you are a failure or have let yourself or your family down: not at all 7. Trouble concentrating on things, such as reading the newspaper or watching television: not at all 8. Moving or speaking so slowly that other people could have noticed. Or the opposite - being so fidgety or restless that you have been moving around a lot more than usual: not at all 9. Thoughts that you would be better off or of hurting yourself in some way: not at all Total score: 0 Depression Screening Interpretation: Negative Depression Screening Done: Yes Source: Developed by Drs. Daniel St, Irasema Rios, Henry Soria and colleagues, with an educational mercedez from [employer]. Thrive Questionnaire Date Thrive assessed: 11/10/24 I am a: Patient What is your living situation today?: I have a steady place to live Within the past 12 months, did the food you bought not last and you didn't have the money to get more?: Never true Within the past 12 months, did you worry whether your food would run out before you got money to buy more?: Never true Do you have trouble paying for medicines?: Yes Do you have trouble getting transportation to medical appointments?: No Do you have trouble paying your heating and electricity bill?: No Do you have trouble taking care of your child, family member or friend?: No Do you have trouble with day-to-day activities such as bathing, preparing meals, shopping, managing finances, etc.?: No Are you currently unemployed and looking for a job?: No Are you interested in more education?: No Please select the resources that you would like help with: None Currently or been in a relationship where the following occur: No concerns reported THRIVE Score: 0 AUDIT C Alcohol Use Questionnaire (AUDIT-C) 1. How often do you have a drink containing alcohol?: 4 or more times a week 2. How many drinks containing alcohol do you have on a typical day when you are drinking?: 1 or 2 3. How often do you have six or more drinks on one occasion?: Never Total Score: 4 NANCY-7 AMB Questionnaire NANCY-7 Date NANCY - 7 assessed: 01/11/25 Feeling nervous, anxious, or on edge: 0 = Not at all Not being able to stop or control worryin = Not at all Worrying too much about different things: 0 = Not at all Trouble relaxin = Not at all Being so restless that it is hard to sit still: 0 = Not at all Becoming easily annoyed or irritable: 0 = Not at all Feeling afraid as if something awful might happen: 0 = Not at all Total NANCY-7 score (0-4 normal; 5-9 mild; 10-14 moderate; 15-21 severe): 0 Source: Developed by Drs. Daniel St, Irasema iRos, Henry Soria and colleagues, with an educational mercedez from [employer]. Review of Systems Const Denies chills, Denies fatigue, Denies fever(s), Denies headache(s) and Denies weakness Eyes Denies change in vision ENT Denies dizziness, Denies headache(s), Denies hearing loss, Denies nasal congestion, Denies sinus pain, Denies sinus pressure and Denies sore throat Card Denies chest pain, Denies lightheadedness, Denies dyspnea and Denies other (palpitations) Resp Denies cough, Denies dyspnea and Denies wheezing GI Denies abdominal pain, Denies melena, Denies hematochezia, Denies change in bowel habits, Denies dyspepsia and Denies nausea Denies hematuria and Denies dysuria Musc Denies abnormal gait, Denies myalgias, Denies arthralgias, Denies numbness and Denies tingling Skin/Breast Denies rash, Denies unusual bruising and Denies wounds Neuro Denies abnormal gait, Denies dizziness, Denies headache(s), Denies memory loss, Denies numbness, Denies Sensory deficit (Neuro), Denies tingling and Denies weakness Psych Denies anxiety, Denies depression and Denies memory loss Endo Denies cold intolerance, Denies fatigue, Denies heat intolerance, Denies polydipsia and Denies polyuria Edmundo/Lymph Denies easy bleeding and Denies easy bruising Aller/Immun Denies wheezing Physical exam (Primary Care) Vital Signs: Last Vital Signs Temp 97.8 F 08/07/25 12:15 Pulse 57 08/07/25 12:15 BP 134/88 08/07/25 12:15 Pulse Ox 97 08/07/25 12:15 Oxygen Delivery Method Room Air 08/07/25 12:15 BMI result Body Mass Index 27.6 Tobacco/Smoking Status: Tobacco use Status Tobacco use date assessed 08/07/25 08/07/25 12:16 Patient Tobacco Use Status Current everyday Tobacco 08/07/25 12:16 Tobacco use type Cigarette 08/07/25 12:16 e-Cigarette/Vaping Use Never Used 08/07/25 12:16 PHQ-9: PHQ-9 Score PHQ-9: Total score 0 08/07/25 12:19 Depression Screening Interpretation: Negative Thrive Assessment: Date of Thrive Assessment Date Thrive assessed 11/10/24 08/07/25 12:16 Currently or been in a relationship where the following occur: No concerns reported Const General: no acute distress, well developed, alert and awake Nutritional Appearance: well nourished Orientation/consciousness: patient oriented x3 HENMT Head: Yes normocephalic and Yes atraumatic Ears: hearing grossly normal bilaterally and TM's normal bilaterally General nose exam: Normal external nose present and Normal nares present Mouth: Normal oral and palatal mucosa present and moist mucous membranes Teeth and gingiva: dentition normal Throat: Yes posterior oropharynx normal Eyes General: appearance normal, both eyes and all related structures Pupils: Equal, round and reactive pupils present and Pupil accommodation reflex normal EOM: EOMs intact bilaterally Neck Neck: Yes normal visual inspection, Yes no lymphadenopathy and Yes trachea midline Thyroid: Thyroid normal Carotids: no bruits Lymphatic: no lymphadenopathy noted Chest Chest palpation & inspection: normal inspection of the chest Resp Effort & Inspection: normal respiratory effort Auscultation: clear to auscultation bilaterally Cardio Rate: regular rate Rhythm: regular rhythm Heart sounds: S1 normal heart sound present, S2 normal heart sound present, no gallops, no murmurs and no rubs Bruits: no abdominal aortic bruits and no carotid bruits GI Palpation (GI): No Abdominal aortic bruit present, Soft to palpation, nontender, No hepatosplenomegaly present and No Rebound tenderness present Auscultation: normal bowel sounds General: Yes no CVA tenderness Back/Spine/Pelvis Back: no CVA tenderness Cervical Spine: cervical ROM normal and No Cervical spine tenderness Thoracic/Lumbar Spine: thoraco-lumbar ROM normal, No pain with thoraco-lumbar ROM, No thoracic spinal tenderness and No lumbar spinal tenderness Skin Lesions: no lesions Rashes: no rashes Trauma: no lacerations or abrasions Wounds: no wounds Nails: normal Neuro General: patient oriented x3 Cranial nerves: Yes Equal, round and reactive pupils present Cognition (Neuro): normal cognition Gait exam (Neuro): Normal gait present Motor exam (neuro): 5/5 motor strength present throughout Sensory Exam: No Sensory deficit (Neuro) Deep tendon reflexes (DTR's): Right patellar reflex intensity grade: 2+ and Left patellar reflex intensity grade: 2+ Extrem General: Yes normal to inspection and No edema Psych Appearance: grossly normal Affect: normal affect Attitude: cooperative Thought process: Normal thought process present Coding Level of Care Code Est Pt Level 4 (81941) Diagnoses Hypertension I10 PAF (paroxysmal atrial fibrillation) I48.0 Hyperlipidemia E78.5 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 Goal is less than 130/80 Continue current medication (2) PAF (paroxysmal atrial fibrillation): Code(s): I48.0 - Paroxysmal atrial fibrillation Category: Medical Plan: Rate controlled on metoprolol He is not anticoagulated Can use aspirin 81 mg as has never had GI bleeding (3) Hyperlipidemia: Code(s): E78.5 - Hyperlipidemia, unspecified Category: Medical Plan: Lipids are controlled on atorvastatin Continue medications (4) Hypothyroidism: Code(s): E03.9 - Hypothyroidism, unspecified Category: Medical Qualifiers: Hypothyroidism type: due to medication Qualified Code(s): E03.2 - Hypothyroidism due to medicaments and other exogenous substances Plan: Followed by endocrinology (5) Adult general medical exam: Code(s): Z00.00 - Encounter for general adult medical examination without abnormal findings Category: Medical Plan: 79-year-old male presents for an extended exam Encouraged healthy diet with active lifestyle increase exercise as tolerated
--- OUTSIDE RECORDS SUMMARY | 2025-08-07 14:40 | XMS_ITS | Encounter Summary ---
Author Organization [facility] Address [address] [place] [address] Phone Care Team Providers Care Textile Scrap Salvager Name Role Phone Ranjit Lainez MD Primary Care Provide r Reason for Referral * Physical Therapy (Routine) - Closed Specialty Diagnoses / Procedures Referred By Ramona ornelas Referred To Contact Physical Therapy Diagnoses Encounter for rehabilitation System, Provider Not In, [facility] [id number] [place] [address] Phone: tel: Referral ID Status Reason Start Date Expiration Date Visits Re quested Visits Authorized [id number] Closed 03/22/2019 09/06/2019 12 12 Encounter Details Date Type Department Care Team (Latest Contact Info) Description 03/17/2019 Transcribe Orders [facility] [address] [place] [id number] Ranjit Lainez MD [address] [place] [address] Encounter for rehabilitation (Primary Dx) Social History [...] Diagnoses Orde r Schedule Ambulatory referral to [facility] Physical Therapy Outpatient Referral Routine Encounter for rehabilitation Ordered: 03/17/2019 documented as of this encounter Visit Diagnoses Diagnosis Encounter for rehabilitation- Primary documented in this encounter Care Teams Textile Scrap Salvager Relationship Specialty Start Date End Date Ranjit Lainez MD [address] [facility] [address] [place] [phone] PCP - General Internal Medicine 03/15/19 documented as of this encounter Additional Source Comments The information contained in this document represents components of the legal health record. It is not the complete legal health record.[facility]
--- OUTSIDE RECORDS SUMMARY | 2025-08-07 14:40 | XMS_ITS | Clinical Summary ---
Author Organization [facility] Address [address] [place] [address] Care Team Providers Care Fiber Product Cutting Machine Operator Name Role Phone Wilfred Haile MD Primary Care Provider [phone] Allergies No known active allergies Medications simvastatin [...] Ductal Carcinoma. All oncologic care done at [facility] Cancer center. Dr. Peters. ++ 06/2020. [facility] Oncology. Tamoxifen Completed. Mammograms [...] and SEVERE Stenosis at L4-5. ++ 04/2013. [facility]. Spinal Stenosis. Excellent Result. ++ [...] EF 50-55%. LVH 12 mm. ++ 12/2014. ECHO([place]): EF 55%. Excellent. Osteoarthritis of hip 06/11/2010 [...] ++ 12/2014. PAF. EPS Attending at the [place]. Dr. Guzmán. Cardioversion. NSR. Assessment & Plan [...] Screening 09/07/2024 Depression Screening and Follow-Up 09/07/2024 Fall Risk Screening 09/07/2024 Health Care Proxy Review 09/07/2024 Social Drivers of Health Annual Screening 09/07/2024 Influenza Vaccine (#1) 2025 CT Lung Cancer Screening (12 months, previous LungRADS 1 or 2) Discontinued 09/26/2016, 07/26/2015 Hepatitis B Vaccines Aged Out No long er eligible based on patient's age to complete this topic Procedures * Due to [place] state law, this organization might not be sharing negative HIV tests. Procedure Name Priority Date/Time Associated Diagnosis Comments BASIC METABOLIC PANEL Routine 12/31/2020 1:[address] CHEST WO CONTRAST Routine 09/26/2016 11:29 AM EST from Last 3 Months or Most Recently Relevant to Health Maintenance Results * Due to [place] state law, this organization might not be sharing negative HIV tests. * Basic Metabolic Panel (12/31/2020 1:30 PM EDT) Glucose 81 65 - 139 mg/dL 12/31/2020 10:10 PM EDT [employer] [facility] Comment: Non-fasting reference interval BUN 15 7 - 25 mg/dL 12/31/2020 10:10 PM [employer] [facility] Creatinine 1.12 0.70 - 1.18 mg/dL 12/31/2020 10:10 PM [employer] [facility] Comment: For patients >49 years of age, the reference limit for Creatinine is approximately 13% higher for people identified as -[place]. eGFR Non- 63 > OR = 60 mL/min/1 .73m2 12/31/2020 10:10 PM [employer] [facility] eGFR 73 > OR = 60 mL/min/1 .73m2 12/31/2020 10:10 PM [employer] [facility] Bun/Creatinine Ratio NOT APPLICABLE 6 - 22 (calc) 12/31/2020 10:10 PM [employer] [facility] Sodium 137 135 - 146 mmol/L 12/31/2020 10:10 PM [employer] [facility] Potassium 4.0 3.5 - 5.3 mmol/L 12/31/2020 10:10 PM [employer] [facility] Chloride 102 98 - 110 mmol/L 12/31/2020 10:10 PM [employer] [facility] Carbon Dioxide 27 20 - 32 mmol/L 12/31/2020 10:10 PM [employer] [facility] Calcium 9.2 8.6 - 10.3 mg/dL 12/31/2020 10:10 PM [employer] [facility] Blood Structure of peripheral vein / Unknown 12/31/2020 1:30 PM EDT 12/31/2020 9:09 PM EDT Narrative [facility] - 12/31/2020 11:11 PM EDT FASTING:NO us Ranjit Lainez MD LAB BLOOD ORDERABLES Fin al Result [facility] [address] [facility] 3rd Floor, [place] [address], [place] [phone] [email or web address] [facility] [address] [place] [address] * CT Chest WO Contrast (09/26/2016 11:29 [...] and agree with the resident's interpretation. WSN: [id number] Narrative 09/29/2016 1:12 PM EST EXAMINATION: Chest [...] and agree with the resident's interpretation. WSN: [id number] Ranjit Lainez MD IMG CT PROCEDURES Final Result from Last 3 Months or Most Recently Relevant to Health Maintenance Insurance Advance Directives Documents on File Type Date Recorded Patient In Class Special Education Teacher Expl anation Health Care Proxy 01/03/2019 11:59 AM 04/2 05/2019 Health Care Proxy 07/12/2010 12:00 AM 01/2010 Care Teams Fiber Product Cutting Machine Operator Relationship Specialty Start Date End Date Wilfred Haile MD [address] [place] [address] PCP - General Family Medicine 06/22/23
--- OUTSIDE RECORDS SUMMARY | 2025-08-07 14:40 | XMS_ITS | Clinical Summary ---
Author Organization [facility] Address [address] [address] Phone Care Team Providers Care Slice Plug Cutter Operator Helper Name Role Phone Ranjit Lainez MD Primary [...] topic Medical Devices Not on file Insurance [employer] [place] [employer] Care Teams Slice Plug Cutter Operator Helper Relationship Specialty Start Date End Date Ranjit Lainez MD [address] [facility] [address] [place] [address] PCP - General Internal Medicine 03/15/19 Additional Source Comments The information contained in this document represents components of the legal health record. It is not the complete legal health record.[facility]
== END 2025-08-07 13:23 | disposition home or self-care (01) ==
LOC: HO.HMCFM 11:13
PROVIDERS: PCP Family Medicine; Visit Provider Family Medicine
DX: I10 Essential (primary) hypertension (principal); I48.0 Paroxysmal atrial fibrillation; E78.5 Hyperlipidemia, unspecified; E03.2 Hypothyroidism due to medicaments and other exogenous substances; Z00.00 Encounter for general adult medical examination without abnormal findings

== ENCOUNTER 2025-08-07 11:12 | Outpatient (REF) | payer MEDICARE, SELFPAY ==
[2025-08-07 14:20] LABS: MANUAL DIFF FLAG NO
[2025-08-07 14:26] LABS: Appearance Urine Clear; Glucose Urine UA Negative (Negative); PH 7.5 (5.0-9.0); Specific Gravity - Urine 1.020 (1.005-1.025)
[2025-08-07 14:30] LABS: Hematocrit 41.0 % (42.0-52.0); Hemoglobin 13.4 g/dl (14.0-18.0); Imm Gran Abs Auto 0.04 X10*3/uL (0.00-0.03); Imm Gran Pct Auto 0.4 % (0.0-0.4); Lymphocytes Absolute Auto 2.6 X10*3/uL (1.2-4.9); Mean Corpuscular HGB Conc 32.7 g/dl (31.0-36.0); Mean Corpuscular Hemoglobin 31.8 pg (27.0-33.0); Mean Corpuscular Volume 97.2 fL (80.0-98.0); NRBC Abs Auto 0.000 X10*3/uL (0.0-0.012); NRBC Pct Auto 0.0 /100WBC (0.0-0.2); Platelet Count 243 X10*3/uL (160-400); Red Blood Count 4.22 X10*6/uL (4.60-5.80); White Blood Count 10.8 X10*3/uL (4.8-10.8)
[2025-08-07 15:01] LABS: Alanine Aminotransferase 26 U/L (0-40); Albumin Level 4.0 g/dL (3.5-5.0); Alkaline Phosphatase 91 U/L (39-117); Anion Gap 10 (12-20); Aspartate Amino Transferase 45 U/L (5-37); Blood Urea Nitrogen 16 mg/dL (9-16); Calcium 8.8 mg/dL (8.4-10.2); Carbon Dioxide 29 mmol/L (22-29); Chloride 108 mmol/L (96-108); Cholesterol 147 mg/dL (<200); Estimated Glomerular Filt Rate > 60; HDL Cholesterol 64 mg/dL (>40); Potassium 4.5 mmol/L (3.3-5.1); Sodium 142 mmol/L (135-145); Total Protein 6.7 g/dL (6.5-8.0); Triglycerides 65 mg/dL (<150)
[2025-08-07 15:04] LABS: Thyroid Stimulating Hormone 4.86 uIU/mL (0.32-4.0)
[2025-08-07 15:09] LABS: Free T4 (Free Thyroxine) 0.95 ng/dL (0.71-1.85)
[2025-08-07 15:17] LABS: Microalbum/Creatinine Ratio Ur 31.5 ug/mg cr (<30)
== END 2025-08-07 11:13 | disposition home or self-care (01) ==
LOC: HO.WFDLDS 11:12
PROVIDERS: Student in an Organized Health Care Education/Training Program; PCP Family Medicine; Visit Provider Family Medicine
DX: Z00.00 Encounter for general adult medical examination without abnormal findings (principal); I10 Essential (primary) hypertension; I48.0 Paroxysmal atrial fibrillation; E78.5 Hyperlipidemia, unspecified; E03.2 Hypothyroidism due to medicaments and other exogenous substances
CPT/HCPCS: 36415; 80053; 80061; 81003; 82043; 82570; 84153; 84439; 84443; 85025; 99212